=== PATIENT | female | born 1985 | race Caucasian/White ===

== ENCOUNTER → 2017-03-19 10:02 | Outpatient (CLI) | payer BC, SELFPAY | PROVIDERS: Family Provider Family Medicine; PCP Family Medicine; Visit Provider Obstetrics & Gynecology | DX: O28.5 Abnormal chromosomal and genetic finding on antenatal screening of mother (principal); Z3A.00 Weeks of gestation of pregnancy not specified | CPT/HCPCS: 36415 ==

== ENCOUNTER → 2017-04-10 09:27 | Outpatient (CLI) | payer BC, SELFPAY ==
[2017-04-10 13:19] LABS: Absolute Lymphocyte Count 0.97 X10^3/ul (0.83-4.51); Absolute Neutrophil Count 2.7 X10^3/uL (2.0-7.7); Basophil# 0.01 X10^3/uL; Basophil% 0.3 % (0-1); Eosinophil# 0.04 X10^3/uL; Hematocrit 37.7 % (37-47); Hemoglobin 12.7 g/dl (12.0-15.0); Lymphocyte # 0.97 X10^3/ul (4.0); Lymphocyte % 24.9 % (19-41); Mean Corp Hgb Conc 33.7 g/gl (32-36); Mean Corpuscular Hgb 31.4 pg (27.0-32.0); Mean Corpuscular Volume 93.3 fL (81-99); Mean Platelet Vol. 10.3 fl (6.2-12.0); Monocyte# 0.19 X10^3/uL; Monocyte% 4.9 % (0-10); Neutrophil # 2.69 X10^3/uL (2.7-7.7); Neutrophil % 68.9 % (47-70); Platelet Count 210 K/mm3 (150-450); RBC Distribution Width CV 12.6 % (11.6-14.6); RBC Distribution Width SD 43.2 fl (35.1-43.9); Red Blood Count 4.04 M/mm3 (4.2-5.4); White Blood Count 3.9 K/mm3 (4.4-11.0)
[2017-04-10 13:29] LABS: POSITIVE COUNT NO; POSITIVE DIFFERENTIAL NO; POSITIVE MORPHOLOGY NO
[2017-04-11 07:07] LABS: HIV 1/0/2 SCREEN 4TH GEN Non Reactive (Non Reactive)
[2017-04-11 08:01] LABS: HEPATITIS B SURFACE AG Negative (Negative)
[2017-04-11 10:46] LABS: Rubella IgG 33.5 IU/mL
[2017-04-13 07:08] LABS: Rapid Plasmin Reagin (RPR) NONREACTIVE (NONREACTIVE)
== END ==
PROVIDERS: Family Provider Family Medicine; PCP Family Medicine; Visit Provider Obstetrics & Gynecology
DX: Z34.90 Encounter for supervision of normal pregnancy, unspecified, unspecified trimester (principal)
CPT/HCPCS: 36415; 85025; 86592; 86703; 86762; 86850; 86900; 87340

== ENCOUNTER → 2017-05-24 15:33 | Outpatient (CLI) | payer BC, SELFPAY | LOC: LAB 15:35 | PROVIDERS: Family Provider Family Medicine; PCP Family Medicine; Visit Provider Obstetrics & Gynecology | DX: O26.21 Pregnancy care for patient with recurrent pregnancy loss, first trimester (principal); R76.0 Raised antibody titer; Z3A.00 Weeks of gestation of pregnancy not specified | CPT/HCPCS: 36415 ==

== ENCOUNTER → 2017-06-26 11:26 | Outpatient (CLI) | payer BC, SELFPAY ==
[2017-06-26 12:39] LABS: Absolute Lymphocyte Count 1.31 X10^3/ul (0.83-4.51); Absolute Neutrophil Count 4.2 X10^3/uL (2.0-7.7); Basophil# 0.01 X10^3/uL; Basophil% 0.2 % (0-1); Eosinophil# 0.05 X10^3/uL; Eosinophils% 0.8 % (0-5); Hematocrit 34.5 % (37-47); Hemoglobin 11.1 g/dl (12.0-15.0); Lymphocyte # 1.31 X10^3/ul (4.0); Lymphocyte % 22.1 % (19-41); Mean Corp Hgb Conc 32.2 g/gl (32-36); Mean Corpuscular Volume 96.4 fL (81-99); Mean Platelet Vol. 9.4 fl (6.2-12.0); Monocyte# 0.32 X10^3/uL; Monocyte% 5.4 % (0-10); Neutrophil # 4.24 X10^3/uL (2.7-7.7); Neutrophil % 71.3 % (47-70); Platelet Count 184 K/mm3 (150-450); RBC Distribution Width CV 13.6 % (11.6-14.6); RBC Distribution Width SD 47.5 fl (35.1-43.9); Red Blood Count 3.58 M/mm3 (4.2-5.4); White Blood Count 5.9 K/mm3 (4.4-11.0)
[2017-06-26 12:42] LABS: POSITIVE COUNT NO; POSITIVE DIFFERENTIAL NO; POSITIVE MORPHOLOGY NO
[2017-06-26 13:09] LABS: Glucose Challenge Gest 1H 50g 103 mg/dL (70-140)
== END ==
PROVIDERS: Family Provider Family Medicine; PCP Family Medicine; Visit Provider Nurse Practitioner Women's Health
DX: O09.92 Supervision of high risk pregnancy, unspecified, second trimester (principal)
CPT/HCPCS: 36415; 82950; 85025

== ENCOUNTER 2017-07-21 20:25 | Outpatient (CLI) | payer BC, SELFPAY ==
[2017-07-21] MEDS: Lactated Ringers 1,000 ML 999 ML IV (21:00)
[2017-07-21 21:09] LABS: Absolute Neutrophil Count 5.4 X10^3/uL (2.0-7.7); Basophil# 0.01 X10^3/uL; Basophil% 0.1 % (0-1); Eosinophil# 0.09 X10^3/uL; Eosinophils% 1.2 % (0-5); Hematocrit 35.3 % (37-47); Hemoglobin 11.7 g/dl (12.0-15.0); Lymphocyte % 20.1 % (19-41); Mean Corp Hgb Conc 33.1 g/gl (32-36); Mean Corpuscular Hgb 31.4 pg (27.0-32.0); Mean Corpuscular Volume 94.6 fL (81-99); Mean Platelet Vol. 9.4 fl (6.2-12.0); Monocyte# 0.45 X10^3/uL; Neutrophil # 5.42 X10^3/uL (2.7-7.7); Neutrophil % 72.5 % (47-70); POSITIVE COUNT NO; POSITIVE DIFFERENTIAL NO; POSITIVE MORPHOLOGY NO; Platelet Count 188 K/mm3 (150-450); RBC Distribution Width SD 48.1 fl (35.1-43.9); Red Blood Count 3.73 M/mm3 (4.2-5.4); White Blood Count 7.5 K/mm3 (4.4-11.0)
[2017-07-21 21:11] VITALS: BMI 32.5
[2017-07-21] MEDS: HYDROmorphone 1 MG/ML Syringe IV (21:16)
[2017-07-21 21:52] LABS: Color, Urine Yellow (Yellow); Glucose, Dipstick Normal (Normal); Ketone-Dipstick Negative (Negative); Leukocyte Esterase-Dipstick 25 /ul (Negative); Nitrite-Dipstick Negative (Negative); Occult Blood-Urine 250 /ul (Negative); Protein-Dipstick 30 mg/dl (Negative); Specific Gravity, Urine 1.015 (1.002-1.030); Urine Bilirubin Dipstick Negative (Negative); Urine Clarity Sl. Cloudy (Clear); Urine Urobilinogen 8 mg/dl (Normal)
[2017-07-21 22:00] LABS: Red Blood Cells-Urine 10-25 SEEN /hpf (0-5); Squamous Epithelial Cells - UA 0-5 SEEN /hpf (5-10); White Blood Cells 0-5 SEEN /hpf (0-5)
[2017-07-21 22:01] LABS: Bacteria 1+ /hpf (None Seen); Mucous, Urine 1+ /hpf (<or=2+)
[2017-07-21] MEDS: Lactated Ringers 1,000 ML 200 ML IV (22:02)
[2017-07-21] MEDS: oxyCODONE 5 MG Tablet PO (23:20)
[2017-07-22] MEDS: proMETHazine 25 MG/ML Syringe 12.5 MG IV (01:00)
[2017-07-22] MEDS: Lactated Ringers 1,000 ML 200 ML IV ×2 (03:10→07:58)
--- NOTE | 2017-07-22 07:00 | US_ITS ---
STUDY: RENAL ULTRASOUND - COMPLETE REASON FOR EXAM: Female, 31 years old. Hematuria TECHNIQUE: Ultrasound evaluation of the kidneys was performed with real-time and static bird-scale imaging. COMPARISON: None. FINDINGS: RIGHT KIDNEY: Normal location of the right kidney, which is normal in size. The right kidney measures 10.8 x 5.5 x 4.9 cm. There is a normal cortex of the right kidney. The renal cortex measures 1.6 cm. There is no right renal mass or cyst. There may be a punctate stone in the right kidney versus artifact. There is mild right pelviectasis. DISTAL RIGHT URETER: There is non-visualization of the distal right ureter. There is no demonstrated right ureterovesical junction calculus. There is a visualized right ureteral jet. LEFT KIDNEY: Normal location of the left kidney, which is normal in size. The left kidney measures 11.2 x 5.2 x 4.0 cm. There is a normal cortex of the left kidney. The renal cortex measures 1.5 cm. There is no left renal mass or cyst. There are no left renal calculi. There is no left hydronephrosis. DISTAL LEFT URETER: There is non-visualization of the distal left ureter. There is no demonstrated left ureterovesical junction calculus. There is a visualized left ureteral jet. BLADDER: The distended urinary bladder has a volume of 544.6 ml. The empty urinary bladder has a volume of 10.6 ml. There is a normal wall thickness of the distended urinary bladder. There is no demonstrated mass within the urinary bladder. On the right side of the bladder there is a 6.7 mm echogenicity suggesting a stone at the right ureterovesicular junction. There is a partially visualized gravid uterus. US/Kidney and Bladder IMPRESSION: Mild right pelviectasis. There is a 6.7 mm echogenic density at the right side base of the bladder suggestive of a small bladder stone or stone just at the right-sided ureterovesicular junction. Punctate stone right kidney suggested versus artifact. No visualized left-sided hydronephrosis. Electronically Signed: Janette Christian MD at 10:42 EDT Tel , Service support ,
--- NOTE | 2017-07-22 11:02 | OB.TRI.NOTE ---
- Problem List (1) Calculus of kidney affecting in third trimester Status: Acute Comment: percocet given 07/22/17, fluids. in right side of bladder History of Present Illness Date of Service: 07/22/17 Was patient seen by the physician?: Yes Reason For Visit: KIDNEY STONES Date of Service: 07/22/17 Final ANGELIKA: 09/25/17 Gestational age: 30 Weeks and 5 Days History of Present Illness: 31 yo presents at 30 weeks with right sided back pain, severe. she has a history of kidney stones. she denies any fever, vaginal bleeding, regular ctxs. she admits good fm. Allergies No Known Allergies Allergy (Verified 07/21/17 21:14) Physical Exam General: Alert, Cooperative, No apparent distress HEENT: Atraumatic, Normocephalic. Negative for: Thyromegaly, Lymphadenopathy Cardiovascular: Regular rate Lungs: Normal air movement Abdomen: Soft, Non Tender, Gravid Neurological: Deep Tendon Reflexes 2+/4 and Symmetrical, Neuro grossly intact. 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 Negative for: Vulvar lesions Estimated gestational size: Appropriate for gestational size Presentation: Cephalic NST - FHR Rate Baby A Baseline: 150 Variability:: Moderate Accelerations:: 15 x 15 Decelerations:: None NST Reactive:: Yes FHR Category:: Category I Uterine Activity:: no regular Impression/Plan 31 yo 33 weeks with kidney stone no signs of inection- s/p IVFs and pain medication. dc home aggressive fluids and pain meds PRN. renal ultrasound shows stone and no blockage. fu in office.
--- NOTE | 2017-07-22 11:05 | OB.TRI.HP_ITS ---
- Problem List (1) Calculus of kidney affecting in third trimester Status: Acute Comment: percocet given 07/22/17, fluids. in right side of bladder History of Present Illness Date of Service: 07/22/17 Was patient seen by the physician?: Yes Reason For Visit: KIDNEY STONES Date of Service: 07/22/17 Final ANGELIKA: 09/25/17 Gestational age: 30 Weeks and 5 Days History of Present Illness: 31 yo presents at 30 weeks with right sided back pain, severe. she has a history of kidney stones. she denies any fever, vaginal bleeding, regular ctxs. she admits good fm. Allergies No Known Allergies Allergy (Verified 07/21/17 21:14) Physical Exam General: Alert, Cooperative, No apparent distress HEENT: Atraumatic, Normocephalic. Negative for: Thyromegaly, Lymphadenopathy Cardiovascular: Regular rate Lungs: Normal air movement Abdomen: Soft, Non Tender, Gravid Neurological: Deep Tendon Reflexes 2+/4 and Symmetrical, Neuro grossly intact. 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 Negative for: Vulvar lesions Estimated gestational size: Appropriate for gestational size Presentation: Cephalic NST - FHR Rate Baby A Baseline: 150 Variability:: Moderate Accelerations:: 15 x 15 Decelerations:: None NST Reactive:: Yes FHR Category:: Category I Uterine Activity:: no regular Impression/Plan 31 yo 33 weeks with kidney stone no signs of inection- s/p IVFs and pain medication. dc home aggressive fluids and pain meds PRN. renal ultrasound shows stone and no blockage. fu in office.
== END 2017-07-22 11:18 | disposition home or self-care (01) ==
LOC: WPOUT 20:39 → WP 20:39
PROVIDERS: Family Provider Family Medicine; PCP Family Medicine; Visit Provider Obstetrics & Gynecology
DX: O99.89 Other specified diseases and conditions complicating pregnancy, childbirth and the puerperium (principal); N20.0 Calculus of kidney; Z3A.33 33 weeks gestation of pregnancy; Z87.442 Personal history of urinary calculi
CPT/HCPCS: 96361 ×10; 96374; 36415; 59025; 59050; 76770; 81001; 85025; 87086; 87088; 99218; J7120; G0378

== ENCOUNTER → 2017-08-14 17:10 | Outpatient (CLI) | payer BC, SELFPAY ==
[2017-08-14 17:59] LABS: Protein, Urine (Random) 32.6 mg/dL (<11.9); Protein:Creat Ratio 108 mg/g CRE (0-200)
== END ==
PROVIDERS: Family Provider Family Medicine; PCP Family Medicine; Visit Provider Obstetrics & Gynecology
DX: O09.90 Supervision of high risk pregnancy, unspecified, unspecified trimester (principal)
CPT/HCPCS: 82570; 84156

== ENCOUNTER → 2017-08-28 17:28 | Outpatient (CLI) | payer BC, SELFPAY ==
[2017-08-28 21:17] LABS: Group B Strep DNA By PCR Negative (Negative); Internal Control PASS; Probe Check PASS; Specimen Processing Control PASS
== END ==
PROVIDERS: Family Provider Family Medicine; PCP Family Medicine; Visit Provider Obstetrics & Gynecology
DX: O09.93 Supervision of high risk pregnancy, unspecified, third trimester (principal)
CPT/HCPCS: 87081; 87653

== ENCOUNTER 2017-09-18 03:50 | Inpatient (IN) | payer BC, SELFPAY ==
[2017-09-18] VITALS (11 sets, daily range): BP systolic 89–113; BP diastolic 41–71; PULSE 60–76; RESP 11–18; TEMP 36–37.2; O2SAT 95–99; BMI 34.4
[2017-09-18] MEDS: Lactated Ringers 1,000 ML 50 ML IV ×4 (04:10→15:40)
[2017-09-18 04:22] LABS: Hematocrit 32.3 % (37-47); Hemoglobin 10.6 g/dl (12.0-15.0); Mean Corp Hgb Conc 32.8 g/gl (32-36); Mean Corpuscular Hgb 30.5 pg (27.0-32.0); Mean Corpuscular Volume 92.8 fL (81-99); Platelet Count 185 K/mm3 (150-450); RBC Distribution Width CV 13.9 % (11.6-14.6); RBC Distribution Width SD 45.5 fl (35.1-43.9); Red Blood Count 3.48 M/mm3 (4.2-5.4); White Blood Count 4.9 K/mm3 (4.4-11.0)
[2017-09-18 04:25] LABS: Scan Indicated on CBC? Y/N NO
[2017-09-18] MEDS: Nalbuphine 10 MG/ML Ampul IV (06:00)
[2017-09-18] MEDS: 0.9% Saline Lock 10 ML Syringe IV ×2 (06:01→09:35)
--- NOTE | 2017-09-18 06:48 | PCM.HP.OB ---
- Problem List (1) Polyhydramnios affecting in third trimester Status: Acute Comment: weekly nsts (2) Calculus of kidney affecting in third trimester Status: Acute Comment: percocet given 07/22/17, fluids. 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 she has had a complicated by polyhydramnios and a cystic hygroma but normal genetics. she initially had a positive APL ab but repeat testing was negative. Medical History: Medical History (Last Reviewed 09/13/17 @ 09:15 by Robyn James) Kidney stone N20.0 Allergies No Known Allergies Allergy (Verified 09/13/17 09:16) Home Medications: Home Medications vitamin,calcium,qhpdepoc-ywiw-fovzo acid tablet 1 tab PO QDAY 02/23/17 ranitidine 150 mg tablet 150 mg PO BID #60 tab 07/03/17 Smoking Status: Never smoker Alcohol: None Number of Fetus(es): 1 Heart Tracin moderate variability reactive no decels cat I tracing TOCO Analysis: q2-4 History Past Pregnancies: Past Pregnancies 3 early SABs Delivery Date Name GA/Weeks Outcome Route Weight Infant Gender Labor Length Anesthesia Delivery Location Provider FOB Labs: [facility] Labs & Results 09/18/17 09/18/17 04:10 04:10 WBC 4.9 RBC 3.48 L Hgb 10.6 L Hct 32.3 L MCV 92.8 MCH 30.5 MCHC 32.8 RDW 13.9 RDW Differential 45.5 H Plt Count 185 MPV 10.0 Blood Type B POSITIVE Antibody Screen NEGATIVE Course Did the patient receive Yes care? Labs Blood Type: B RH: POSITIVE RPR/VDRL/Syphilis Nonreactive Rubella status Immune HbSAg Negative Date Done: 04/10/17 Chlamydia Negative Gonorrhea Negative HIV/AIDS Non-Reactive Group B Strep: Negative Current Obstetrical History Gestational Diabetes No Incompetent Cervix No Infertility No IUGR No Macrosomia No Hypertension/Pre-eclampsia No Placenta Previa/Abruption No PTL/PROM No Uterine anomaly No Oligohydramnios No Polyhydramnios Yes Multiple gestation No Past Medical History Asthma No Diabetes No Hypertension No Heart disease No Mitral valve prolapse No Neurologic/Seizure disorder/ No Migraines Kidney disease No Liver disease No Varicosities No Clotting disorders/Hx of DVT No Thyroid Dysfunction No Other medical diseases No Psychiatric disorders No Major trauma No Abnormal PAP smear No Sleep apnea No Mammogram in the last 2 years No Medications Taken During Last Date/Time of Medication July 2017 Taken: [Percocet] Reason for taking medication [ Kidney stones Percocet] Social History Marital Status: Alleged father Jeremy Starr Hx Smoking No Smoking Status Never smoker Expected Delivery Method: Spontaneous Vaginal Review of Systems Constitutional: Denies: Fever, Malaise Eyes: Denies: Blurred vision, Vision Change HEENT: Denies: Head Aches, Visual Changes Cardiovascular: Denies: Chest Pain, Palpitations Respiratory: Denies: Cough, Shortness of Breath, Wheezing Gastrointestinal: Denies: Abdominal Pain, Diarrhea, Nausea, Vomiting Genitourinary: Denies: Dysuria, Hematuria Musculoskeletal: Denies: Joint Pain, Muscle pain Skin: Denies: Lesions, Rash Neurological: Denies: Blurred vision, Focal weakness, Headaches Psychiatric: Denies: Anxiety, Depression Endocrine: Denies: Heat/ Cold Intolerance Hematologic/ Lymphatic: Denies: Easy Bruising, Easy Bleeding Physical Exam General: Alert, Cooperative, No apparent distress HEENT: Atraumatic, Normocephalic. Negative for: Thyromegaly, Lymphadenopathy Cardiovascular: Regular rate Lungs: Normal air movement Abdomen: Soft, Non Tender, Gravid Neurological: Deep Tendon Reflexes 2+/4 and Symmetrical, Neuro grossly intact. 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 admit IAL gbs neg epi PRN exp management
--- NOTE | 2017-09-18 06:52 | HP.PCM_ITS ---
- Problem List (1) Polyhydramnios affecting in third trimester Status: Acute Comment: weekly nsts (2) Calculus of kidney affecting in third trimester Status: Acute Comment: percocet given 07/22/17, fluids. 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 she has had a complicated by polyhydramnios and a cystic hygroma but normal genetics. she initially had a positive APL ab but repeat testing was negative. Medical History: Medical History (Last Reviewed 09/13/17 @ 09:15 by Robyn James) Kidney stone N20.0 Allergies No Known Allergies Allergy (Verified 09/13/17 09:16) Home Medications: Home Medications vitamin,calcium,qnuojkws-ibyj-nvrvg acid tablet 1 tab PO QDAY 02/23/17 ranitidine 150 mg tablet 150 mg PO BID #60 tab 07/03/17 Smoking Status: Never smoker Alcohol: None Number of Fetus(es): 1 Heart Tracin moderate variability reactive no decels cat I tracing TOCO Analysis: q2-4 History Past Pregnancies: Past Pregnancies 3 early SABs Delivery Date Name GA/Weeks Outcome Route Weight Infant Gender Labor Length Anesthesia Delivery Location Provider FOB Labs: [facility] Labs & Results 09/18/17 09/18/17 04:10 04:10 WBC 4.9 RBC 3.48 L Hgb 10.6 L Hct 32.3 L MCV 92.8 MCH 30.5 MCHC 32.8 RDW 13.9 RDW Differential 45.5 H Plt Count 185 MPV 10.0 Blood Type B POSITIVE Antibody Screen NEGATIVE Course Did the patient receive Yes care? Labs Blood Type: B RH: POSITIVE RPR/VDRL/Syphilis Nonreactive Rubella status Immune HbSAg Negative Date Done: 04/10/17 Chlamydia Negative Gonorrhea Negative HIV/AIDS Non-Reactive Group B Strep: Negative Current Obstetrical History Gestational Diabetes No Incompetent Cervix No Infertility No IUGR No Macrosomia No Hypertension/Pre-eclampsia No Placenta Previa/Abruption No PTL/PROM No Uterine anomaly No Oligohydramnios No Polyhydramnios Yes Multiple gestation No Past Medical History Asthma No Diabetes No Hypertension No Heart disease No Mitral valve prolapse No Neurologic/Seizure disorder/ No Migraines Kidney disease No Liver disease No Varicosities No Clotting disorders/Hx of DVT No Thyroid Dysfunction No Other medical diseases No Psychiatric disorders No Major trauma No Abnormal PAP smear No Sleep apnea No Mammogram in the last 2 years No Medications Taken During Last Date/Time of Medication July 2017 Taken: [Percocet] Reason for taking medication [ Kidney stones Percocet] Social History Marital Status: Alleged father Jeremy Starr Hx Smoking No Smoking Status Never smoker Expected Delivery Method: Spontaneous Vaginal Review of Systems Constitutional: Denies: Fever, Malaise Eyes: Denies: Blurred vision, Vision Change HEENT: Denies: Head Aches, Visual Changes Cardiovascular: Denies: Chest Pain, Palpitations Respiratory: Denies: Cough, Shortness of Breath, Wheezing Gastrointestinal: Denies: Abdominal Pain, Diarrhea, Nausea, Vomiting Genitourinary: Denies: Dysuria, Hematuria Musculoskeletal: Denies: Joint Pain, Muscle pain Skin: Denies: Lesions, Rash Neurological: Denies: Blurred vision, Focal weakness, Headaches Psychiatric: Denies: Anxiety, Depression Endocrine: Denies: Heat/ Cold Intolerance Hematologic/ Lymphatic: Denies: Easy Bruising, Easy Bleeding Physical Exam General: Alert, Cooperative, No apparent distress HEENT: Atraumatic, Normocephalic. Negative for: Thyromegaly, Lymphadenopathy Cardiovascular: Regular rate Lungs: Normal air movement Abdomen: Soft, Non Tender, Gravid Neurological: Deep Tendon Reflexes 2+/4 and Symmetrical, Neuro grossly intact. Negative for: Clonus RN TRAVELING: Normal external genitalia. 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 admit IAL gbs neg epi PRN exp management
[2017-09-18] MEDS: Mag Hydrox/Al Hydrox/Simeth 30 ML UDC PO (08:02)
[2017-09-18] MEDS: fentaNYL-bupivacaine (epidural) 100 ML BAG EPIDURAL ×2 (11:22→15:40)
[2017-09-18] MEDS: Amnioinfusion- 0.9% NS 1,000 ML IV.SOLN. INTRA-UTER ×2 (13:15→15:47)
[2017-09-18] MEDS: Oxytocin 30 units/NS 500 ml 30 UNITS/500 ML IV.SOLN 167 UNITS IV (17:33)
--- NOTE | 2017-09-18 18:12 | PCM.OPRPT ---
Problem List (1) Polyhydramnios affecting in third trimester Status: Acute Comment: weekly nsts (2) Calculus of kidney affecting in third trimester Status: Acute Comment: percocet given 07/22/17, fluids. 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 Status: Acute (5) Supervision of high-risk Status: Acute Qualifiers: Comment: PRR ANGELIKA 09/25/17 girl on NIPT - H[facility] Report of Operation Date of Procedure: 09/18/17 Pre-Operative Diagnosis: ial srom Post-Operative Diagnosis: same plus recurrent decelarations Surgery/Procedure Performed:: primary csection Description of Surgical Findings:: vertex female nuchal cord x 1 drop hammer set up operator: Ghassan Mcrae Type of Anesthesia:: Epidural Special Medications: ancef kellyithro Specimen's removed: female vertex Drains: ulloa Estimated Blood Loss (mL): 800 Fluids Replaced: crystalloid Description of Procedure: The patient is a 32-year-old at 39 weeks presented in active labor with cervical change to 4 cm. Patient made slow progress of labor throughout the day and proceeded to 6 cm of dilation. Patient developed periods of marked variability with recurrent severe variables into the 40s lasting 60-90 seconds. With amnioinfusion in position changes the pattern resolved intermittently but then developed marked variability again with recurrent prolonged decelerations the patient was not making normal labor progress after review of the tracing and Pitocin was unable to be started due to the nonreassuring heart rate pattern the patient was still 6 cm so the decision was made to proceed with a primary . Epidural anesthesia was found to be adequate. the patient was placed in the dorsal supine position with leftward tilt. Patient was prepped and draped in the normal sterile fashion. Pfannenstiel skin incision was made with the scalpel and carried through to the underlying layer of fascia with the scalpel. Fascia was nicked in the midline and the incision extended laterally. The peritoneum was entered digitally. The incision was stretched and a low transverse uterine incision was made with the scalpel. The infant's head was delivered atraumatically followed by the anterior and posterior shoulders without complication the rest of the delivered. The cord was clamped and cut and the was handed off to awaiting nurse. The placenta was delivered spontaneously immediately following and was noted to be intact and have a three-vessel cord. The uterus was exteriorized cleared of all clots and debris, and the incision was closed in a double layer closure using #1 Monocryl. right o leary stitch was placed. The uterus was returned to the maternal abdomen and gutters were cleared of all clots and debris. The ovaries and fallopian tubes were noted to be within normal limits. The peritoneum was closed with 3-0 Monocryl in a running fashion. Fascia was closed with 0 PDS in a running fashion. Subcutaneous tissue was copiously irrigated and the skin was closed with 3-0 Monocryl in a subcuticular fashion. Steri-Strips and Mepilex dressing were applied without complication. Patient was taken to recovery in stable condition. Grafts/Implants Used: none - Complications none - Admit VTE Documentation VTE Present on Admission: No VTE Mechan Device Prophylaxis: SCD's
--- NOTE | 2017-09-18 19:12 | NURSING ---
Bare hugger on for warmth.
[2017-09-18] MEDS: Lactated Ringers 1,000 ML 100 ML IV (19:55)
[2017-09-18] MEDS: HYDROmorphone 1 MG/ML Syringe IV (21:20)
[2017-09-18] MEDS: Ketorolac 30 MG/ML Syringe IV (23:01)
[2017-09-19] MEDS: HYDROmorphone 1 MG/ML Syringe IV ×2 (00:28→08:00)
[2017-09-19 00:30] VITALS: BP 95/51; PULSE 85; RESP 16; TEMP 37.1; O2SAT 97
[2017-09-19 02:40] VITALS: BP 95/52; PULSE 77; RESP 16; TEMP 36.8; O2SAT 96
[2017-09-19] MEDS: oxyCODONE 5 MG Tablet PO ×3 (03:37→22:29)
[2017-09-19] MEDS: Ketorolac 30 MG/ML Syringe IV ×3 (05:16→17:50)
[2017-09-19] MEDS: 0.9% Saline Lock 10 ML Syringe IV ×4 (05:16→17:49)
[2017-09-19 05:35] LABS: Hematocrit 27.8 % (37-47); Hemoglobin 9.1 g/dl (12.0-15.0); Mean Corp Hgb Conc 32.7 g/gl (32-36); Mean Corpuscular Hgb 30.4 pg (27.0-32.0); Mean Platelet Vol. 9.5 fl (6.2-12.0); Platelet Count 154 K/mm3 (150-450); RBC Distribution Width CV 13.5 % (11.6-14.6); RBC Distribution Width SD 44.4 fl (35.1-43.9); Red Blood Count 2.99 M/mm3 (4.2-5.4); White Blood Count 7.4 K/mm3 (4.4-11.0)
[2017-09-19 05:38] LABS: Scan Indicated on CBC? Y/N NO
[2017-09-19 06:58] VITALS: BP 94/59; PULSE 81; RESP 18; TEMP 36.8; O2SAT 96
--- NOTE | 2017-09-19 08:05 | PN.OBGYN_ITS ---
Subjective: Pain not well controlled. Denies CP, states a little SOB but won't take deep breaths due to pain. Ulloa still in place. Did not get duramorph. - Physical Exam General: Alert, Oriented x3 Abdomen: Soft, Non-Distended, - - Tender with exam. Dressing dry and intact. FF below U Vital Signs Temp Pulse Resp BP Pulse Ox 98.3 F 81 18 94/59 L 96 09/19/17 06:58 09/19/17 06:58 09/19/17 06:58 09/19/17 06:58 09/19/17 06:58 Oxygen Delivery Method Room Air Weight: 213 lb 4 oz Body Mass Index (BMI) 34.4 Intake and Output for Last 24 Hours 09/17/17 09/18/17 09/19/17 23:59 23:59 23:59 Intake Total 3320 / 3320 1125 / 1125 Output Total 1000 / 1000 1950 / 1950 Balance 2320 / 2320 -825 / -825 Laboratory Tests Past 24 Hrs 09/19/17 05:30 WBC 7.4 RBC 2.99 L Hgb 9.1 L Hct 27.8 L MCV 93.0 MCH 30.4 MCHC 32.7 RDW 13.5 RDW Differential 44.4 H Plt Count 154 MPV 9.5 Medical Necessity - Tobacco Use Smoking Status: Never smoker Assessment/Plan All Active Problems (Last Reviewed 09/13/17 @ 09:15 by Robyn James) (Acute) Polyhydramnios affecting in third trimester (Acute) Calculus of kidney affecting in third trimester (Acute) Cystic hygroma (Acute) Antiphospholipid antibody positive (Acute) 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
[2017-09-19] MEDS: Famotidine 20 MG Tablet PO (10:12)
[2017-09-19 12:00] VITALS: BP 108/60; PULSE 95; RESP 18; TEMP 37.5; O2SAT 100
[2017-09-19] MEDS: Prenatal Vits Tablet 1 TABLET PO (13:12)
--- NOTE | 2017-09-19 14:48 | NURSING ---
assessment unchanged 1200 emptied 1400 cc urine from catheter
--- NOTE | 2017-09-19 15:49 | CPS ---
explained to patient and family and she will start incentive after she is done .
[2017-09-19 16:00] VITALS: BP 110/62; PULSE 95; RESP 16; TEMP 37.4; O2SAT 98
[2017-09-19] MEDS: Senna/Docusate Sodium 1 Tablet PO (17:49)
[2017-09-19 21:45] VITALS: BP 122/68; PULSE 80; RESP 18; TEMP 37.3; O2SAT 97
[2017-09-20] MEDS: Ketorolac 30 MG/ML Syringe IV ×4 (00:29→17:40)
[2017-09-20 02:50] VITALS: BP 98/53; PULSE 73; RESP 16; TEMP 37.2; O2SAT 96
[2017-09-20] MEDS: oxyCODONE 5 MG Tablet PO ×4 (02:58→20:03)
--- NOTE | 2017-09-20 07:48 | PCM.PN.OB ---
Subjective: NO CP. Minimal SOB with activity. Using spirometer. Pain now controlled. - Physical Exam General: Alert, Oriented x3 Abdomen: Soft, Non Tender, Passing Flatus, - Skin: No breakdown - FF below U Vital Signs Temp Pulse Resp BP Pulse Ox 99.0 F 73 16 98/53 L 96 09/20/17 02:50 09/20/17 02:50 09/20/17 02:50 09/20/17 02:50 09/20/17 02:50 Oxygen Delivery Method Room Air Weight: 213 lb 4 oz Body Mass Index (BMI) 34.4 Intake and Output for Last 24 Hours 09/18/17 09/19/17 09/20/17 23:59 23:59 23:59 Intake Total 3320 / 3320 1125 / 1125 Output Total 1000 / 1000 2550 / 2550 Balance 2320 / 2320 -1425 / -1425 Medical Necessity - Tobacco Use Smoking Status: Never smoker Assessment/Plan All Active Problems (Last Reviewed 09/13/17 @ 09:15 by Robyn James) (Acute) Polyhydramnios affecting in third trimester (Acute) Calculus of kidney affecting in third trimester (Acute) Cystic hygroma (Acute) Antiphospholipid antibody positive (Acute) 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 Routine care.
--- NOTE | 2017-09-20 07:51 | PN.OBGYN_ITS ---
Subjective: NO CP. Minimal SOB with activity. Using spirometer. Pain now controlled. - Physical Exam General: Alert, Oriented x3 Abdomen: Soft, Non Tender, Passing Flatus, - Skin: No breakdown - FF below U Vital Signs Temp Pulse Resp BP Pulse Ox 99.0 F 73 16 98/53 L 96 09/20/17 02:50 09/20/17 02:50 09/20/17 02:50 09/20/17 02:50 09/20/17 02:50 Oxygen Delivery Method Room Air Weight: 213 lb 4 oz Body Mass Index (BMI) 34.4 Intake and Output for Last 24 Hours 09/18/17 09/19/17 09/20/17 23:59 23:59 23:59 Intake Total 3320 / 3320 1125 / 1125 Output Total 1000 / 1000 2550 / 2550 Balance 2320 / 2320 -1425 / -1425 Medical Necessity - Tobacco Use Smoking Status: Never smoker Assessment/Plan All Active Problems (Last Reviewed 09/13/17 @ 09:15 by Robyn James) (Acute) Polyhydramnios affecting in third trimester (Acute) Calculus of kidney affecting in third trimester (Acute) Cystic hygroma (Acute) Antiphospholipid antibody positive (Acute) 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 Routine care.
[2017-09-20] MEDS: Senna/Docusate Sodium 1 Tablet PO (09:42)
[2017-09-20 09:45] VITALS: BP 98/52; PULSE 84; RESP 24; TEMP 37.3; O2SAT 96
[2017-09-20] MEDS: 0.9% Saline Lock 10 ML Syringe IV ×2 (11:56→17:39)
[2017-09-20] MEDS: Prenatal Vits Tablet 1 TABLET PO (11:56)
[2017-09-20 12:00] VITALS: BP 111/76; PULSE 88; TEMP 37.3; O2SAT 95
--- NOTE | 2017-09-20 12:45 | RAD_ITS ---
STUDY: X-RAY CHEST REASON FOR EXAM: Female, 32 years old. Dyspnea and shortness of breath. Recent . TECHNIQUE: PA and lateral views of the chest. COMPARISON: Comparison is made with prior examination dated January 15, 2011. FINDINGS: The lungs are clear and expanded. There is no demonstrated pleural abnormality. Normal size heart. Normal mediastinum and john. Normal visualized pulmonary arteries. Normal visualized aortic arch and descending thoracic aorta. Normal visualized thoracic spine. Normal visualized ribs, clavicles, and shoulders. There is no demonstrated abnormality of the visualized soft tissue structures of the upper abdomen. RAD/Chest PA and Lateral IMPRESSION: Normal x-ray examination of the chest. Electronically Signed: Evan Joyner MD at 13:23 EDT Tel [phone], Service support ,
[2017-09-20 15:45] VITALS: BP 113/63; PULSE 69; TEMP 37.2; O2SAT 97
[2017-09-20 20:00] VITALS: BP 106/66; PULSE 75; RESP 16; TEMP 36.7; O2SAT 98
[2017-09-21 01:20] VITALS: BP 118/70; PULSE 71; RESP 16; TEMP 36.9; O2SAT 97
[2017-09-21] MEDS: oxyCODONE 5 MG Tablet PO ×3 (01:23→09:33)
--- NOTE | 2017-09-21 07:51 | PCM.PN.OB ---
Subjective: No CP. SOB improved. Ambulating and voiding without difficulty. Plans home today. - Physical Exam General: Alert, Oriented x3 Abdomen: Soft, Non-Distended, - - FF below U. Minimal tenderness with exam. Dressing dry and intact Vital Signs Temp Pulse Resp BP Pulse Ox 98.5 F 71 16 118/70 97 09/21/17 01:20 09/21/17 01:20 09/21/17 01:20 09/21/17 01:20 09/21/17 01:20 Oxygen Delivery Method Room Air Weight: 213 lb 4 oz Body Mass Index (BMI) 34.4 Intake and Output for Last 24 Hours 09/19/17 09/20/17 09/21/17 23:59 23:59 23:59 Intake Total 1125 / 1125 Output Total 2550 / 2550 Balance -1425 / -1425 Medical Necessity - Tobacco Use Smoking Status: Never smoker Assessment/Plan All Active Problems (Last Reviewed 09/13/17 @ 09:15 by Robyn James) (Acute) Polyhydramnios affecting in third trimester (Acute) Calculus of kidney affecting in third trimester (Acute) Cystic hygroma (Acute) Antiphospholipid antibody positive (Acute) complicated by 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 DC home today. Routine care.
--- NOTE | 2017-09-21 07:54 | DCINST_ITS ---
Additional Instructions: If you experience any of the following, contact your healthcare provider. * Bleeding that soaks a pad every hour for 2 hours * Fever 100.4 or higher * Unrelieved incision or abdominal pain * Swelling, redness, discharge or bleeding from your incision or episiotomy site * Your incision begins to separate * Problems urinating (including inability to urinate or burning while urinating) . * Visual changes * Severe headache * Flu-like symptoms * Pain or redness in one of both of your breasts * Pain, warmth, tenderness or swelling in your legs, especially the calf area * Frequent nausea and vomiting * Symptoms of depression or anxiety If you experience any of the following, call 911 or go to the nearest Emergency Room. * Chest pain * Problems breathing * Seizure activity * Partial or complete paralysis of a body part, slurred speech, weakness or drooping of the face, or a sudden inability to walk or hold your balance Allergies/Adverse Reactions: Allergies No Known Allergies Allergy (Verified 09/13/17 09:16) Medications to take at Discharge vitamin,calcium,bywnrlsx-xggi-yjskw acid tablet 1 tab PO QDAY 02/23/17 ranitidine 150 mg tablet 150 mg PO BID #60 tab 07/03/17 Oxycodone HCl/Acetaminophen [Percocet 5/325] 1 - 2 tablet PO Q4H PRN PRN 7 Days #28 tablet 09/21/17 The following prescriptions were given: Oxycodone HCl/Acetaminophen [Percocet 5/325] 1 - 2 tablet PO Q4H PRN PRN 7 Days #28 tablet PRN Reason: Pain Follow-Up: Call to make an appointment with your doctor for an incision check in 1-2 weeks. You will also need a 6 week post- follow up appointment. Test results from this visit will be discussed in further detail at your follow- up appointment, if applicable. Primary Care Physician: Raz Solis MD [Primary Care Provider] -
--- NOTE | 2017-09-21 07:54 | PN.OBGYN_ITS ---
Subjective: No CP. SOB improved. Ambulating and voiding without difficulty. Plans home today. - Physical Exam General: Alert, Oriented x3 Abdomen: Soft, Non-Distended, - - FF below U. Minimal tenderness with exam. Dressing dry and intact Vital Signs Temp Pulse Resp BP Pulse Ox 98.5 F 71 16 118/70 97 09/21/17 01:20 09/21/17 01:20 09/21/17 01:20 09/21/17 01:20 09/21/17 01:20 Oxygen Delivery Method Room Air Weight: 213 lb 4 oz Body Mass Index (BMI) 34.4 Intake and Output for Last 24 Hours 09/19/17 09/20/17 09/21/17 23:59 23:59 23:59 Intake Total 1125 / 1125 Output Total 2550 / 2550 Balance -1425 / -1425 Medical Necessity - Tobacco Use Smoking Status: Never smoker Assessment/Plan All Active Problems (Last Reviewed 09/13/17 @ 09:15 by Robyn James) (Acute) Polyhydramnios affecting in third trimester (Acute) Calculus of kidney affecting in third trimester (Acute) Cystic hygroma (Acute) Antiphospholipid antibody positive (Acute) complicated by 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 DC home today. Routine care.
--- NOTE | 2017-09-21 07:54 | PCM.DCCSEC ---
Additional Instructions: If you experience any of the following, contact your healthcare provider. Bleeding that soaks a pad every hour for 2 hours Fever 100.4 or higher Unrelieved incision or abdominal pain Swelling, redness, discharge or bleeding from your incision or episiotomy site Your incision begins to separate Problems urinating (including inability to urinate or burning while urinating). Visual changes Severe headache Flu-like symptoms Pain or redness in one of both of your breasts Pain, warmth, tenderness or swelling in your legs, especially the calf area Frequent nausea and vomiting Symptoms of depression or anxiety If you experience any of the following, call 911 or go to the nearest Emergency Room. Chest pain Problems breathing Seizure activity Partial or complete paralysis of a body part, slurred speech, weakness or drooping of the face, or a sudden inability to walk or hold your balance Allergies/Adverse Reactions: Allergies No Known Allergies Allergy (Verified 09/13/17 09:16) Medications to take at Discharge vitamin,calcium,cdfnqtug-aarx-rynsp acid tablet 1 tab PO QDAY 02/23/17 ranitidine 150 mg tablet 150 mg PO BID #60 tab 07/03/17 Oxycodone HCl/Acetaminophen [Percocet 5/325] 1 - 2 tablet PO Q4H PRN PRN 7 Days #28 tablet 09/21/17 The following prescriptions were given: Oxycodone HCl/Acetaminophen [Percocet 5/325] 1 - 2 tablet PO Q4H PRN PRN 7 Days #28 tablet PRN Reason: Pain Follow-Up: Call to make an appointment with your doctor for an incision check in 1-2 weeks. You will also need a 6 week post- follow up appointment. Test results from this visit will be discussed in further detail at your follow-up appointment, if applicable. Primary Care Physician: Raz Solis MD [Primary Care Provider] -
[2017-09-21] MEDS: Senna/Docusate Sodium 1 Tablet PO (08:00)
[2017-09-21 08:28] VITALS: BP 113/74; PULSE 82; RESP 16; TEMP 36.9; O2SAT 96
--- NOTE | 2017-09-25 08:14 | PCM.DC.SUM ---
Discharge Date and Diagnosis Date of Admission: 09/18/17 Date of Discharge: 09/22/17 Hospital Course and Treatment Consultations 09/18/17 03:55 Consult: Anesthesia Routine Comment: Reason For Exam: Operations: - - ltcs Summary of Care Provided: The patient is a 32 year old F s/p ltcs for non reassuring FHTs had a routine recovery return of bowel and bladder function Discharge Diet: No Restrictions Discharge Activity: Return to Normal Activity Home Medications: Medications to take at Discharge ranitidine 150 mg tablet 150 mg PO BID #60 tab 07/03/17 Oxycodone HCl/Acetaminophen [Percocet 5/325] 1 - 2 tablet PO Q4H PRN PRN 7 Days #28 tablet 09/21/17 Furosemide [Lasix] 40 mg PO DAILY #2 tablet 09/23/17 Following Prescrptions Were Given to Patient: Oxycodone HCl/Acetaminophen [Percocet 5/325] 1 - 2 tablet PO Q4H PRN PRN 7 Days #28 tablet PRN Reason: Pain Primary Care Physician: Raz Solis MD [Primary Care Provider] - Please Follow Up With: Meg Christensen MD When: 2 and 6 weeks Medical Necessity - Tobacco Use Smoking Status: Never smoker Meaningful Use Info Meaningful Use Diagnoses (Choose all that apply): None applicable
== END 2017-09-21 10:10 | disposition home or self-care (01) | DRG 765 ==
LOC: WPOUT 03:53
PROVIDERS: Admitting Provider Obstetrics & Gynecology; Family Provider Family Medicine; PCP Family Medicine; Visit Provider Obstetrics & Gynecology
DX: O76 Abnormality in fetal heart rate and rhythm complicating labor and delivery (principal); O40.3XX0 Polyhydramnios, third trimester, not applicable or unspecified; Z37.0 Single live birth; Z3A.39 39 weeks gestation of pregnancy; D18.1 Lymphangioma, any site
CPT/HCPCS: 59025; 59050; 71046; 85027; 86850; 86900; 99218; J7030; J7120; A4216; G0378; J2405

== ENCOUNTER 2017-09-23 14:46 | Emergency (ER) | payer BC, SELFPAY ==
[2017-09-23 14:48] VITALS: BP 113/79; PULSE 79; RESP 17; TEMP 37.1; O2SAT 95; BMI 32.9
[2017-09-23 15:10] VITALS: O2SAT 100
--- NOTE | 2017-09-23 15:15 | EKG12_ITS ---
Test Reason : SOB Blood Pressure : / mmHG Vent. Rate : 064 BPM Atrial Rate : 064 BPM P-R Int : 162 ms QRS Dur : 074 ms QT Int : 398 ms P-R-T Axes : 051 013 027 degrees QTc Int : 410 ms Normal sinus rhythm Normal ECG Confirmed by AUSTIN CASTILLO, MARIELY ([id number]), social media editor JORDAN DIAZ ([id number]) on 09/26/2017 10:52:00 AM Referred By: VIVEK Confirmed By:MARIELY AVILA MD
--- NOTE | 2017-09-23 15:19 | RAD_ITS ---
STUDY: X-RAY CHEST REASON FOR EXAM: Female, 32 years old. Shortness of breath with chest pain. 5 days ago. TECHNIQUE: AP upright portable view. COMPARISON: 09/20/2017. FINDINGS: The lungs are clear and expanded. There is no demonstrated pleural abnormality. Normal size heart. Normal mediastinum and john. Normal visualized pulmonary arteries. Normal visualized aortic arch and descending thoracic aorta. Normal visualized thoracic spine. Normal visualized ribs, clavicles, and shoulders. There is no demonstrated abnormality of the visualized soft tissue structures of the upper abdomen. RAD/Chest 1 View (Portable) IMPRESSION: Normal x-ray examination of the chest and unchanged since 09/20/2017. Electronically Signed: Harvinder Celeste MD at 15:51 EDT , Service support ,
--- NOTE | 2017-09-23 15:19 | ED.DCSUM_ITS ---
- ER Visit Summary Date of Service: 09/23/17 Chief Complaint: Shortness of breath History of Present Illness: The patient is a 32 F who is currently 5 days from a . Patient states she has had shortness of breath since delivery of her daughter. She did have a chest x-ray when she was still in the hospital that was unremarkable. Patient reports mild shortness of breath at rest but it is significantly worse with any exertion. She does have edema to her legs that is unchanged she has not had significant cough or congestion. She does not have chest pain. Physical Examination: Blood pressure is 113/79, temperature 98.7, heart rate 70 , respiratory rate 17, pulse ox 95% on room air. Patient sitting upright in bed. She is speaking full sentences. Head neck examination is unremarkable. Heart is regular rate and rhythm with no appreciable murmur. Lung sounds are grossly clear. Abdomen is soft with expected postop tenderness of the lower abdomen. Hypoactive bowel sounds are noted throughout. Lower extremity examination reveals 3+ edema that is symmetric. There is no calf tenderness or erythema. Test Results: CBC significant only for hemoglobin 10.4. Chemistry studies unremarkable. Troponin negative. BNP is 203. EKG is sinus at 64 with no sign of acute ischemia. Chest x-ray is unremarkable. CTA of the chest shows no PE or dissection. There is no lung consolidation. Emergency Department Course and Treatment: Test results are discussed with Dr. Christensen. Patient will be given 20 mg of IV Lasix here and given 2 days of Lasix at home. Treatment Plan: [] Disposition: Discharge Impression: Dyspnea with recent This note was generated with [employer] dictation software. It may contain incorrect words, spelling, and punctuation that were not noted in review of the chart prior to signing ED Disposition - Plan for ED Patient: Chief Complaint: Shortness of Breath Referrals: Raz Solis MD [Primary Care Provider] -
[2017-09-23 15:25] LABS: Absolute Lymphocyte Count 1.49 X10^3/ul (0.83-4.51); Absolute Neutrophil Count 3.2 X10^3/uL (2.0-7.7); Basophil# 0.02 X10^3/uL; Basophil% 0.4 % (0-1); Eosinophil# 0.21 X10^3/uL; Hematocrit 31.9 % (37-47); Hemoglobin 10.4 g/dl (12.0-15.0); Lymphocyte # 1.49 X10^3/ul (4.0); Lymphocyte % 28.4 % (19-41); Mean Corp Hgb Conc 32.6 g/gl (32-36); Mean Corpuscular Hgb 30.7 pg (27.0-32.0); Mean Corpuscular Volume 94.1 fL (81-99); Mean Platelet Vol. 9.1 fl (6.2-12.0); Monocyte# 0.34 X10^3/uL; Monocyte% 6.5 % (0-10); Neutrophil # 3.15 X10^3/uL (2.7-7.7); Neutrophil % 60.1 % (47-70); Platelet Count 251 K/mm3 (150-450); RBC Distribution Width CV 13.7 % (11.6-14.6); RBC Distribution Width SD 44.7 fl (35.1-43.9); Red Blood Count 3.39 M/mm3 (4.2-5.4); White Blood Count 5.2 K/mm3 (4.4-11.0)
[2017-09-23 15:31] LABS: POSITIVE COUNT NO; POSITIVE DIFFERENTIAL NO; POSITIVE MORPHOLOGY NO
[2017-09-23 15:44] LABS: AST(SGOT) 30 U/L (15-37); Alanine Aminotransfer ALT/SGPT 36 U/L (13-56); Albumin, Serum 2.4 g/dL (3.2-5.0); Alkaline Phosphatase 117 U/L (45-117); Anion Gap 7 (5-15); BUN 10 mg/dL (7-18); Bilirubin, Direct 0.19 mg/dL (0.00-0.30); Calcium,Total 8.4 mg/dL (8.5-10.1); Chloride 109 mmol/L (98-107); Creatinine, Serum 0.77 mg/dL (0.55-1.02); EST Glomerular Filtration Rate 92 mL/min (>60); Est Glom Filt Rate - Afr Amer 111 mL/min (>60); Estimated Creatinine Clearance 96.37 ml/min; Globulin 4.1 g/dL (2.2-4.2); Glucose 105 mg/dL (74-106); Potassium 3.7 mmol/L (3.5-5.1); Protein, Total 6.5 g/dL (6.4-8.2); Sodium Level 143 mmol/L (136-145)
[2017-09-23 16:08] LABS: BNP,B-Type NATRIURETIC PEPTIDE 203.8 pg/mL (0-100)
--- NOTE | 2017-09-23 16:35 | CT_ITS ---
STUDY: CTA CHEST REASON FOR EXAM: Female, 32 years old. Shortness of breath RADIATION DOSAGE (If Supplied By Facility): CTDIvol = ( 15.62 ) mGy, DLP = ( 642.95 ) mGycm TECHNIQUE: The examination was performed with the intravenous administration of 100 ml of Isovue 370 contrast material. Post-processing of the angiographic images was performed, with multiplanar reformation and 3D reconstruction. Individualized dose optimization techniques were used for this CT. COMPARISON: September 23, 2017 chest radiograph FINDINGS: Pulmonary artery and its major branches demonstrate no evidence for filling defects. Thoracic aorta is within normal limits. No mediastinal adenopathy. No pericardial effusion. Upper abdominal structures demonstrate no discrete mass. No lung consolidation, pleural effusion or pneumothorax noted. The airway is patent Osseous structures demonstrate no acute abnormalities. Small aortic diverticulum. IMPRESSION: No evidence for pulmonary embolus. No evidence for aortic dissection. No lung consolidation or pneumothorax Electronically Signed: Neri Johnson, at 17:38 EDT Tel , Service support , CT/CTA Chest W/WO Contrast
[2017-09-23 17:31] VITALS: BP 118/72; PULSE 55; RESP 24; O2SAT 96
--- NOTE | 2017-09-23 18:08 | ED.DEP ---
ED Disposition - Plan for ED Patient: Disposition: Home or Assisted Living Chief Complaint: Shortness of Breath Instructions: ED Dyspnea Shortness of Breath Prescriptions: Furosemide [Lasix] 40 mg PO DAILY #2 tablet Referrals: Raz Solis MD [Primary Care Provider] - Meg Christensen MD [STAFF PHYSICIAN] -
[2017-09-23] MEDS: Furosemide 20 MG/2 ML VIAL IV (18:17)
[2017-09-23 18:23] VITALS: BP 119/78; PULSE 56; RESP 18; TEMP 37.2
--- NOTE | 2017-09-25 11:14 | CM.ED ---
ED CALLBACK: Follow-up call placed to patient with no answer. Voicemail left with return contact information.
== END 2017-09-23 18:25 | disposition home or self-care (01) ==
PROVIDERS: Emergency Provider Emergency Medicine; Family Provider Family Medicine; PCP Family Medicine
DX: O90.89 Other complications of the puerperium, not elsewhere classified (principal); R06.00 Dyspnea, unspecified
CPT/HCPCS: 71045; 71275; 80048; 80076; 83880; 84484; 85025; 93005; 99284; Q9967; A4216; J1940

== ENCOUNTER 2017-09-24 15:00 | Outpatient (CLI) | payer BC, SELFPAY | END 2017-09-24 15:50 | disposition home or self-care (01) | LOC: WPOUT 15:05 → WP 15:07 | PROVIDERS: Family Provider Family Medicine; PCP Family Medicine; Visit Provider Obstetrics & Gynecology | DX: Z39.1 Encounter for care and examination of lactating mother (principal) | CPT/HCPCS: 96152 ==

== ENCOUNTER 2017-09-28 14:50 | Outpatient (CLI) | payer BC, SELFPAY | END 2017-09-28 15:05 | disposition home or self-care (01) | LOC: WPOUT 14:53 → WP 14:53 | PROVIDERS: Family Provider Family Medicine; PCP Family Medicine; Visit Provider Obstetrics & Gynecology | DX: Z39.1 Encounter for care and examination of lactating mother (principal) | CPT/HCPCS: 96152 ==

== ENCOUNTER → 2017-10-30 15:00 | Outpatient (CLI) | payer BC, SELFPAY ==
[2017-11-05 11:06] LABS: HPV APTIMA, High Risk Negative (Negative)
== END ==
PROVIDERS: Family Provider Family Medicine; PCP Family Medicine; Visit Provider Obstetrics & Gynecology
DX: Z12.4 Encounter for screening for malignant neoplasm of cervix (principal)
CPT/HCPCS: 88175; G0145

== ENCOUNTER → 2019-07-08 15:12 | Outpatient (CLI) | payer BC, SELFPAY ==
[2019-07-08 14:51] VITALS: BMI 32.0
[2019-07-08 15:57] LABS: Estradiol 574.2 pg/mL; Prolactin 15.2 ng/mL
[2019-07-11 12:07] LABS: DHEA Sulfate 61.2 ug/dL (57.3-279.2)
== END ==
LOC: PAVLAB 15:14
PROVIDERS: PCP Family Medicine; Referring Provider Nurse Practitioner Women's Health; Visit Provider Nurse Practitioner Women's Health
DX: N92.6 Irregular menstruation, unspecified (principal)
CPT/HCPCS: 36415; 82627; 82670; 84146; 84402; 82626

== ENCOUNTER 2019-08-22 12:30 | Emergency (ER) | payer BC, SELFPAY ==
[2019-07-08 14:51] VITALS: BMI 32.0
[2019-08-22 12:32] VITALS: BP 138/66; PULSE 118; RESP 16; TEMP 38.8; O2SAT 99; BMI 30.7
[2019-08-22 13:05] LABS: Red Blood Cells-Urine 0 SEEN /hpf (0-5)
--- NOTE | 2019-08-22 13:06 | CT_ITS ---
STUDY: CT ABDOMEN AND PELVIS WITHOUT CONTRAST REASON FOR EXAM: Female, 33 years old. Left flank pain RADIATION DOSAGE (If Supplied By Facility): CTDIvol = ( 16.64 ) mGy, DLP = ( 872.95 ) mGycm TECHNIQUE: Transaxial images were obtained from the dome of the diaphragm to the symphysis pubis without oral contrast, and without intravenous contrast. Sagittal and coronal images were reconstructed. Individualized dose optimization techniques were used for this CT. COMPARISON: None. FINDINGS: Evaluation of the abdominal viscera is limited in the absence of intravenous contrast. The visualized lung bases are clear. The visualized portions of the heart and pericardium are within normal limits. There are no calcified gallstones present. The liver demonstrates an unremarkable unenhanced appearance. The spleen is normal in size. The pancreas demonstrates an unremarkable unenhanced appearance. The adrenal glands are within normal limits. There are no renal or ureteral stones. There is no hydronephrosis. Normal visualized stomach. There is no bowel obstruction or inflammation. The appendix is visualized and appears normal. There is a 3.3 cm cyst in the left adnexa. The aorta is normal in caliber. There is no abdominal or pelvic free air, free fluid, fluid collection or lymphadenopathy. There are no destructive osseous lesions. CT/Abdomen/Pelvis without Cont IMPRESSION: 3.3 cm cyst in the left adnexa. If indicated, further evaluation with ultrasound can be performed. No urinary stones. No hydronephrosis. No bowel obstruction or inflammation. Normal appendix. Electronically Signed: Moo Juarez, at 14:31 EDT Tel , Service support ,
[2019-08-22 13:07] LABS: Color, Urine Yellow (Yellow); Glucose, Dipstick Normal (Normal); Ketone-Dipstick Negative (Negative); Leukocyte Esterase-Dipstick 100 /ul (Negative); Nitrite-Dipstick Negative (Negative); Occult Blood-Urine Negative /ul (Negative); Protein-Dipstick Negative (Negative); Urine Bilirubin Dipstick Negative (Negative); Urine Clarity Sl. Cloudy (Clear); Urine Urobilinogen Normal (Normal)
[2019-08-22 13:09] LABS: Internal QC Validated? YES +Cl - CLEAR BKGD; Pregnancy, Urine Negative Negative
[2019-08-22 13:13] LABS: Bacteria RARE /hpf (None Seen); Mucous, Urine RARE /hpf (<or=2+); Squamous Epithelial Cells - UA 0-5 SEEN /hpf (5-10); White Blood Cells 5-10 SEEN /hpf (0-5)
[2019-08-22] MEDS: Ketorolac 30 MG/ML Syringe IV (13:20)
[2019-08-22] MEDS: Ondansetron 4 MG/2 ML Vial IV (13:20)
[2019-08-22] MEDS: 0.9% Normal Saline 1,000 ML 1000 ML IV (13:22)
[2019-08-22 13:31] LABS: Absolute Lymphocyte Count 0.32 X10^3/uL (0.83-4.51); Absolute Neutrophil Count 5.6 X10^3/uL (2.0-7.7); Basophil# 0.02 X10^3/uL; Basophil% 0.3 % (0-1); Eosinophil# 0.02 X10^3/uL; Eosinophils% 0.3 % (0-5); Hematocrit 39.1 % (37-47); Hemoglobin 12.3 g/dL (12.0-15.0); Lymphocyte # 0.32 X10^3/ul (4.0); Mean Corp Hgb Conc 31.5 g/dL (32-36); Mean Corpuscular Hgb 30.3 pg (27.0-32.0); Mean Corpuscular Volume 96.3 fL (81-99); Mean Platelet Vol. 10.1 fl (6.2-12.0); Monocyte# 0.38 X10^3/uL; Monocyte% 5.9 % (0-10); NRBC Flagged by Analyzer 0 % (0-5); Neutrophil # 5.63 X10^3/uL (2.7-7.7); Neutrophil % 88.2 % (47-70); POSITIVE DIFFERENTIAL YES; Platelet Count 195 K/mm3 (150-450); RBC Distribution Width CV 12.2 % (11.6-14.6); RBC Distribution Width SD 42.7 fl (35.1-43.9); Red Blood Count 4.06 M/mm3 (4.2-5.4); White Blood Count 6.4 K/mm3 (4.4-11.0)
[2019-08-22 13:32] LABS: Differential Indicated SCAN CRITERIA MET
[2019-08-22 13:48] LABS: ALB/GLOB Ratio 0.9 RATIO (0.9-2.4); AST(SGOT) 12 U/L (15-37); Alanine Aminotransfer ALT/SGPT 16 U/L (13-56); Albumin, Serum 3.3 g/dL (3.2-5.0); Alkaline Phosphatase 58 U/L (45-117); Anion Gap 4 (5-15); BUN 14 mg/dL (7-18); BUN/Creat Ratio 16.1 RATIO (10-20); Calcium,Total 8.7 mg/dL (8.5-10.1); Chloride 107 mmol/L (98-107); Creatinine, Serum 0.87 mg/dL (0.55-1.02); EST Glomerular Filtration Rate 78 mL/min (>60); Est Glom Filt Rate - Afr Amer 95 mL/min (>60); Estimated Creatinine Clearance 84.49 ml/min; Globulin 3.7 g/dL (2.2-4.2); Glucose 94 mg/dL (74-106); Potassium 3.9 mmol/L (3.5-5.1); Sodium Level 137 mmol/L (136-145)
[2019-08-22 13:54] LABS: Differential Comment SCANNED
--- NOTE | 2019-08-22 13:55 | ED.DCSUM_ITS ---
History of Present Illness Chief Complaint: Complaint Informant: Patient Narrative: 33-year-old female presents with concern for left back pain. Concerned that she may have kidney stone versus kidney infection. States that she frequently gets these 2 etiologies. States that it began worsening yesterday. States that she has had urinary frequency for 2 days. Denies any fever, chills. Admits to nausea without vomiting. Denies any vaginal bleeding or discharge. Last menstrual period was 3 weeks ago. Past Medical History - Allergies and Home Meds Allergies/Adverse Reactions: Allergies No Known Allergies Allergy (Verified 07/08/19 14:45) Primary Care Physician: Raz Solis MD [Primary Care Provider] - Prior records reviewed: Yes Past Medical History: None Surgical History: - - c section Lives: Spouse/ Significant Other Smoking Status: Never smoker Alcohol: None Drugs: None Review of Systems General: Denies: Chills, Fever, Sweats Eyes: Denies: Visual changes - bilaterally, Diplopia ENT: Denies: Rhinorrhea, Sore throat Cardiovascular: Denies: Chest pain, Palpitations Respiratory: Denies: Dyspnea, Cough, Dyspnea on exertion Gastrointestinal: Reports: Nausea, - - left flank pain. Denies: Abdominal pain, Vomiting, Diarrhea, Melena, Hematochezia Genitourinary: Reports: Frequency. Denies: Dysuria, Hematuria Musculoskeletal: Denies: Back pain, Extremity Pain Skin: Denies: Rash, Wounds Neurological: Denies: Headache, Weakness, Numbness Physical Exam Vital Signs/Narrative: Vital Signs Temp Pulse Resp BP Pulse Ox 08/22/19 12:32 101.8 F H 118 H 16 138/66 H 99 Inital Vital Signs reviewed: Yes General: Well nourished, Well developed, No Acute Distress Head: Normocephalic, Atraumatic Eyes: Perrl, EOMI ENT: Moist mucous membranes, No rhinorrhea Neck: Supple, Nontender Cardiovascular: Regular rate, Regular rhythm, No murmurs Respiratory: No distress, CTA bilaterally, Chest nontender Abdomen: Soft, Nondistended, Normal bowel sounds, - - TTP in the left flank. No rebound or rigidity. Back: Nontender, Normal Inspection Extremities: Nontender, No edema Skin: Normal color, No rash Neurological: Alert, Oriented x3, Cranial nerves II-XII grossly intact, Normal Strength, Normal Sensation Psychological: Normal affect, Normal Mood Diagnostic/Tx/Re-eval Clinical Impression(s) from Imaging Studies Abdomen/Pelvis CT 08/22/19 13:06 IMPRESSION: 3.3 cm cyst in the left adnexa. If indicated, further evaluation with ultrasound can be performed. No urinary stones. No hydronephrosis. No bowel obstruction or inflammation. Normal appendix. Electronically Signed: Moo Juarez, at 14:31 EDT Tel , Service support , Laboratory Data 08/22/19 08/22/19 08/22/19 11:18 13:00 13:00 WBC RBC Hgb Hct MCV MCH MCHC RDW Std Deviation RDW Coeff of Gypsy Plt Count MPV Immature Gran % (Auto) Neut % (Auto) Lymph % (Auto) [place] % (Auto) Eos % (Auto) Baso % (Auto) Absolute Neuts (auto) Absolute Lymphs (auto) Nucleated RBC % Differential Comment Sodium Potassium Chloride Carbon Dioxide Anion Gap BUN Creatinine Estim Creat Clear Calc Est GFR (MDRD) Af Amer Est GFR (MDRD) Non-Af BUN/Creatinine Ratio Glucose Lactic Acid 0.5 Calcium Total Bilirubin AST ALT Alkaline Phosphatase Total Protein Albumin Globulin Albumin/Globulin Ratio Urine Color Yellow Urine Clarity Sl. Cloudy Urine pH 8.0 Ur Specific Ophiem 1.010 Urine Protein Negative Urine Glucose (UA) Normal Urine Ketones Negative Urine Occult Blood Negative Urine Nitrite Negative Urine Bilirubin Negative Urine Urobilinogen Normal Ur Leukocyte Esterase 100 H Urine RBC 0 SEEN Urine WBC 5-10 SEEN Ur Squamous Epith Cells 0-5 SEEN Urine Bacteria RARE Urine Mucus RARE Urine Test Negative 08/22/19 08/22/19 13:15 13:15 WBC 6.4 RBC 4.06 L Hgb 12.3 Hct 39.1 MCV 96.3 MCH 30.3 MCHC 31.5 L RDW Std Deviation 42.7 RDW Coeff of Gypsy 12.2 Plt Count 195 MPV 10.1 Immature Gran % (Auto) 0.300 Neut % (Auto) 88.2 H Lymph % (Auto) 5.[address] [place] % (Auto) 5.9 Eos % (Auto) 0.3 Baso % (Auto) 0.3 Absolute Neuts (auto) 5.6 Absolute Lymphs (auto) 0.32 L Nucleated RBC % 0 Differential Comment SCANNED Sodium 137 Potassium 3.9 Chloride 107 Carbon Dioxide 26.0 Anion Gap 4 L BUN 14 Creatinine 0.87 Estim Creat Clear Calc 84.49 Est GFR (MDRD) Af Amer 95 Est GFR (MDRD) Non-Af 78 BUN/Creatinine Ratio 16.1 Glucose 94 Lactic Acid Calcium 8.7 Total Bilirubin 0.90 AST 12 L ALT 16 Alkaline Phosphatase 58 Total Protein 7.0 Albumin 3.3 Globulin 3.7 Albumin/Globulin Ratio 0.9 Urine Color Urine Clarity Urine pH Ur Specific Ophiem Urine Protein Urine Glucose (UA) Urine Ketones Urine Occult Blood Urine Nitrite Urine Bilirubin Urine Urobilinogen Ur Leukocyte Esterase Urine RBC Urine WBC Ur Squamous Epith Cells Urine Bacteria Urine Mucus Urine Test - Medical Decision Making Arrival patient is febrile and tachycardic. Mild to moderate pain in the left flank. Urine evidence of infection. No nitrites however patient does have bacteria white blood cells and leukocytes. Patient has had increased frequency as well. Patient was given Toradol as well as Tylenol. She is given 1 L normal saline. Patient's tachycardia has improved as well as her fever. CT was done which shows no evidence of ureterolithiasis. Patient does however have a left adnexal cyst. Diamond this at length with the patient as well as her and offered to call an ultrasound to further evaluate the cyst. Patient feels comfortable and following up as an outpatient with her [employer]. Given a single dose of Rocephin in the emergency department. Patient likely has an early pyelonephritis. I did also offer her admission however she feels that antibiot ics at home and returning for creasing pain or uncontrollable fever or vomiting what she would rather do at this time. Given the patient appears nontoxic I feel this is reasonable. She will be given Keflex 4 times daily for the next 7 days. Patient also be given Zofran advised on Motrin and Tylenol for pain. Patient discharged home in stable condition. ED Disposition - Plan for ED Patient[facility] Diagnosis: Pyelonephritis Instructions: ED Pyelonephritis Female Adult Prescriptions: Cephalexin [Keflex] 500 mg PO Q6 #42 cap Transmission Status: Pending to [facility] Ondansetron [Zofran Odt] 4 mg PO Q8H PRN PRN #10 tab PRN Reason: Nausea Transmission Status: Pending to [facility] [facility] Referrals: Raz Solis MD [Primary Care Provider] - Meg Christensen MD [STAFF PHYSICIAN] - (Please follow up for pelvic US of left adnexal cyst. )
[2019-08-22] MEDS: Acetaminophen 500 MG Tablet 1000 MG PO (14:00)
[2019-08-22] MEDS: Ceftriaxone 1 GM/50 ML BAG IV (14:19)
[2019-08-22 14:48] LABS: Lactic Acid 0.5 mmol/L (0.4-1.9)
[2019-08-22 15:15] VITALS: TEMP 37.4
== END 2019-08-22 15:38 | disposition home or self-care (01) ==
PROVIDERS: Emergency Provider Emergency Medicine; PCP Family Medicine
DX: N12 Tubulo-interstitial nephritis, not specified as acute or chronic (principal)
CPT/HCPCS: 74176; 80053; 81001; 81025; 83605; 85025; 96361; 96365; 96375; 99282; J7030; A4216; J2405

== ENCOUNTER → 2019-10-16 15:49 | Outpatient (CLI) | payer BC, SELFPAY ==
[2019-10-16 15:27] VITALS: BMI 30.7
[2019-10-16 17:12] LABS: Hemoglobin A1c 5.1 % (3.8-5.6)
[2019-10-16 17:42] LABS: Estradiol 659.5 pg/mL; Luteinizing Hormone 4.3 mIU/mL; Thyroid Stim Hormone (TSH) 1.63 uIU/mL (0.358-3.74)
[2019-10-22 09:08] LABS: Testosterone, Free 0.13 ng/dL (0.10-0.85); Testosterone, Total 10 ng/dL (8-48)
[2019-10-22 10:40] LABS: DHEA Sulfate 67.6 ug/dL (57.3-279.2)
== END ==
LOC: LAB 15:51
PROVIDERS: PCP Family Medicine; Referring Provider Obstetrics & Gynecology; Visit Provider Obstetrics & Gynecology
DX: N91.2 Amenorrhea, unspecified (principal)
CPT/HCPCS: 36415; 82627; 82670; 83001; 83002; 83036; 84146; 84402; 84403; 84443; 82626

== ENCOUNTER → 2019-10-21 14:15 | Outpatient (CLI) | payer BC, SELFPAY ==
[2019-10-16 15:27] VITALS: BMI 30.7
--- NOTE | 2019-10-21 14:16 | US_ITS ---
PROCEDURE: ULTRASOUND OF THE FEMALE PELVIS - COMPLETE REASON FOR EXAM: Female, 34 years old. No marrow edema or fracture or avascular necrosis is seen in the pelvic bony structures or the hips. The bilateral hip joint spaces are mildly narrowed. No visualized labral tears or detachment. No hip joint effusions. TECHNIQUE: Transabdominal and Transvaginal TECHNICAL QUALITY: Adequate. COMPARISON: CT of abdomen and pelvis dated August 22, 2019. FINDINGS: The uterus is anteverted and is in a midline position. The uterus measures 8.4 x 5.6 x 4.6 cm. There is no demonstrated myometrial mass. The endometrium measures 7 mm in thickness, and is hyperechoic. There is no demonstrated endometrial mass. There is a Nabothian cyst of the cervix. The right ovary is visualized. The right ovary measures 5.3 x 4.2 x 3.6 cm. A simple right ovarian follicular cyst is present measuring 3.4 x 3.0 cm. No vascular flow or suspicious solid components are present. There is no visualized right adnexal mass or complex lesion. The left ovary is non-visualized. There is no left ovarian cyst or ovarian mass. There is no visualized left adnexal mass or complex lesion. Normal color vascular flow and Doppler signal is demonstrated in both ovaries. There is no fluid in the cul-de-sac. US/Transvaginal Non- IMPRESSION: 1. A simple right ovarian follicular cyst is present measuring 3.4 x 3.0 cm. No vascular flow or suspicious solid components are present. No imaging follow-up of this cyst is required, unless clinical symptomatology warrants further assessment. Electronically Signed: Jeffrey Castro MD at 21:36 EDT , Service support ,
--- NOTE | 2019-10-21 14:16 | US_ITS ---
PROCEDURE: ULTRASOUND OF THE FEMALE PELVIS - COMPLETE REASON FOR EXAM: Female, 34 years old. No marrow edema or fracture or avascular necrosis is seen in the pelvic bony structures or the hips. The bilateral hip joint spaces are mildly narrowed. No visualized labral tears or detachment. No hip joint effusions. TECHNIQUE: Transabdominal and Transvaginal TECHNICAL QUALITY: Adequate. COMPARISON: CT of abdomen and pelvis dated August 22, 2019. FINDINGS: The uterus is anteverted and is in a midline position. The uterus measures 8.4 x 5.6 x 4.6 cm. There is no demonstrated myometrial mass. The endometrium measures 7 mm in thickness, and is hyperechoic. There is no demonstrated endometrial mass. There is a Nabothian cyst of the cervix. The right ovary is visualized. The right ovary measures 5.3 x 4.2 x 3.6 cm. A simple right ovarian follicular cyst is present measuring 3.4 x 3.0 cm. No vascular flow or suspicious solid components are present. There is no visualized right adnexal mass or complex lesion. The left ovary is non-visualized. There is no left ovarian cyst or ovarian mass. There is no visualized left adnexal mass or complex lesion. Normal color vascular flow and Doppler signal is demonstrated in both ovaries. There is no fluid in the cul-de-sac. US/Pelvic (Non ) IMPRESSION: 1. A simple right ovarian follicular cyst is present measuring 3.4 x 3.0 cm. No vascular flow or suspicious solid components are present. No imaging follow-up of this cyst is required, unless clinical symptomatology warrants further assessment. Electronically Signed: Jeffrey Castro MD at 21:36 EDT , Service support ,
== END ==
LOC: US 14:16
PROVIDERS: PCP Family Medicine; Referring Provider Obstetrics & Gynecology; Visit Provider Obstetrics & Gynecology
DX: N91.2 Amenorrhea, unspecified (principal)
CPT/HCPCS: 76830; 76856

== ENCOUNTER → 2019-10-28 11:26 | Outpatient (CLI) | payer BC, SELFPAY ==
[2019-10-16 15:27] VITALS: BMI 30.7
[2019-10-28 13:39] LABS: Internal QC Validated? YES +Cl - CLEAR BKGD; Pregnancy, Serum, hCG Quali. NEGATIVE Negative
[2019-10-28 13:48] LABS: Estradiol 332.3 pg/mL; Follicle Stimulating Hormone 3.5 mIU/mL; Luteinizing Hormone 2.8 mIU/mL
== END ==
LOC: LAB 11:28
PROVIDERS: PCP Family Medicine; Referring Provider Obstetrics & Gynecology; Visit Provider Obstetrics & Gynecology
DX: N91.2 Amenorrhea, unspecified (principal)
CPT/HCPCS: 36415; 82670; 83001; 83002; 84703

== ENCOUNTER → 2020-02-05 09:33 | Outpatient (CLI) | payer BC, SELFPAY ==
[2020-02-05 09:05] VITALS: BMI 35.4
== END ==
PROVIDERS: PCP Family Medicine; Referring Provider Obstetrics & Gynecology; Visit Provider Obstetrics & Gynecology
DX: N91.2 Amenorrhea, unspecified (principal)
CPT/HCPCS: 36415; 83516

== ENCOUNTER → 2020-10-04 11:33 | Outpatient (CLI) | payer BC, SELFPAY ==
[2020-09-24 08:10] VITALS: BMI 35.4
[2020-10-04 12:24] LABS: Prolactin 4.9 ng/mL; Thyroid Stim Hormone (TSH) 2.47 uIU/mL (0.358-3.74)
[2020-10-08 10:44] LABS: DHEA Sulfate 68.6 ug/dL (57.3-279.2); Dilute Prothrombin Time (dPT) 35.8 sec (0.0-55.0); Dilute Russell Viper Venom 36.6 sec (0.0-47.0); PTT-LA 34.8 sec (0.0-51.9); Thrombin Time 16.4 sec (0.0-23.0); dPT Confirm Ratio 1.04 Ratio (0.00-1.40)
[2020-10-08 10:54] LABS: Anti-Cardiolipin Ab, IgA, Qn < 9 APL U/mL (0-11); Anti-Cardiolipin Ab, IgG, Qn 27 GPL U/mL (0-14); Anti-Cardiolipin Ab, IgM, Qn 78 MPL U/mL (0-12); Beta-2-Glycoprotein I IgA <9 (0-25); Beta-2-Glycoprotein I IgG <9 (0-20); Beta-2-Glycoprotein I IgM <9 (0-32); Interpretation Comment: (.); Testosterone Free 1.1 pg/mL (0.0-4.2)
== END ==
LOC: PAVLAB 11:35
PROVIDERS: PCP Family Medicine; Referring Provider Obstetrics & Gynecology; Visit Provider Obstetrics & Gynecology
DX: N97.0 Female infertility associated with anovulation (principal); R76.0 Raised antibody titer; N93.9 Abnormal uterine and vaginal bleeding, unspecified; N96 Recurrent pregnancy loss
CPT/HCPCS: 36415; 82627; 84146; 84402; 84443; 86146; 86147; 82626

== ENCOUNTER 2021-04-15 14:09 | Outpatient (CLI) | payer BC, SELFPAY ==
[2021-04-15 16:04] LABS: Progesterone Level 0.32 ng/mL (See Comment)
[2021-04-15 16:16] LABS: hCG Titer Quant., Serum < 1 mIU/mL (1-3)
== END 2021-04-15 23:59 | disposition home or self-care (01) ==
LOC: LAB 14:10
PROVIDERS: PCP Family Medicine; Visit Provider Obstetrics & Gynecology Reproductive Endocrinology
DX: Z32.00 Encounter for pregnancy test, result unknown (principal); N91.1 Secondary amenorrhea
CPT/HCPCS: 36415; 84144; 84702

== ENCOUNTER → 2022-12-05 | Outpatient (CLI) | payer BC, SELFPAY ==
[2022-12-05 12:05] LABS: Absolute Lymphocyte Count 1.23 X10^3/uL (0.83-4.51); Absolute Neutrophil Count 3.2 X10^3/uL (2.0-7.7); Basophil# 0.05 X10^3/uL; Eosinophil# 0.09 X10^3/uL; Eosinophils% 1.9 % (0-5); Hematocrit 40.4 % (37-47); Hemoglobin 13.1 g/dL (12.0-15.0); Lymphocyte # 1.23 X10^3/ul (0.83-4.51); Lymphocyte % 25.4 % (19-41); Mean Corp Hgb Conc 32.4 g/dL (32-36); Mean Corpuscular Hgb 30.4 pg (27.0-32.0); Mean Corpuscular Volume 93.7 fL (81-99); Mean Platelet Vol. 9.7 fl (6.2-12.0); Monocyte# 0.27 X10^3/uL; Monocyte% 5.6 % (0-10); NRBC Flagged by Analyzer 0 % (0-5); Neutrophil % 65.9 % (47-70); Platelet Count 242 K/mm3 (150-450); RBC Distribution Width CV 12.3 % (11.6-14.6); RBC Distribution Width SD 42.3 fl (35.1-43.9); Red Blood Count 4.31 M/mm3 (4.2-5.4); White Blood Count 4.9 K/mm3 (4.4-11.0)
[2022-12-05 14:41] LABS: Estradiol 460.6 pg/mL; Follicle Stimulating Hormone 2.1 mIU/mL; Thyroid Stim Hormone (TSH) 2.79 uIU/mL (0.358-3.74)
[2022-12-08 16:09] LABS: 17-Hydroxyprogesterone 71 ng/dL (.)
[2022-12-09 17:07] LABS: Testosterone, % Free 1.37 % (0.50-2.80); Testosterone, Total 7 ng/dL (8-60)
== END | disposition home or self-care (01) ==
LOC: PAVLAB 11:51
PROVIDERS: PCP Family Medicine; Referring Provider Nurse Practitioner Women's Health; Visit Provider Nurse Practitioner Women's Health
DX: N93.9 Abnormal uterine and vaginal bleeding, unspecified (principal)
CPT/HCPCS: 36415; 82627; 82670; 83001; 83498; 84146; 84402; 84403; 84439; 84443; 85025; 82626

== ENCOUNTER → 2024-08-14 | Outpatient (CLI) | payer BC, SELFPAY ==
[2024-08-14 10:10] LABS: Absolute Lymphocyte Count 1.14 X10^3/uL (0.83-4.51); Absolute Neutrophil Count 2.1 X10^3/uL (2.0-7.7); Basophil# 0.04 X10^3/uL; Basophil% 1.1 % (0-1); Eosinophil# 0.09 X10^3/uL; Eosinophils% 2.5 % (0-5); Hematocrit 39.7 % (37-47); Hemoglobin 13.3 g/dL (12.0-15.0); Lymphocyte # 1.14 X10^3/ul (0.83-4.51); Lymphocyte % 32.1 % (19-41); Mean Corp Hgb Conc 33.5 g/dL (32-36); Mean Corpuscular Hgb 31.5 pg (27.0-32.0); Mean Corpuscular Volume 94.1 fL (81-99); Mean Platelet Vol. 10.1 fl (6.2-12.0); Monocyte# 0.21 X10^3/uL; Monocyte% 5.9 % (0-10); NRBC Flagged by Analyzer 0 % (0-5); Neutrophil # 2.06 X10^3/uL (2.7-7.7); Neutrophil % 58.1 % (47-70); Platelet Count 195 K/mm3 (150-450); RBC Distribution Width SD 41.4 fl (35.1-43.9); Red Blood Count 4.22 M/mm3 (4.2-5.4); White Blood Count 3.6 K/mm3 (4.4-11.0)
[2024-08-14 11:10] LABS: hCG Titer Quant., Serum < 1 mIU/mL (<9 non-preg)
[2024-08-14 11:11] LABS: Hemoglobin A1c 4.6 % (<=5.6)
[2024-08-14 11:13] LABS: ALB/GLOB Ratio 1.6 RATIO (0.9-2.4); AST(SGOT) 18 U/L (<=31); Alanine Aminotransfer ALT/SGPT 9 U/L (<=34); Albumin, Serum 3.9 g/dL (3.5-5.0); Alkaline Phosphatase 55 U/L (35-104); Anion Gap 9 (5-15); BUN 12 mg/dL (4-19); BUN/Creat Ratio 15.3 RATIO (10-20); Calcium,Total 8.9 mg/dL (7.6-11.0); Carbon Dioxide 22.8 mmol/L (21.0-32.0); Chloride 107 mmol/L (98-108); Creatinine, Serum 0.78 mg/dL (0.70-1.20); EST Glomerular Filtration Rate 98 (>60); Follicle Stimulating Hormone 6.1 mIU/mL; Globulin 2.5 g/dL (2.2-4.2); Glucose 84 mg/dL (70-99); Luteinizing Hormone 5.8 mIU/mL; Potassium 4.1 mmol/L (3.3-5.1); Protein, Total 6.3 g/dL (5.9-8.4); Sodium Level 139 mmol/L (133-145); Total Bilirubin 0.71 mg/dL (0.00-1.30); Vitamin D,25 Hydroxy 32.1 ng/mL (30-100)
[2024-08-14 12:22] LABS: CRP 6.09 mg/L (0.0-3.0); Cholesterol 185 mg/dL (<=200); High Density Lipoprotein 54 mg/dL; Low Density Lipoprotein Calc. 117 mg/dL; Triglycerides 73 mg/dL; Very Low Density Lipoprotein 15 mg/dL (5-40); cholesterol:hdl ratio screen 3.43
[2024-08-19 02:07] LABS: 17-Hydroxyprogesterone 23 ng/dL (.); ANTINUCLEAR ANTIBODIES DIRECT Negative (Negative); PROGESTERONE 0.2 ng/mL (.)
[2024-08-19 03:07] LABS: Anti-Mullerian Hormone,Serum 0.628 ng/mL (.); DHEA Sulfate 39.1 ug/dL (57.3-279.2); Insulin Level 4.5 uIU/mL (2.6-24.9); PROLACTIN 8.8 ng/mL (4.8-33.4)
[2024-08-20 04:07] LABS: CRP, High Sensitivity 3.62 mg/L (0.00-3.00)
== END | disposition home or self-care (01) ==
LOC: PAVLAB 09:42
PROVIDERS: PCP Family Medicine
DX: N92.6 Irregular menstruation, unspecified (principal); N97.9 Female infertility, unspecified; D68.61 Antiphospholipid syndrome; E66.3 Overweight; Z68.28 Body mass index [BMI] 28.0-28.9, adult
CPT/HCPCS: 36415; 80053; 80061; 82306; 82627; 82670; 83001; 83002; 83036; 83498; 83516; 83525; 84144; 84146; 84402; 84403; 84439; 84443; 84702; 85025; 86038; 86140; 86141; 86225; 82626

== ENCOUNTER → 2024-09-12 | Outpatient (CLI) | payer BC, SELFPAY ==
[2024-09-12 12:12] LABS: Hematocrit 39.3 % (37-47); Hemoglobin 13.3 g/dL (12.0-15.0); Mean Corp Hgb Conc 33.8 g/dL (32-36); Mean Corpuscular Volume 93.3 fL (81-99); Mean Platelet Vol. 9.9 fl (6.2-12.0); Platelet Count 246 K/mm3 (150-450); RBC Distribution Width CV 12.3 % (11.6-14.6); RBC Distribution Width SD 42.0 fl (35.1-43.9); Red Blood Count 4.21 M/mm3 (4.2-5.4); White Blood Count 4.8 K/mm3 (4.4-11.0)
[2024-09-12 13:35] LABS: CORTISOL AM 8.52 ug/dL (6.02-18.40); Follicle Stimulating Hormone 2.4 mIU/mL
--- OUTSIDE RECORDS SUMMARY | 2024-09-12 19:27 | XMS RPT_ITS | CCD ---
Author Organization [facility] Care Team Providers Care Political Science Instructor Name Role Phone Amparo CASTILLO Meg Joni Unavailable [phone] VILLATORO, MONALISA Unavailable Unavailable MARCANTHONY, MEG E Unavailable Unavailabl e NO PRIMARY CARE, MD Unavailable Unavailable VILLATORO, MONALISA Unavailable Unavailable MARCANTHONY, MEG E Unavailable Unavailabl e NO PRIMARY CARE, MD Unavailable Unavailable VILLATORO, MONALISA Unavailable Unavailable MARCANTHONY, MEG E Unavailable Unavailabl e NO PRIMARY CARE, MD Unavailable Unavailable JANICE LEÓN Unavailable Unavailable MARCANTHONY, MEG E Unavailable Unavailabl e NO PRIMARY CARE, MD Unavailable Unavailable YVETTE, VIRGIE T Unavailable Unavailable YVETTE, VIRGIE T Unavailable Unavailable NO PRIMARY CARE, MD Unavailable Unavailable ALEXIA RUDOLPH J Unavailable Unavailable MARCANTHONY, MEG E Unavailable Unavailabl e NO PRIMARY CARE, MD Unavailable Unavailable VILLATORO, MONALISA Unavailable Unavailable MARCANTHONY, MEG E Unavailable Unavailabl e NO PRIMARY CARE, MD Unavailable Unavailable MARCANTHONY, MEG E Unavailable Unavailabl e NO PRIMARY CARE, MD Unavailable Unavailable KLAUDIA ALEXIA J Unavailable Unavailable YVETTE, VIRGIE T Unavailable Unavailable MARCANTHONY, MEG E Unavailable Unavailabl e NO PRIMARY CARE, MD Unavailable Unavailable AVELINO, SHARMILA Attending Unavailable AVELINO, SHARMILA Admitting Unavailable JACOB CHAMBERS Consulting Unavailable AA NO PCP, NO PCP Primary Care Unavailable Franci Wing APRN.CNP Primary Care Provider [phone] DYLAN MAKE UP MAN-OBIEE CONSULTANTFRANCI Primary Care Physicia n GREER MAKE UP MAN-OBIEE CONSULTANTCECE Attending Unavailab yan WING APRN-FRANCI MERRITT Primary Care Unava ilable Dr. Raz Solis Primary Care Provider Dr. Raz Solis Referring Provider Carlos SEAM STAYER, SEAM STAYERLaithC Sulema Attending Provider Dylan MAKE UP MAN.Franci MERRITT Primary Care Provider Dr. aRz Solis MD Primary Care Provider MAURO PANDEY Attending Provider MAURO PANDEY Referring Provider Raz Solis Primary Care Unavailable JOSE MARIA, 1 Referring Unavailable JOSE MARIA, 1 Attending Unavailable Dylan MAKE UP MAN.Franci MERRITT Primary Care Provider FRANCI WING Primary Care Unavailable FRANCI WING Primary Care Unavailable TOM JORDAN Attending Unavailable Allergies Allergy Classification Reported Allergen(s) Allergy Type Date of Onset Reaction(s) Facility (5 sources) Phentermine; Translations: [PHENTERMINE] Drug Allergy 02-05-2023 Mental Status Change, Rash [facility] Medications Current Medications Medication Drug Class(es) Dates Sig (Normalized) Sig (Original) amoxicillin 875 mg / clavulanate 125 mg oral tablet (1 source) Penicillin-class Antibacterial Start: 12-19-2022 End: 12-26-2022 take 1 tablet by mouth twice daily amoxicillin-clavula pal potassium (AUGMENTIN) 875-125 mg per tablet Indications: Bacterial sinusitis , Other acute nonsuppurative otitis media of both ears, recurrence not specified Take 1 tablet by mouth two times a day for 7 days. 14 tablet 0 12/19/2022 12/26/2022 Active Comment on above: Take 1 tablet by jordyn two times a day for 7 days. 12 hr buPROPion hydrochloride 90 mg / naltrexone hydrochloride 8 mg extended release oral tablet (4 sources) Opioid Antagonist, Aminoketone Start: 02-05-2023 take 2 tablets by mouth once daily naltrexone-bupropio n (CONTRAVE) 8-90 mg ER tablet Take 2 tablets by mouth once daily. 180 tablet 2 02/05/2023 Active diphenhydrAMINE-maa lox-lidocaine (BMX 1:1:1) 1:1:1 liqd (1 source) Start: 01-19-2024 diphenhydrAMINE-maa lox-lidocaine (BMX 1:1:1) 1:1:1 liqd Mix in equal amounts - 1 T every 2hrs as needed for mouth pain, Swish/swallow or expectorate. (8oz) 240 mL 01/19/2024 Active lidocaine hydrochloride 20 mg/ml mucous membrane topical solution (1 source) Antiarrhythmic, Amide Local Anesthetic Start: 01-19-2024 LIDOCAINE VISCOUS 2 % solution Indications: Sore throat Take 15 mL by mouth three times a day as needed. Mix with one tablespoon liquid maalox (OTC) and one tablespoon benadryl liquid (OTC) and swish and swallow or spit out. 100 mL 01/19/2024 Active nitrofurantoin, macrocrystals 25 mg / nitrofurantoin, monohydrate 75 mg oral capsule (2 sources) Nitrofuran Antibacterial Start: 08-13-2022 End: 08-18-2022 take 1 capsule by mouth twice daily nitrofurantoin monohydrate and macrocrystal (MACROBID) 100 mg capsule Indications: Urinary frequency Take 1 capsule by mouth twice daily for 5 days. 10 capsule 0 08/13/2022 08/18/2022 Active Comment on above: Take 1 capsule by [facility] twice daily for 5 days. norethindrone acetate 5 mg oral tablet (2 sources) Start: 12-05-2022 Norethindrone Acetate 5 mg tablet Active 5 mg PO .COMPLEX 45 0 December 05, 2022 12:00am 5 mg PO tid until bleeding stops X 24 hr then bid to finish Rx phentermine hydrochloride 37.5 mg oral tablet (2 sources) Sympathomimetic Amine Anorectic Start: 01-10-2023 End: 02-09-2023 take 1 tablet by mouth once daily Phentermine HCl 37.5 mg tablet Indications: Obesity, Class II, BMI 35-39.9 , Attention deficit disorder (ADD) in adult Take 1 tablet by mouth once daily for 30 days. Before breakfast 30 tablet 0 01/10/2023 02/09/2023 Active Comment on above: Take 1 tablet by [facility] once daily for 30 days. Before breakfast predniSONE 20 mg oral tablet (1 source) Start: 09-06-2012 End: 07-04-2022 predniSONE 20 mg tablet three(3) tablets daily for three(3) days then two(2) tablets daily for two (2) days, then one(1) tablet for one(1) day 14 tablet 0 09/06/2012 07/04/2022 Discontinued Comment on above: three(3) tablets pedrito ly for three(3) days then two(2) tablets daily for two (2) days, then one(1) tablet for one(1) day 25/iron fum/folic/dha (-1 ORAL) (1 source) End: 07-04-2022 25/iron fum/folic/dha (-1 ORAL) Take 1 tablet by mouth. 0 07/04/2022 Discontinued Comment on above: Take 1 tablet by jordyn . triamcinolone acetonide 1 mg/ml topical cream (1 source) Corticosteroid Start: 09-06-2012 End: 07-04-2022 triamcinolone acetonide 0.1 % cream Apply 1 application to affected area twice daily. 1 Tube 0 09/06/2012 07/04/2022 Discontinued Comment on above: Apply 1 application to affected area twice daily. WEGOVY 1.7 mg/0.75 mL pen injector (1 source) Start: 08-07-2024 WEGOVY 1.7 mg/0.75 mL pen injector INJECT ONE PEN OF 1.7MG ONCE WEEKLY SUBCUTANEOUSLY 08/07/2024 Active Completed/Discontinued Medications Medication Drug Class(es) Dates Sig (Normalized) Sig (Original) acetaminophen 325 mg / oxyCODONE hydrochloride 5 mg oral tablet (9 sources) Opioid Agonist Start: 09-21-2017 End: 10-03-2017 Oxycodone-Acetaminoph en 1 TABLET tablet Discontinued 1 - 2 {tbl} PO EVERY 4 HOURS NEEDED as needed for Pain 28 7 0 September 21, 2017 12:00am October 03, 2017 1:25pm Other acute postprocedural pain Start: 09-21-2017 End: 10-03-2017 take 1 tablet by mouth every four hours as needed Oxycodone-Acetaminophen Discontinued 1 - 2 TABLET PO EVERY 4 HOURS NEEDED 28 7 September 21, 2017 7:47am October 03, 2017 1:25pm Start: 07-22-2017 End: 09-13-2017 Oxycodone-Acetaminophen 1 TA BLET tablet Discontinued 2 {tbl} PO EVERY 4 HOURS NEEDED as needed for Moderate-Severe pain 28 7 0 July 22, 2017 12:00am September 13, 2017 9:18am Calculus of kidney affecting related renal disease, unspecified trimester Start: 07-22-2017 End: 09-13-2017 take 2 tablets by mouth every four hours as needed Oxycodone-Acetaminophen Discontinued 2 TABLET PO EVERY 4 HOURS NEEDED 28 7 July 22, 2017 11:01am September 13, 2017 9:18am Start: 10-25-2016 End: 02-07-2017 Oxycodone-Acetaminophen 1 TA BLET tablet Discontinued 1 - 2 {tbl} PO EVERY 4 HOURS NEEDED as needed for Pain October 25, 2016 12:00am February 07, 2017 10:51am Start: 10-25-2016 End: 02-07-2017 take 1 tablet by mouth every four hours as needed Oxycodone-Acetaminophen Discontinued 1 - 2 TABLET PO EVERY 4 HOURS NEEDED October 25, 2016 11:48pm February 07, 2017 10:51am cephalexin 500 mg oral capsule (3 sources) Cephalosporin Antibacterial Start: 08-22-2019 End: 10-16-2019 take 1 capsule by mouth every six hours Cephalexin 500 MG capsule Discontinued 500 mg PO EVERY 6 HOURS 42 0 August 22, 2019 12:00am October 16, 2019 3:19pm ciclopirox 80 mg/ml topical solution (8 sources) Start: 07-04-2022 End: 01-10-2023 Ciclopirox (LOPROX) 8 % solution Indications: Onychomycosis Apply to affected area daily at bedtime. 6.6 mL 1 07/04/2022 01/10/2023 Discontinued Comment on above: Apply to affected ar ea daily at bedtime. citalopram 20 mg oral tablet (3 sources) Serotonin Reuptake Inhibitor Start: 07-25-2018 End: 09-05-2018 take 1 tablet by mouth once daily Citalopram (Celexa) 20 mg tablet Discontinued 20 mg PO DAILY 30 July 25, 2018 12:00am September 05, 2018 3:04pm escitalopram 10 mg oral tablet (3 sources) Serotonin Reuptake Inhibitor Start: 09-05-2018 End: 07-08-2019 take 1 tablet by mouth once daily Escitalopram Oxalate (Lexapro) 10 mg tablet Discontinued 10 mg PO DAILY 30 September 05, 2018 12:00am July 08, 2019 2:45pm furosemide 40 mg oral tablet (3 sources) Loop Diuretic Start: 09-23-2017 End: 10-03-2017 take 1 tablet by mouth once daily Furosemide 40 MG tablet Discontinued 40 mg PO DAILY 2 0 September 23, 2017 12:00am October 03, 2017 1:25pm ibuprofen 200 mg oral tablet (3 sources) Nonsteroidal Anti-inflammatory Drug Start: 10-03-2017 End: 07-25-2018 take 1 tablet by mouth three to four times daily as needed Ibuprofen 200 mg tablet Discontinued 200 mg PO 3 to 4 times per day as needed October 03, 2017 12:00am July 25, 2018 10:30am letrozole 2.5 mg oral tablet (6 sources) Aromatase Inhibitor Start: 11-04-2020 End: 12-05-2022 Letrozole (Femara) 2.5 mg tablet Discontinued 2.5 mg PO DAILY 5 0 November 04, 2020 12:00am December 05, 2022 11:24am one po daily day 3-7 Start: 02-05-2020 End: 09-24-2020 take 1 tablet by mouth once daily Letrozole 2.5 mg tablet Discontinued 2.5 mg PO DAILY 5 0 February 05, 2020 1:00am September 24, 2020 8:09am levonorgestrel 0.692363 mg/hr intrauterine system (4 sources) Progestin, Progestin-containing Intrauterine Device Start: 07-25-2018 End: 09-05-2018 Levonorgestrel (Mirena) 20 mcg/24 hours (5 yrs) 52 mg intrauterine device Discontinued 1 NMA INTRA-UTER ONCE July 25, 2018 12:00am September 05, 2018 2:51pm Start: 07-25-2018 End: 09-05-2018 Levonorgestrel (Mirena) 20 m cg/24 hours (5 yrs) 52 mg intrauterine device Discontinued 1 DEVICE INTRA-UTER ONCE July 25, 2018 10:30am September 05, 2018 2:51pm Start: 10-30-2017 End: 10-30-2017 levonorgestrel 20 mcg/24 taye rs (6 yrs) 52 mg intrauterine device Discontinued 1 INSERT INTRA-UTER ONCE October 30, 2017 4:05pm October 30, 2017 4:55pm lisdexamfetamine dimesylate 20 mg oral capsule (8 sources) Central Nervous System Stimulant Start: 06-06-2022 End: 01-10-2023 take 1 capsule by mouth once daily as needed VYVANSE 20 mg capsule Take 20 mg by mouth once daily as needed. 0 06/06/2022 01/10/2023 Discontinued Comment on above: Take 20 mg by mouth once daily. Take 20 mg by mouth once daily as needed. medroxyPROGESTERone acetate 10 mg oral tablet (12 sources) Progestin Start: 10-30-2019 End: 12-05-2022 Medroxyprogesterone (Provera) 10 mg tablet Discontinued 10 mg PO daily 5 September 24, 2020 12:00am December 05, 2022 11:24am take for five days if neg preg test and no menses after 35-40 days Start: 10-17-2019 End: 10-30-2019 take 1 tablet by mouth once daily Medroxyprogesterone (Provera) 5 mg tablet Discontinued 5 mg PO DAILY 10 October 17, 2019 12:00am October 30, 2019 1:13pm metFORMIN hydrochloride 500 mg oral tablet (3 sources) Biguanide Start: 02-05-2020 End: 09-24-2020 take 1 tablet by mouth twice daily Metformin 500 mg tablet Discontinued 500 mg PO TWICE A DAY 60 February 05, 2020 1:00am September 24, 2020 8:09am 24 hr metoprolol succinate 25 mg extended release oral tablet (6 sources) beta-Adrenergic Nathaly Start: 08-10-2022 End: 01-10-2023 take 1 tablet by mouth every twenty-four hours metoprolol succinate ER (TOPROL XL) 25 mg 24 hr tablet Take 25 mg by mouth. 0 08/10/2022 01/10/2023 Discontinued Comment on above: Take 25 mg by mouth. ondansetron 4 mg disintegrating oral tablet (9 sources) Serotonin-3 Receptor Antagonist Start: 08-22-2019 End: 10-16-2019 take 1 tablet by mouth every eight hours as needed for nausea Ondansetron 4 MG tablet Discontinued 4 mg PO EVERY 8 HOURS NEEDED as needed for Nausea August 22, 2019 12:00am October 16, 2019 3:19pm Start: 03-14-2017 End: 09-13-2017 take 1 tablet by mouth every four hours Ondansetron Hcl (Zofran) 4 mg tablet Discontinued 4 mg PO Q4H 60 July 17, 2017 10:45am September 13, 2017 9:18am perflutren lipid microsphere s 1.3 mL in NaCl (PF) 0.9% 10 mL injection (DEFINITY) (2 sources) Start: 07-04-2022 End: 07-24-2022 perflutren lipid microsphere s 1.3 mL in NaCl (PF) 0.9% 10 mL injection (DEFINITY) Start: 07-04-2022 End: 10-03-2023 perflutren lipid microsphere s 1.3 mL in NaCl (PF) 0.9% 10 mL injection (DEFINITY) promethazine hydrochloride 25 mg oral tablet (6 sources) Phenothiazine Start: 07-22-2017 End: 09-13-2017 Promethazine 25 MG tablet Discontinued 12.5 mg PO EVERY 6 HOURS NEEDED as needed for Nausea 30 July 22, 2017 12:00am September 13, 2017 9:18am Start: 07-22-2017 End: 09-13-2017 take 12.5 mg by mouth every six hours as needed Promethazine Discontinued 12.5 MG PO EVERY 6 HOURS NEEDED July 22, 2017 11:01am September 13, 2017 9:18am Start: 02-23-2017 End: 03-14-2017 take 1 tablet by mouth every six hours as needed for nausea and vomiting Promethazine 12.5 mg tablet Discontinued 12.5 mg PO EVERY 6 HOURS as needed for nausea and vomiting 60 February 23, 2017 1:00am March 14, 2017 12:13pm raNITIdine 150 mg oral tablet (4 sources) Histamine-2 Receptor Antagonist Start: 07-03-2017 End: 10-03-2017 take 1 tablet by mouth twice daily Ranitidine Hcl (Zantac) 150 mg tablet Discontinued 150 mg PO TWICE A DAY 60 July 03, 2017 12:00am October 03, 2017 1:25pm End: 07-04-2022 ranitidine HCl (ZANTAC ORAL) Take by mouth. 0 07/04/2022 Discontinued Comment on above: Take by mouth. 125 ml sodium chloride 9 mg/ml prefilled syringe (2 sources) Start: 07-04-2022 End: 10-03-2023 sodium chloride 0.9 % (flush) 10 mL (BD POSIFLUSH) Problems Active Problems Problem Classification Problem Date Documented Date Episodic/Chronic Cardiac dysrhythmias (2 sources) Palpitations; Translations: [Palpitations] Episodic Coagulation and hemorrhagic disorders (4 sources) Antiphospholipid syndrome; Translations: [Antiphospholipid syndrome] 02-01-2021 Chronic Comment on above: plan lovenox and asa when Coagulation and hemorrhagic disorders (1 source) Easy bruising; Translations: [Spontaneous ecchymoses] 06-22-2023 Episodic Deficiency and other anemia (1 source) Anemia; Translations: [Anemia, unspecified] 06-22-2023 Episodic Disorders usually diagnosed in infancy, childhood, or adolescence (15 sources) Adult attention deficit hyperactivity disorder ; Translations: [Other specified behavioral and emotional disorders with onset usually occurring in childhood and adolescence] Onset: 07-04-2022 Chronic Female infertility (7 sources) Secondary female infertility; Translations: [Female infertility, unspecified] Onset: 11-01-2016 11-01-2016 Chronic Comment on above: plan 3-6 months fema ra, progesterone first cycle to confirm ovulation, then consider HSG at 3 mo or inferility referral, ovarian assessment good supply fair quality Genitourinary symptoms and ill-defined conditions (1 source) Increased frequency of urination; Translations: [Frequency of micturition] Episodic Hemorrhage during ; abruptio placenta; placenta previa (3 sources) Threatened miscarriage; Translations: [Threatened ] 09-18-2017 Episodic Comment on above: rh positive Immunizations and screening for infectious disease (1 source) Viral screening status; Translations: [Encounter for screening for other viral diseases] Episodic Menstrual disorders (2 sources) Irregular periods; Translations: [Irregular menstruation, unspecified] Onset: 08-19-2024 Chronic Mycoses (1 source) Onychomycosis; Translations: [Tinea unguium] Episodic Nonspecific chest pain (1 source) Chest pain; Translations: [Chest pain, unspecified] 09-04-2024 Episodic Nutritional deficiencies (1 source) Vitamin D deficiency; Translations: [Vitamin D deficiency, unspecified] Chronic Other and ill-defined heart disease (1 source) Disorder of left cardiac ventricle; Translations: [Heart disease, unspecified] Chronic Other female genital disorders (4 sources) Abnormal uterine bleeding; Translations: [Abnormal uterine and vaginal bleeding, unspecified] 12-05-2022 Chronic Comment on above: Aygestin; labs. 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 Other upper respiratory infections (1 source) Bacterial sinusitis; Translations: [Chronic sinusitis, unspecified] 12-19-2022 Chronic Other upper respiratory infections (1 source) Sore throat symptom; Translations: [Acute pharyngitis, unspecified] 01-19-2024 Episodic Otitis media and related conditions (2 sources) Acute secretory otitis media; Translations: [Other acute nonsuppurative otitis media, bilateral] 12-19-2022 Episodic Residual codes; unclassified (3 sources) Gestation period, 33 weeks; Translations: [33 weeks gestation of ] 09-18-2017 Episodic Residual codes; unclassified (1 source) Edema, generalized; Translations: [Generalized edema] Episodic Residual codes; unclassified (2 sources) Did not attend; Translations: [No-show for appointment] 12-28-2022 Episodic Syncope (1 source) Near syncope; Translations: [Syncope and collapse] Episodic Urinary tract infections (3 sources) Pyelonephritis; Translations: [Tubulo-interstitial nephritis, not specified as acute or chronic] 08-23-2019 Episodic Past or Other Problems Problem Classification Problem Date Documented Da te Episodic/Chronic Other female genital disorders (3 sources) 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 ; Translations: [Recurrent loss] Onset: 11-01-2016 11-01-2016 Episodic Results Test Name Value Interpretation Reference Range Facility [facility] 09-04-2024 CNOV Office Visit ([facility]) ----- MARIEL HONG ([id number]) 1985 F Date Time Provider Department 09/04/24 5:30 PM TOM JORDAN During your visit today, we recorded the following information about you: Temperature Pulse Respiration Blood pressure 98.6 degrees 69/minute 18/minute 115/82 Weight 80.6 kg Tom Jordan APRN.OBIEE CONSULTANT 09/04/2024 7:44 PM Signed Subjective HPI Nontoxic-appearing 39-year-old female presents urgent care chief complaint shortness of breath chest pain. Patient states was ill earlier this week. Has been afebrile feeling better. Today she had new onset shortness of breath and chest tightness. States pain is worse with ambulation. States walking up stairs to be increasingly short of breath. History of PVCs. Worked up in 2022 by cardiology with no abnormal findings. Past medical history prescription medications allergies reviewed .Patient presents with: Shortness of Breath: Chest tightness, upper back pain x1 day, cough, bodyaches, chills, ST, fever x4 days PAST MEDICAL HISTORY Diagnosis Date NEGATIVE MEDICAL HISTORY PAST SURGICAL HISTORY Procedure Laterality Date DANNH, DIAG AND/OR THERAPEUTIC N/A 12/2021 PAST SURGICAL HISTORY OF ORIF right femur fracture ALLERGIES Phentermine MEDICATIONS WEGOVY 1.7 mg/0.75 mL pen injector INJECT ONE PEN OF 1.7MG ONCE WEEKLY SUBCUTANEOUSLY LIDOCAINE VISCOUS 2 % solution Take 15 mL by mouth three times a day as needed. Mix with one tablespoon liquid maalox (OTC) and one tablespoon benadryl liquid (OTC) and swish and swallow or spit out. (Patient not taking: Reported on 09/04/2024) naltrexone-bupropion (CONTRAVE) 8-90 mg ER tablet Take 2 tablets by mouth once daily. (Patient not taking: Reported on 09/04/2024) FAMILY HISTORY Problem Relation Age of Onset None Mother None Father other (tuberculosis [Other]) Brother Rectal Cancer Maternal Grandmother Breast Cancer Paternal Grandmother Brain Cancer Paternal Grandmother Social History Tobacco Use Smoking status: Never Smokeless tobacco: Never Substance Use Topics Alcohol use: Yes Comment: occasional Drug use: No BP 115/82 Pulse 69 Temp 37 ?C (98.6 ?F) Resp 18 Wt 80.6 kg (177 lb 11.1 oz) LMP 01/16/2024 (Approximate) SpO2 96% BMI 29.12 kg/m? Review of Systems Constitutional: Negative for chills, fever and malaise/fatigue. HENT: Negative for congestion, ear discharge, ear pain, sinus pain and sore throat. Eyes: Negative for blurred vision, pain, discharge and redness. Respiratory: Positive for shortness of breath. Negative for cough, hemoptysis, sputum production, wheezing and stridor. Cardiovascular: Positive for chest pain. Gastrointestinal: Negative for abdominal pain, diarrhea, nausea and vomiting. Musculoskeletal: Negative for myalgias. Skin: Negative for itching and rash. Neurological: Negative for dizziness and headaches. Objective Physical Exam Constitutional: General: She is not in acute distress. Appearance: She is not diaphoretic. HENT: Head: Normocephalic. Jaw: No trismus, tenderness, swelling or pain on movement. Mouth/Throat: Mouth: Mucous membranes are moist. Pharynx: Oropharynx is clear. Uvula midline. No pharyngeal swelling, oropharyngeal exudate, posterior oropharyngeal erythema or uvula swelling. Eyes: Conjunctiva/sclera: Conjunctivae normal. Pupils: Pupils are equal, round, and reactive to light. Cardiovascular: Rate and Rhythm: Normal rate and regular rhythm. Heart sounds: Normal heart sounds. Pulmonary: Effort: Pulmonary effort is normal. No tachypnea, accessory muscle usage or respiratory distress. Breath sounds: Normal breath sounds. No stridor. No wheezing, rhonchi or rales. Abdominal: General: There is no distension. Palpations: Abdomen is soft. Tenderness: There is no abdominal tenderness. There is no guarding or rebound. Musculoskeletal: Cervical back: Normal range of motion and neck supple. No edema, erythema, rigidity or tenderness. No pain with movement. Normal range of motion. Lymphadenopathy: Cervical: No cervical adenopathy. Skin: General: Skin is warm and dry. Neurological: Mental Status: She is alert and oriented to person, place, and time. ASSESSMENT/PLAN: 1. Chest pain, unspecified type - ICD9: 786.50, ICD10: R07.9 Diagnosis chest pain shortness of breath. With pain worse with exertion refer patient to ED for further workup. Verbalized understand agrees with plan of care Tom Jordan APRN.OBIEE CONSULTANT Allergies As of Date: 09/04/2024 Noted Allergy Reaction PHENTERMINE 02/05/2023 1 - Mental Status Change 2 - Rash Comments: Depression and anxiety Date Reviewed: 09/04/2024 Reviewed by: Nelly Christensen MA - Fully Assessed Reason for Visit: Shortness of Breath [227] Cmt: Chest tightness, upper back pain x1 day, cough, bodyaches, chills, ST, fever (more content not included)... Normal [facility] Testosterone, Total / Freeon 08-24-2024 TESTOSTER,FREE 0.17 ng/dL Normal 0.10-0.85 [facility] Comment on above: Order Comment: N Performed By: #### L [id number], L501.9985, L500.4100, L3300.1750, L501.6710, L803.3000, L3100.5450, L501.9520, L506.0400, L3100.5400, L3300.3500, L500.4050, L506.1001, L700.8000, L3300.1500, L801.2600, L3100.9000, L100.0100 #### [facility] [address] [place], [place], [id number] TESTOSTER,TOTAL 7 ng/dL Low 8-60 [facility] Comment on above: Order Comment: N Performed By: #### L 3100.5055, L501.9985, L500.4100, L3300.1750, L501.6710, L803.3000, L3100.5450, L501.9520, L506.0400, L3100.5400, L3300.3500, L500.4050, L506.1001, L700.8000, L3300.1500, L801.2600, L3100.9000, L100.0100 #### [facility] [address] [facility] [place], [place], [id number] (360) TESTOSTERONE,%F 2.48 Normal 0.50-2.80 [facility] Comment on above: Order Comment: N Result Comment: Perf ormed at: [address] [id number] Slat Basket Top Maker: Sabas Nathan PhD, Phone: [phone] Performed at: [address] [id number] Slat Basket Top Maker: De Calvin MD, Phone: [phone] Performed By: #### L 3100.5055, L501.9985, L500.4100, L3300.1750, L501.6710, L803.3000, L3100.5450, L501.9520, L506.0400, L3100.5400, L3300.3500, L500.4050, L506.1001, L700.8000, L3300.1500, L801.2600, L3100.9000, L100.0100 #### [facility] [address] [facility] [place], [place], [id number] CRP, High Sensitivity [id number] on 08-20-2024 CRP, HIGH SENS 3.62 mg/L High 0.00-3.00 [facility] Comment on above: Result Comment: Rela tive Risk for Future Cardiovascular Event Low <1.00 Average 1.00 - 3.00 High >3.00 Performed at: [address] [id number] Slat Basket Top Maker: Sabas Nathan PhD, Phone: [phone] Performed By: #### L 3100.5055, L501.9985, L500.4100, L3300.1750, L501.6710, L803.3000, L3100.5450, L501.9520, L506.0400, L3100.5400, L3300.3500, L500.4050, L506.1001, L700.8000, L3300.1500, L801.2600, L3100.9000, L100.0100 #### [facility] [address] [facility] [place], [place], [id number] 17-Hydroxyprogesteroneon 17ALPHA [place]-PROG 23 ng/dL Normal . [facility] Comment on above: Order Comment: Test( s) 073534-13-DH Progesterone LCMSwas developed and its performance characteristicsdetermined by [employer]. It has not been cleared or approvedby the Food and Drug Administration.N Result Comment: Adul t Female Follicular 15 - 70 Luteal 35 - 290 Performed By: #### L 3100.5055, L501.9985, L500.4100, L3300.1750, L501.6710, L803.3000, L3100.5450, L501.9520, L506.0400, L3100.5400, L3300.3500, L500.4050, L506.1001, L700.8000, L3300.1500, L801.2600, L3100.9000, L100.0100 #### [facility] [address] [facility] [place], [address] LASHONDA w/ Reflex Mult Confirmon 08-19-2024 ANTI-DNA (DS)AB TNP Normal [facility] Comment on above: Order Comment: Test( s) 779419-92-AJ Progesterone LCMS was developed and its performance characteristics determined by [employer]. It has not been cleared or approved by the Food and Drug Administration. Performed By: #### L 3100.5055, L501.9985, L500.4100, L3300.1750, L501.6710, L803.3000, L3100.5450, L501.9520, L506.0400, L3100.5400, L3300.3500, L500.4050, L506.1001, L700.8000, L3300.1500, L801.2600, L3100.9000, L100.0100 #### [facility] [address] [facility] [place], [address] ANTI-SS-A TNP Normal [facility] Comment on above: Order Comment: Test( s) 487473-19-EO Progesterone LCMS was developed and its performance characteristics determined by [facility]. It has not been cleared or approved by the Food and Drug Administration. Performed By: #### L 3100.5055, L501.9985, L500.4100, L3300.1750, L501.6710, L803.3000, L3100.5450, L501.9520, L506.0400, L3100.5400, L3300.3500, L500.4050, L506.1001, L700.8000, L3300.1500, L801.2600, L3100.9000, L100.0100 #### [facility] [address] [facility] [place], [address] ANTI-SS-B TNP Normal [facility] Comment on above: Order Comment: Test( s) 808423-04-IB Progesterone LCMS was developed and its performance characteristics determined by [facility]. It has not been cleared or approved by the Food and Drug Administration. Performed By: #### L 3100.5055, L501.9985, L500.4100, L3300.1750, L501.6710, L803.3000, L3100.5450, L501.9520, L506.0400, L3100.5400, L3300.3500, L500.4050, L506.1001, L700.8000, L3300.1500, L801.2600, L3100.9000, L100.0100 #### [facility] [address] [facility] [place], [address] Antimullerian Hormone, Serum on 08-19-2024 AMH, SERUM 0.628 ng/mL Normal . [facility] Comment on above: Order Comment: CAROLINA Quinones ADD TEST T/F TO THG3 3 O Result Comment: For assays employing antibodies, the possibility exists for interference by heterophile antibodies in the samples.1 1.Rasta Aguirre Interferences in Immunoassays - still a threat. Clin. Chem. 2000; 46: 3011-7939. This test was developed and its performance characteristics determined by [employer]. It has not been cleared or approved by the Food and Drug Administration. Reference Range: Females 36 - 40y: 0.42 - 8.34 Median 1.69 AMH concentrations of >= 1.06 ng/mL is correlated with a better response to ovarian stimulation, produced more retrievable oocytes and higher odds of live according to Brooklyner et al. Fertility and Sterility. 2010: 94:6568-5190. The current AMH test method correlates with the study method with a slope of 0.94. Females at risk of ovarian hyperstimulation syndrome or polycystic ovarian syndrome (PCOS) may exhibit elevated serum AMH concentrations. AMH levels from PCOS patients may be 2 to 5 fold higher than age-appropriate reference interval values. Granulosa cell tumors of the ovary may secrete AMH along with other tumor markers. Elevated AMH is not specific for malignancy, and the assay should not be used exclusively to diagnose or exclude an AMH-secreting ovarian tumor. Performed By: #### L 3100.5055, L501.9985, L500.4100, L3300.1750, L501.6710, L803.3000, L3100.5450, L501.9520, L506.0400, L3100.5400, L3300.3500, L500.4050, L506.1001, L700.8000, L3300.1500, L801.2600, L3100.9000, L100.0100 #### [facility] [address] [place], [place], [address] DHEA Sulfateon 08-19-2024 DHEA SULFATE 39.1 ug/dL Low 57.3-279.2 [facility] Comment on above: Order Comment: CAROLINA Quinones ADD TEST T/F TO THG3 3 ON Performed By: #### L 3100.5055, L501.9985, L500.4100, L3300.1750, L501.6710, L803.3000, L3100.5450, L501.9520, L506.0400, L3100.5400, L3300.3500, L500.4050, L506.1001, L700.8000, L3300.1500, L801.2600, L3100.9000, L100.0100 #### [facility] [address] [place], [place], [id number] Insulin Levelon 08-19-2024 INSULIN,FASTING 4.5 uIU/mL Normal 2.6-24.9 [facility] Comment on above: Order Comment: CAROLINA Quinones ADD TEST T/F TO THG3 3 O Performed By: #### L 3100.5055, L501.9985, L500.4100, L3300.1750, L501.6710, L803.3000, L3100.5450, L501.9520, L506.0400, L3100.5400, L3300.3500, L500.4050, L506.1001, L700.8000, L3300.1500, L801.2600, L3100.9000, L100.0100 #### [facility] [address] [place], [place], [id number] PROGESTERONE 4317on 08-20-19 25 PROGESTERONE 0.2 ng/mL Normal . [facility] Comment on above: Order Comment: Test( s) [id number]-[id number] Progesterone LCMSwas developed and its performance characteristicsdetermined by [employer]. It has not been cleared or approvedby the Food and Drug Administration.[id number] Result Comment: Foll icular phase 0.1 - 0.9 Luteal phase 1.8 - 23.9 Ovulation phase 0.1 - 12.0 First trimester 11.0 - 44.3 Second trimester 25.4 - 83.3 Third trimester 58.7 - 214.0 Postmenopausal 0.0 - 0.1 Performed at: [address] [id number] Slat Basket Top Maker: De Calvin MD, Phone: [phone] Performed at: [facility] [address] [id number] Slat Basket Top Maker: Sabas Nathan PhD, Phone: [phone] Performed By: #### L 3100.5055, L501.9985, L500.4100, L3300.1750, L501.6710, L803.3000, L3100.5450, L501.9520, L506.0400, L3100.5400, L3300.3500, L500.4050, L506.1001, L700.8000, L3300.1500, L801.2600, L3100.9000, L100.0100 #### [facility] [address] [facility] [place], [address] PROLACTIN 4465on 08-19-2024 PROLACTIN 8.8 ng/mL Normal 4.8-33.4 [facility] Comment on above: Order Comment: PLESA E ADD TEST T/F TO THG3 3 O Performed By: #### L 3100.5055, L501.9985, L500.4100, L3300.1750, L501.6710, L803.3000, L3100.5450, L501.9520, L506.0400, L3100.5400, L3300.3500, L500.4050, L506.1001, L700.8000, L3300.1500, L801.2600, L3100.9000, L100.0100 #### [facility] [address] [facility] [place], [place], [id number] Absolute lymphocyte counton 08-14-2024 Lymphocytes Auto (Unsp spec) [#/Vol] 1.14 10*3/uL 0.83-4.51 [facility] Absolute neutrophil counton 08-14-2024 Neutrophils (Bld) [#/Vol] 2.1 10*3/uL 2.0-7.7 [facility] Anion gap in Serum or Plasma on 08-14-2024 Anion gap [Moles/Vol] 9 mmol/L 5-15 [facility] Automated lymphocyte count a s percentage of total leukocyteson 08-14-2024 Lymphocytes/100 WBC Auto (Unsp spec) 32.1 % - [facility] BUN/creatinine ratioon 08-14 Urea nitrogen/Creatinine [Mass ratio] 15.3 mg/mg 10- [facility] Basophil percentageon 2024 Basophils/100 WBC (Bld) 1.1 % High 0-1 [facility] Bilirubin, totalon Bilirubin [Mass/Vol] 0.71 mg/dL 0.00-1.30 [facility] CBC W/Diff, Automatedon 07-21 Absolute Lymph 1.14 X10 3/uL Normal 0.83-4.51 [facility] Comment on above: Performed By: #### L 3100.5055, L501.9985, L500.4100, L3300.1750, L501.6710, L803.3000, L3100.5450, L501.9520, L506.0400, L3100.5400, L3300.3500, L500.4050, L506.1001, L700.8000, L3300.1500, L801.2600, L3100.9000, L100.0100 #### [facility] [address] [place], [address] (355 Absolute Neut 2.1 X10 3/uL Normal 2.0-7.7 [facility] Comment on above: Performed By: #### L 3100.5055, L501.9985, L500.4100, L3300.1750, L501.6710, L803.3000, L3100.5450, L501.9520, L506.0400, L3100.5400, L3300.3500, L500.4050, L506.1001, L700.8000, L3300.1500, L801.2600, L3100.9000, L100.0100 #### [facility] [address] [place], [address] Basophils/100 WBC (Bld) 1.1 % High 0-1 [facility] Comment on above: Performed By: #### L 3100.5055, L501.9985, L500.4100, L3300.1750, L501.6710, L803.3000, L3100.5450, L501.9520, L506.0400, L3100.5400, L3300.3500, L500.4050, L506.1001, L700.8000, L3300.1500, L801.2600, L3100.9000, L100.0100 #### [facility] [address] [place], [place], [id number] (146) Eosinophils/100 WBC (Bld) 2.5 % Normal 0-5 [facility] Comment on above: Performed By: #### L 3100.5055, L501.9985, L500.4100, L3300.1750, L501.6710, L803.3000, L3100.5450, L501.9520, L506.0400, L3100.5400, L3300.3500, L500.4050, L506.1001, L700.8000, L3300.1500, L801.2600, L3100.9000, L100.0100 #### [facility] [address] [place], [address] Erythrocyte distribution width (RBC) [Ratio] 12.0 % Normal 11.6-14.6 [facility] Comment on above: Performed By: #### L 3100.5055, L501.9985, L500.4100, L3300.1750, L501.6710, L803.3000, L3100.5450, L501.9520, L506.0400, L3100.5400, L3300.3500, L500.4050, L506.1001, L700.8000, L3300.1500, L801.2600, L3100.9000, L100.0100 #### [facility] [address] [place], [place], [id number] Hematocrit (Bld) [Volume fraction] 39.7 % Normal 37-47 [facility] Comment on above: Performed By: #### L 3100.5055, L501.9985, L500.4100, L3300.1750, L501.6710, L803.3000, L3100.5450, L501.9520, L506.0400, L3100.5400, L3300.3500, L500.4050, L506.1001, L700.8000, L3300.1500, L801.2600, L3100.9000, L100.0100 #### [facility] [address] [place], [address] Hemoglobin (Bld) [Mass/Vol] 13.3 g/dL Normal 12.0-15.0 [facility] Comment on above: Performed By: #### L 3100.5055, L501.9985, L500.4100, L3300.1750, L501.6710, L803.3000, L3100.5450, L501.9520, L506.0400, L3100.5400, L3300.3500, L500.4050, L506.1001, L700.8000, L3300.1500, L801.2600, L3100.9000, L100.0100 #### [facility] [address] [place], [address] IG% 0.300 Normal 0.0-0.9 [facility] Comment on above: Result Comment: IG% - Immature Granulocytes (promyelocytes, myelocytes and metamyelocytes) > 1% indicates that a LEFT SHIFT is Present. Performed By: #### L 3100.5055, L501.9985, L500.4100, L3300.1750, L501.6710, L803.3000, L3100.5450, L501.9520, L506.0400, L3100.5400, L3300.3500, L500.4050, L506.1001, L700.8000, L3300.1500, L801.2600, L3100.9000, L100.0100 #### [facility] [address] [facility] [place], [address] Lymphocytes/100 WBC (Bld) 32.1 % Normal 19-41 [facility] Comment on above: Performed By: #### L 3100.5055, L501.9985, L500.4100, L3300.1750, L501.6710, L803.3000, L3100.5450, L501.9520, L506.0400, L3100.5400, L3300.3500, L500.4050, L506.1001, L700.8000, L3300.1500, L801.2600, L3100.9000, L100.0100 #### [facility] [address] [place], [address] MCH (RBC) [Entitic mass] 31.5 pg Normal 27.0-32.0 [facility] Comment on above: Performed By: #### L 3100.5055, L501.9985, L500.4100, L3300.1750, L501.6710, L803.3000, L3100.5450, L501.9520, L506.0400, L3100.5400, L3300.3500, L500.4050, L506.1001, L700.8000, L3300.1500, L801.2600, L3100.9000, L100.0100 #### [facility] [address] [facility] [place], [address] MCHC (RBC) [Mass/Vol] 33.5 g/dL Normal 32-36 [facility] Comment on above: Performed By: #### L 3100.5055, L501.9985, L500.4100, L3300.1750, L501.6710, L803.3000, L3100.5450, L501.9520, L506.0400, L3100.5400, L3300.3500, L500.4050, L506.1001, L700.8000, L3300.1500, L801.2600, L3100.9000, L100.0100 #### [facility] [address] [facility] [place], [address] MCV (RBC) [Entitic vol] 94.1 fL Normal 81-99 [facility] Comment on above: Performed By: #### L 3100.5055, L501.9985, L500.4100, L3300.1750, L501.6710, L803.3000, L3100.5450, L501.9520, L506.0400, L3100.5400, L3300.3500, L500.4050, L506.1001, L700.8000, L3300.1500, L801.2600, L3100.9000, L100.0100 #### [facility] [address] [facility] [place], [address] Monocytes/100 WBC (Bld) 5.9 % Normal 0-10 [facility] Comment on above: Performed By: #### L 3100.5055, L501.9985, L500.4100, L3300.1750, L501.6710, L803.3000, L3100.5450, L501.9520, L506.0400, L3100.5400, L3300.3500, L500.4050, L506.1001, L700.8000, L3300.1500, L801.2600, L3100.9000, L100.0100 #### [facility] [address] [facility] [place], [address] Neutrophils/100 WBC (Bld) 58.1 % Normal 47-70 [facility] Comment on above: Performed By: #### L 3100.5055, L501.9985, L500.4100, L3300.1750, L501.6710, L803.3000, L3100.5450, L501.9520, L506.0400, L3100.5400, L3300.3500, L500.4050, L506.1001, L700.8000, L3300.1500, L801.2600, L3100.9000, L100.0100 #### [facility] [address] [facility] [place], [place], [id number] (756) Nucleated RBC (Bld) [#/Vol] 0 10*3/uL Normal 0-5 [facility] Comment on above: Performed By: #### L 3100.5055, L501.9985, L500.4100, L3300.1750, L501.6710, L803.3000, L3100.5450, L501.9520, L506.0400, L3100.5400, L3300.3500, L500.4050, L506.1001, L700.8000, L3300.1500, L801.2600, L3100.9000, L100.0100 #### [facility] [address] [place], [address] Platelet mean volume (Bld) [Entitic vol] 10.1 fL Normal 6.2-12.0 [facility] Comment on above: Performed By: #### L 3100.5055, L501.9985, L500.4100, L3300.1750, L501.6710, L803.3000, L3100.5450, L501.9520, L506.0400, L3100.5400, L3300.3500, L500.4050, L506.1001, L700.8000, L3300.1500, L801.2600, L3100.9000, L100.0100 #### [facility] [address] [facility] [place], [address] Platelets (Bld) [#/Vol] 195 10*3/uL Normal 150-450 [facility] Comment on above: Performed By: #### L 3100.5055, L501.9985, L500.4100, L3300.1750, L501.6710, L803.3000, L3100.5450, L501.9520, L506.0400, L3100.5400, L3300.3500, L500.4050, L506.1001, L700.8000, L3300.1500, L801.2600, L3100.9000, L100.0100 #### [facility] [address] [place], [address] (062) RBC (Bld) [#/Vol] 4.22 10*6/uL Normal 4.2-5.4 [facility] Comment on above: Performed By: #### L 3100.5055, L501.9985, L500.4100, L3300.1750, L501.6710, L803.3000, L3100.5450, L501.9520, L506.0400, L3100.5400, L3300.3500, L500.4050, L506.1001, L700.8000, L3300.1500, L801.2600, L3100.9000, L100.0100 #### [facility] [address] [facility] [place], [address] (250) RDW SD 41.4 fl Normal 35.1-43.9 [facility] Comment on above: Performed By: #### L 3100.5055, L501.9985, L500.4100, L3300.1750, L501.6710, L803.3000, L3100.5450, L501.9520, L506.0400, L3100.5400, L3300.3500, L500.4050, L506.1001, L700.8000, L3300.1500, L801.2600, L3100.9000, L100.0100 #### [facility] [address] [facility] [facility] [address] [place], [place], [id number] (243) WBC (Bld) [#/Vol] 3.6 10*3/uL Low 4.4-11.0 [facility] Comment on above: Performed By: #### L 3100.5055, L501.9985, L500.4100, L3300.1750, L501.6710, L803.3000, L3100.5450, L501.9520, L506.0400, L3100.5400, L3300.3500, L500.4050, L506.1001, L700.8000, L3300.1500, L801.2600, L3100.9000, L100.0100 #### [facility] [address] [facility] [place], [address] CRPon 08-14-2024 C-REACTIVE PROT 6.09 mg/L High 0.0-3.0 [facility] Comment on above: Performed By: #### L 3100.5055, L501.9985, L500.4100, L3300.1750, L501.6710, L803.3000, L3100.5450, L501.9520, L506.0400, L3100.5400, L3300.3500, L500.4050, L506.1001, L700.8000, L3300.1500, L801.2600, L3100.9000, L100.0100 #### [facility] [address] [facility] [place], [place], [id number] Calculated very low density lipoprotein (VLDL) cholesterol measurementon 08-14-2024 Calculated very low density lipoprotein (VLDL) cholesterol measurement 15 mg/dL 5-40 [facility] Carbon dioxide, total [Moles /volume] in Central venous bloodon 08-14-2024 CO2 [Moles/Vol] 22.8 mmol/L 21.0-32.0 [facility] Chloride assayon 08-14-2024 Chloride [Moles/Vol] 107 mmol/L 98-108 [facility] Comprehensive Metabolic Prof ilon 08-14-2024 Albumin [Mass/Vol] 3.9 g/dL Normal 3.5-5.0 [facility] Comment on above: Performed By: #### L 3100.5055, L501.9985, L500.4100, L3300.1750, L501.6710, L803.3000, L3100.5450, L501.9520, L506.0400, L3100.5400, L3300.3500, L500.4050, L506.1001, L700.8000, L3300.1500, L801.2600, L3100.9000, L100.0100 #### [facility] [address] [place], [place], [phone] (727) Albumin/Globulin [Mass ratio] 1.6 {ratio} Normal 0.9-2.4 [facility] Comment on above: Performed By: #### L 3100.5055, L501.9985, L500.4100, L3300.1750, L501.6710, L803.3000, L3100.5450, L501.9520, L506.0400, L3100.5400, L3300.3500, L500.4050, L506.1001, L700.8000, L3300.1500, L801.2600, L3100.9000, L100.0100 #### [facility] [address] [facility] [place], [address] ALK PHOS 55 U/L Normal 35-104 [facility] Comment on above: Performed By: #### L 3100.5055, L501.9985, L500.4100, L3300.1750, L501.6710, L803.3000, L3100.5450, L501.9520, L506.0400, L3100.5400, L3300.3500, L500.4050, L506.1001, L700.8000, L3300.1500, L801.2600, L3100.9000, L100.0100 #### [facility] [address] [facility] [place], [place], [id number] (797) ALT [Catalytic activity/Vol] 9 U/L Normal <=34 [facility] Comment on above: Performed By: #### L 3100.5055, L501.9985, L500.4100, L3300.1750, L501.6710, L803.3000, L3100.5450, L501.9520, L506.0400, L3100.5400, L3300.3500, L500.4050, L506.1001, L700.8000, L3300.1500, L801.2600, L3100.9000, L100.0100 #### [facility] [address] [place], [place], [id number] AST [Catalytic activity/Vol] 18 U/L Normal <=31 [facility] Comment on above: Performed By: #### L 3100.5055, L501.9985, L500.4100, L3300.1750, L501.6710, L803.3000, L3100.5450, L501.9520, L506.0400, L3100.5400, L3300.3500, L500.4050, L506.1001, L700.8000, L3300.1500, L801.2600, L3100.9000, L100.0100 #### [facility] [address] [place], [address] Bilirubin [Mass/Vol] 0.71 mg/dL Normal 0.00-1.30 [facility] Comment on above: Performed By: #### L 3100.5055, L501.9985, L500.4100, L3300.1750, L501.6710, L803.3000, L3100.5450, L501.9520, L506.0400, L3100.5400, L3300.3500, L500.4050, L506.1001, L700.8000, L3300.1500, L801.2600, L3100.9000, L100.0100 #### [facility] [address] [place], [address] BUN/CRE 15.3 RATIO Normal 10-20 [facility] Comment on above: Performed By: #### L 3100.5055, L501.9985, L500.4100, L3300.1750, L501.6710, L803.3000, L3100.5450, L501.9520, L506.0400, L3100.5400, L3300.3500, L500.4050, L506.1001, L700.8000, L3300.1500, L801.2600, L3100.9000, L100.0100 #### [facility] [address] [facility] [address] [place], [place], [phone] (792) Calcium [Mass/Vol] 8.9 mg/dL Normal 7.6-11.0 [facility] Comment on above: Performed By: #### L 3100.5055, L501.9985, L500.4100, L3300.1750, L501.6710, L803.3000, L3100.5450, L501.9520, L506.0400, L3100.5400, L3300.3500, L500.4050, L506.1001, L700.8000, L3300.1500, L801.2600, L3100.9000, L100.0100 #### [facility] [address] [place], [address] Chloride [Moles/Vol] 107 mmol/L Normal 98-108 [facility] Comment on above: Performed By: #### L 3100.5055, L501.9985, L500.4100, L3300.1750, L501.6710, L803.3000, L3100.5450, L501.9520, L506.0400, L3100.5400, L3300.3500, L500.4050, L506.1001, L700.8000, L3300.1500, L801.2600, L3100.9000, L100.0100 #### [facility] [address] [place], [address] CO2 [Moles/Vol] 22.8 mmol/L Normal 21.0-32.0 [facility] Comment on above: Performed By: #### L 3100.5055, L501.9985, L500.4100, L3300.1750, L501.6710, L803.3000, L3100.5450, L501.9520, L506.0400, L3100.5400, L3300.3500, L500.4050, L506.1001, L700.8000, L3300.1500, L801.2600, L3100.9000, L100.0100 #### [facility] [address] [place], [address] Creatinine [Mass/Vol] 0.78 mg/dL Normal 0.70-1.20 [facility] Comment on above: Performed By: #### L 3100.5055, L501.9985, L500.4100, L3300.1750, L501.6710, L803.3000, L3100.5450, L501.9520, L506.0400, L3100.5400, L3300.3500, L500.4050, L506.1001, L700.8000, L3300.1500, L801.2600, L3100.9000, L100.0100 #### [facility] [address] [place], [address] GAP 9 Normal 5-15 [facility] Comment on above: Performed By: #### L 3100.5055, L501.9985, L500.4100, L3300.1750, L501.6710, L803.3000, L3100.5450, L501.9520, L506.0400, L3100.5400, L3300.3500, L500.4050, L506.1001, L700.8000, L3300.1500, L801.2600, L3100.9000, L100.0100 #### [facility] [address] [place], [address] GFR/1.73 sq M.predicted among non-blacks MDRD (S/P/Bld) [Vol rate/Area] 98 mL/min/{1.73_m2} Normal >60 [facility] Comment on above: Result Comment: mL/m in/1.73m2 CKD-EPI Creatinine Equation (2020) Performed By: #### L 3100.5055, L501.9985, L500.4100, L3300.1750, L501.6710, L803.3000, L3100.5450, L501.9520, L506.0400, L3100.5400, L3300.3500, L500.4050, L506.1001, L700.8000, L3300.1500, L801.2600, L3100.9000, L100.0100 #### [facility] [address] [place], [address] (104) Globulin (S) [Mass/Vol] 2.5 g/dL Normal 2.2-4.2 [facility] Comment on above: Performed By: #### L 3100.5055, L501.9985, L500.4100, L3300.1750, L501.6710, L803.3000, L3100.5450, L501.9520, L506.0400, L3100.5400, L3300.3500, L500.4050, L506.1001, L700.8000, L3300.1500, L801.2600, L3100.9000, L100.0100 #### [facility] [address] [facility] [place], [place], [id number] Glucose [Mass/Vol] 84 mg/dL Normal 70-99 [facility] Comment on above: Performed By: #### L 3100.5055, L501.9985, L500.4100, L3300.1750, L501.6710, L803.3000, L3100.5450, L501.9520, L506.0400, L3100.5400, L3300.3500, L500.4050, L506.1001, L700.8000, L3300.1500, L801.2600, L3100.9000, L100.0100 #### [facility] [address] [place], [address] Potassium [Moles/Vol] 4.1 mmol/L Normal 3.3-5.1 [facility] Comment on above: Performed By: #### L 3100.5055, L501.9985, L500.4100, L3300.1750, L501.6710, L803.3000, L3100.5450, L501.9520, L506.0400, L3100.5400, L3300.3500, L500.4050, L506.1001, L700.8000, L3300.1500, L801.2600, L3100.9000, L100.0100 #### [facility] [address] [place], [place], [id number] (649) Sodium [Moles/Vol] 139 mmol/L Normal 133-145 [facility] Comment on above: Performed By: #### L 3100.5055, L501.9985, L500.4100, L3300.1750, L501.6710, L803.3000, L3100.5450, L501.9520, L506.0400, L3100.5400, L3300.3500, L500.4050, L506.1001, L700.8000, L3300.1500, L801.2600, L3100.9000, L100.0100 #### [facility] [address] [place], [place], [phone] (393) T PROT 6.3 g/dL Normal 5.9-8.4 [facility] Comment on above: Performed By: #### L 3100.5055, L501.9985, L500.4100, L3300.1750, L501.6710, L803.3000, L3100.5450, L501.9520, L506.0400, L3100.5400, L3300.3500, L500.4050, L506.1001, L700.8000, L3300.1500, L801.2600, L3100.9000, L100.0100 #### [facility] [address] [place], [place], [phone] Urea nitrogen [Mass/Vol] 12 mg/dL Normal 4-19 [facility] Comment on above: Performed By: #### L 3100.5055, L501.9985, L500.4100, L3300.1750, L501.6710, L803.3000, L3100.5450, L501.9520, L506.0400, L3100.5400, L3300.3500, L500.4050, L506.1001, L700.8000, L3300.1500, L801.2600, L3100.9000, L100.0100 #### [facility] [address] [facility] [address] [place], [place], [id number] Eosinophil percentageon 06- Eosinophils/100 WBC (Bld) 2.5 % 0-5 [facility] Erythrocyte distribution wid th ratioon 08-14-2024 Erythrocyte distribution width (RBC) [Ratio] 12.0 % 11.6-14.6 [facility] Erythrocyte distribution wid th standard deviationon 08-14-2024 Erythrocyte distribution width (RBC) [Ratio] 41.4 fl 35.1-43.9 [facility] Estradiolon 08-14-2024 ESTRADIOL 125.0 pg/mL Normal [facility] Comment on above: Result Comment: FEMA LES ADULT FEMALE: Premenopausal: 15-350 pg/mL(E2 levels vary widely through the menstrual cycle) Postmenopausal: <10 pg/mL JUSTUS STAGES MEAN AGE REFERENCE RANGES Stage I(>14 days and prepubertal) 7.1 years Undetectable-20 pg/mLL Stage II 10.5 years Undetectable-24 pg/mL Stage III 11.6 years Undetectable-60 pg/mL Stage IV 12.3 years 15-85 pg/mL Stage V 14.5 years 15-350 pg/mL Puberty onset (transition from Justus stage I to Justus stage II) occurs for girls at a median age of 10.5 (/- 2) years. There is evidence that it may occur up to 1 year earlier in obese girls and in girls. Progression through Justus stages is variable. Justus stage V (adult) should be reached by age 18. Performed By: #### L 3100.5055, L501.9985, L500.4100, L3300.1750, L501.6710, L803.3000, L3100.5450, L501.9520, L506.0400, L3100.5400, L3300.3500, L500.4050, L506.1001, L700.8000, L3300.1500, L801.2600, L3100.9000, L100.0100 #### [facility] [address] [facility] [place], [address] FSH and LHon 08-14-2024 FSH 6.1 mIU/mL Normal [facility] Comment on above: Result Comment: FEMA LE: Follicular: 1.4 - 18.1 mIU/mL Midcycle: 3.4 - 33.4 mIU/mL Luteal: 1.5 - 9.1 mIU/mL Post Menopause: 23.0 - 116.3 mIU/mL MALE: 1.4 - 18.1 mIU/mL Performed By: #### L 3100.5055, L501.9985, L500.4100, L3300.1750, L501.6710, L803.3000, L3100.5450, L501.9520, L506.0400, L3100.5400, L3300.3500, L500.4050, L506.1001, L700.8000, L3300.1500, L801.2600, L3100.9000, L100.0100 #### [facility] [address] [place], [address] LH 5.8 mIU/mL Normal [facility] Comment on above: Result Comment: FEMA LE: Follicular: 1.9-12.5 mIU/mL Midcycle: 8.7-76.3 mIU/mL Luteal: 0.5-16.9 mIU/mL Post Menopause: 15.9-54.0 mIU/mL MALE: 20-70 Years: 1.5-9.3 mIU/mL >70 Years: 3.1-34.6 mIU/mL Performed By: #### L 3100.5055, L501.9985, L500.4100, L3300.1750, L501.6710, L803.3000, L3100.5450, L501.9520, L506.0400, L3100.5400, L3300.3500, L500.4050, L506.1001, L700.8000, L3300.1500, L801.2600, L3100.9000, L100.0100 #### [facility] [address] [place], [place], [id number] Glomerular filtration rate ( GFR) estimation/1.73 sq m using serum, plasma, or whole bon 08-14-2024 GFR/1.73 sq M.predicted among non-blacks MDRD (S/P/Bld) [Vol rate/Area] 98 mL/min/{1.73_m2} >60 [facility] Comment on above: mL/min/1.73m2 CKD-EP I Creatinine Equation (2020) Hematocrit Auto (Bld) [Volum e fraction]on 08-14-2024 Hematocrit (Bld) [Volume fraction] 39.7 % 37-47 [facility] Hemoglobin A1con 08-14-2024 HbA1c (Bld) [Mass fraction] 4.6 % Normal <=5.6 [facility] Comment on above: Result Comment: Norm al < 5.7 % Prediabetic 5.7 - 6.4 % Diabetic >or= 6.5 % Please note range changes. Performed By: #### L 3100.5055, L501.9985, L500.4100, L3300.1750, L501.6710, L803.3000, L3100.5450, L501.9520, L506.0400, L3100.5400, L3300.3500, L500.4050, L506.1001, L700.8000, L3300.1500, L801.2600, L3100.9000, L100.0100 #### [facility] [address] [place], [address] Hemoglobin A1c percentageon 08-14-2024 HbA1c (Bld) [Mass fraction] 4.6 % <5.7 [facility] Comment on above: Normal < 5.7 % Predi abetic 5.7 - 6.4 % Diabetic >or= 6.5 % Please note range changes. Hemoglobin measurementon Hemoglobin (Bld) [Mass/Vol] 13.3 g/dL 12.0-15.0 [facility] Immature granulocytes/100 WB C Auto (Bld)on 08-14-2024 Immature granulocytes/100 WBC (Bld) 0.300 % 0.0-0.9 [facility] Comment on above: IG% - Immature Granu locytes (promyelocytes, myelocytes and metamyelocytes) > 1% indicates that a LEFT SHIFT is Present. LDL calc ser/plason 08-15-19 25 Cholesterol in LDL [Mass/Vol] 117 mg/dL [facility] Comment on above: Kpvbmrijkj=825-814 m g/dL & Higher Igvt=128 mg/dL or greater Laboratory - Chemistry and C hemistry - challengeon 08-14-2024 AST [Catalytic activity/Vol] 18 U/L <32 [facility] Lipid Profileon 08-14-2024 CHOL:HDL 3.43 Normal [facility] Comment on above: Performed By: #### L 3100.5055, L501.9985, L500.4100, L3300.1750, L501.6710, L803.3000, L3100.5450, L501.9520, L506.0400, L3100.5400, L3300.3500, L500.4050, L506.1001, L700.8000, L3300.1500, L801.2600, L3100.9000, L100.0100 #### [facility] [address] [place], [address] Cholesterol [Mass/Vol] 185 mg/dL Normal <=200 [facility] Comment on above: Result Comment: Chol esterol level, Desirable <200 mg/dL Borderline high cholesterol 200-239 mg/dL High cholesterol >=240 mg/dL Recommendations of the NCEP Adult Treatment Panel for the following risk-cutoff thresholds for the [place] population. Performed By: #### L 3100.5055, L501.9985, L500.4100, L3300.1750, L501.6710, L803.3000, L3100.5450, L501.9520, L506.0400, L3100.5400, L3300.3500, L500.4050, L506.1001, L700.8000, L3300.1500, L801.2600, L3100.9000, L100.0100 #### [facility] [address] [place], [address] (013) Cholesterol in HDL [Mass/Vol] 54 mg/dL Normal [facility] Comment on above: Result Comment: Sol onal Cholesterol Education Program (NCEP) guidelines: <40 mg/dL: Low HDL-cholesterol (major risk factor for CHD) >= 60 mg/dL: High HDL-cholesterol (negative risk factor for CHD) HDL-cholesterol is affected by a number of factors, e.g. smoking, exercise, hormones, sex and age. Performed By: #### L 3100.5055, L501.9985, L500.4100, L3300.1750, L501.6710, L803.3000, L3100.5450, L501.9520, L506.0400, L3100.5400, L3300.3500, L500.4050, L506.1001, L700.8000, L3300.1500, L801.2600, L3100.9000, L100.0100 #### [facility] [address] [place], [address] (730) Cholesterol in LDL [Mass/Vol] 117 mg/dL Normal [facility] Comment on above: Result Comment: Bord vfoygl=279-426 mg/dL Higher Blti=281 mg/dL or greater Performed By: #### L 3100.5055, L501.9985, L500.4100, L3300.1750, L501.6710, L803.3000, L3100.5450, L501.9520, L506.0400, L3100.5400, L3300.3500, L500.4050, L506.1001, L700.8000, L3300.1500, L801.2600, L3100.9000, L100.0100 #### [facility] [address] [place], [place], [id number] Cholesterol in VLDL [Mass/Vol] 15 mg/dL Normal 5-40 [facility] Comment on above: Performed By: #### L 3100.5055, L501.9985, L500.4100, L3300.1750, L501.6710, L803.3000, L3100.5450, L501.9520, L506.0400, L3100.5400, L3300.3500, L500.4050, L506.1001, L700.8000, L3300.1500, L801.2600, L3100.9000, L100.0100 #### [facility] [address] [facility] [place], [place], [id number] Triglyceride [Mass/Vol] 73 mg/dL Normal [facility] Comment on above: Result Comment: The drugs N-Acetylcysteine and Metamizole may falsely depress this assay. Normal range: <150 mg/dL Borderline High: 150-199 mg/dL High: 200-499 mg/dL Very High: >500 mg/dL Performed By: #### L 3100.5055, L501.9985, L500.4100, L3300.1750, L501.6710, L803.3000, L3100.5450, L501.9520, L506.0400, L3100.5400, L3300.3500, L500.4050, L506.1001, L700.8000, L3300.1500, L801.2600, L3100.9000, L100.0100 #### [facility] [place], [address] MCV (mean corpuscular volume ) determinationon 08-14-2024 MCV (RBC) [Entitic vol] 94.1 fL 81-99 [facility] Mean corpuscular hemoglobin (MCH) determinationon 08-14-2024 MCH (RBC) [Entitic mass] 31.5 pg 27.0-32.0 [facility] Mean corpuscular hemoglobin concentration (MCHC) determinationon 08-14-2024 MCHC (RBC) [Mass/Vol] 33.5 g/dL 32-36 [facility] Mean platelet volume determi nationon 08-14-2024 Platelet mean volume (Bld) [Entitic vol] 10.1 fL 6.2-12.0 [facility] Monocyte percentageon 2024 Monocytes/100 WBC (Bld) 5.9 % 0-10 [facility] Neutrophil percentageon 07-21 Neutrophils/100 WBC (Bld) 58.1 % 47-70 [facility] Nucleated red blood cell per centageon 08-14-2024 Nucleated RBC/100 WBC (Bld) [Ratio] 0 % 0-5 [facility] Platelet counton 08-14-2024 Platelets (Bld) [#/Vol] 195 10*3/uL 150-450 [facility] Potassium measurement (mass/ volume)on 08-14-2024 Potassium (Unsp spec) [Mass/Vol] 4.1 mmol/L 3.3-5.1 [facility] RBC Auto (Bld) [#/Vol]on RBC (Bld) [#/Vol] 4.22 10*6/uL 4.2-5.4 [facility] Screening total cholesterol/ high density lipoprotein (HDL) cholesterol ratioon 08-14-2024 Cholesterol.total/Mary Kate sterol in HDL [Mass ratio] 3.43 {ratio} [facility] Serum DNA double strand anti body assay (units/volume)on 08-14-2024 DNA double strand Ab Qn (S) TNP [facility] Comment on above: Test not performed Serum Scl-70 antibody assay (units/volume)on 08-14-2024 SCL-70 extractable nuclear Ab Qn (S) TNP [facility] Comment on above: Test not performed Serum creatinine measurement (mass/volume)on 08-14-2024 Creatinine [Mass/Vol] 0.78 mg/dL 0.70-1.20 [facility] Serum globulin measurementon 08-14-2024 Globulin (S) [Mass/Vol] 2.5 g/dL 2.2-4.2 [facility] Serum glucose measurement (m ass/volume)on 08-14-2024 Glucose [Mass/Vol] 84 mg/dL 70-99 [facility] Serum human chorionic gonado tropin detection for pregnancyon 08-14-2024 HCG ( test) Ql < 1 mIU/mL <9 [facility] Comment on above: Gestational Age0.2-1 Week: 5-50 mIU/mL1-2 Weeks: 50-500 mIU/mL2-3 Weeks: 100-5000 mIU/mL3-4 Weeks: 500-10,000 mIU/mL4-5 Weeks:1000-50,000 mIU/mL5-6 Weeks: 10,000-100,000 mIU/mL6-8 Weeks: 15,000-200,000 mIU/mL2-3 Months:10,000-100,000 mIU/mL Serum or plasma 17-hydroxypr ogesterone measurement (mass/volume)on 08-14-2024 17-Hydroxyprogesterone [Mass/Vol] 23 ng/dL . [facility] Comment on above: Adult Female Follicu lar 15 - 70 Luteal 35 - 290 Serum or plasma C reactive p rotein measurement (mass/volume)on 08-14-2024 CRP [Mass/Vol] 6.09 mg/L High 0.0-3.0 [facility] Serum or plasma alanine adkins otransferase (ALT) measurementon 08-14-2024 ALT [Catalytic activity/Vol] 9 U/L <35 [facility] Serum or plasma albumin dino urement (mass/volume)on 08-14-2024 Albumin [Mass/Vol] 3.9 g/dL 3.5-5.0 [facility] Serum or plasma albumin/glob ulin mass ratioon 08-14-2024 Albumin/Globulin [Mass ratio] 1.6 {ratio} 0.9-2.4 [facility] Serum or plasma alkaline mona sphatase measurementon 08-14-2024 ALP [Catalytic activity/Vol] 55 U/L 35-104 [facility] Serum or plasma calcium dino urement (mass/volume)on 08-14-2024 Calcium [Mass/Vol] 8.9 mg/dL 7.6-11.0 [facility] Serum or plasma cholesterol in HDL measurement (mass/volume)on 08-14-2024 Cholesterol in HDL [Mass/Vol] 54 mg/dL >40 [facility] Comment on above: National Cholesterol Education Program (NCEP) guidelines:<40 mg/dL: Low HDL-cholesterol (major risk factor for CHD)>= 60 mg/dL: High HDL-cholesterol (negative risk factor for CHD)HDL-cholesterol is affected by a number of factors, e.g. smoking, exercise, hormones, sex and age. Serum or plasma cholesterol measurement (mass/volume)on 08-14-2024 Cholesterol [Mass/Vol] 185 mg/dL <201 [facility] Comment on above: Cholesterol level, D esirable <200 mg/dLBorderline high cholesterol 200-239 mg/dLHigh cholesterol >=240 mg/dLRecommendations of the NCEP Adult Treatment Panel for the following risk-cutoff thresholds for the [place] population. Serum or plasma estradiol me asurement after follitropin dose (mass/volume)on 08-14-2024 E2 post dose follitropin [Mass/Vol] 125.0 pg/mL [facility] Comment on above: FEMALES ADULT FEMALE : Premenopausal: 15-350 pg/mL(E2 levels vary widely through the menstrual cycle) Postmenopausal: <10 pg/mL JUSTUS STAGES MEAN AGE REFERENCE RANGES Stage I(>14 days and prepubertal) 7.1 years Undetectable-20 pg/mLL Stage II 10.5 years Undetectable-24 pg/mL Stage III 11.6 years Undetectable-60 pg/mL Stage IV 12.3 years 15-85 pg/mL Stage V 14.5 years 15-350 pg/mL Puberty onset (transition from Justus stage I to Justus stage II) occurs for girls at a median age of 10.5 (/- 2) years. There is evidence that it may occur up to 1 year earlier in obese girls and in girls.Progression through Justus stages is variable. Justus stage V (adult) should be reached by age 18. Serum or plasma flecainide m easurement (mass/volume)on 08-14-2024 Flecainide [Mass/Vol] 0.628 ng/mL . [facility] Comment on above: For assays employing antibodies, the possibility exists forinterference by heterophile antibodies in the samples.11.Rasta Aguirre Interferences in Immunoassays - still a threat. Clin. Chem. 2000; 46: 6650-7908.This test was developed and its performance characteristicsdetermined by [employer]. It has not been cleared or approvedby the Food and Drug Administration.Reference Range:Females 36 - 40y: 0.42 - 8.34Median 1.69AMH concentrations of >= 1.06 ng/mL is correlated with abetter response to ovarian stimulation, produced moreretrievable oocytes and higher odds of live accordingto Eulalia et al. Fertility and Sterility. 2010:94:0231-8591. The current AMH test method correlates withthe study method with a slope of 0.94.Females at risk of ovarian hyperstimulation syndrome orpolycystic ovarian syndrome (PCOS) may exhibit elevatedserum AMH concentrations. AMH levels from PCOS patientsmay be 2 to 5 fold higher than age-appropriate referenceinterval values.Granulosa cell tumors of the ovary may secrete AMH alongwith other tumor markers. Elevated AMH is not specific formalignancy, and the assay should not be used exclusively todiagnose or exclude an AMH-secreting ovarian tumor. Serum or plasma insulin dino urement (mass/volume)on 08-14-2024 Insulin [Mass/Vol] 4.5 uIU/mL 2.6-24.9 [facility] Serum or plasma prolactin me asurement (mass/volume)on 08-14-2024 Prolactin [Mass/Vol] 8.8 ng/mL 4.8-33.4 [facility] Serum or plasma urea nitroge n measurement (mass/volume)on 08-14-2024 Urea nitrogen [Mass/Vol] 12 mg/dL 4-19 [facility] Sodium levelon 08-14-2024 Sodium [Moles/Vol] 139 mmol/L 133-145 [facility] T4 Free Directon 08-14-2024 T4 FREE DIRECT 1.10 ng/dL Normal 0.76-1.46 [facility] Comment on above: Order Comment: N Performed By: #### L 3100.5055, L501.9985, L500.4100, L3300.1750, L501.6710, L803.3000, L3100.5450, L501.9520, L506.0400, L3100.5400, L3300.3500, L500.4050, L506.1001, L700.8000, L3300.1500, L801.2600, L3100.9000, L100.0100 #### [facility] [address] [facility] [address] [place], [place], [id number] T4 freeon 08-14-2024 Free T4 [Mass/Vol] 1.10 ng/dL 0.76-1.46 [facility] TSH DL <= 0.005 mIU/L Qnon 0 08-14-2024 TSH Qn 2.160 uIU/mL 0.300-4.20 0 [facility] Thyroid Stim Hormone (TSH)on 08-14-2024 TSH 2.160 uIU/mL Normal 0.300-4.20 0 [facility] Comment on above: Performed By: #### L 3100.5055, L501.9985, L500.4100, L3300.1750, L501.6710, L803.3000, L3100.5450, L501.9520, L506.0400, L3100.5400, L3300.3500, L500.4050, L506.1001, L700.8000, L3300.1500, L801.2600, L3100.9000, L100.0100 #### [facility] [address] [facility] [place], [place], [id number] Total proteinon 08-14-2024 Protein [Mass/Vol] 6.3 g/dL 5.9-8.4 [facility] Triglycerides measurementon 08-14-2024 Triglyceride [Mass/Vol] 73 mg/dL <199 [facility] Comment on above: The drugs N-Acetylcy steine and Metamizole may falsely depress this assay. Normal range: <150 mg/dLBorderline High: 150-199 mg/dLHigh: 200-499 mg/dLVery High: >500 mg/dL Vitamin D,25 Hydroxyon 08-14 Vitamin D 25-OH 32.1 ng/mL Normal 30-100 [facility] Comment on above: Result Comment: Luba min D Status Deficiency: <20 ng/mL (50nmol/L) Insufficiency: 20-30 ng/mL (50-75 nmol/L) Sufficiency: 30-100 ng/mL (75-250 nmol/L) Toxicity: >100 ng/mL (>250 nmol/L) Performed By: #### L 3100.5055, L501.9985, L500.4100, L3300.1750, L501.6710, L803.3000, L3100.5450, L501.9520, L506.0400, L3100.5400, L3300.3500, L500.4050, L506.1001, L700.8000, L3300.1500, L801.2600, L3100.9000, L100.0100 #### [facility] [address] [place], [address] White blood cell (WBC) count on 08-14-2024 WBC (Bld) [#/Vol] 3.6 10*3/uL Low 4.4-11.0 [facility] hCG Titer Quant., Serumon HCG QUANT. < 1 Normal <9 non-preg [facility] Comment on above: Order Comment: [id number] Result Comment: Gest ational Age 0.2-1 Week: 5-50 mIU/mL 1-2 Weeks: 50-500 mIU/mL 2-3 Weeks: 100-5000 mIU/mL 3-4 Weeks: 500-10,000 mIU/mL 4-5 Weeks:1000-50,000 mIU/mL 5-6 Weeks: 10,000-100,000 mIU/mL 6-8 Weeks: 15,000-200,000 mIU/mL 2-3 Months:10,000-100,000 mIU/mL Performed By: #### L 3100.5055, L501.9985, L500.4100, L3300.1750, L501.6710, L803.3000, L3100.5450, L501.9520, L506.0400, L3100.5400, L3300.3500, L500.4050, L506.1001, L700.8000, L3300.1500, L801.2600, L3100.9000, L100.0100 #### [facility] [address] [place], [address] [facility] 01-19-2024 CN Office Visit ([facility] ) ----- MARIEL HONG ([id number]) 1985 F Date Time Provider Department 01/19/24 9:00 AM [facility] During your visit today, we recorded the following information about you: Temperature Pulse Respiration Blood pressure 98.1 degrees 75/minute 16/minute 102/68 Weight Last Period 87.9 kg 01/16/24 Sapphire Marsh APRN.[employer] 01/19/2024 9:22 AM Signed Subjective The history is provided by the patient. No agency recruiter was used. REAGAN Hong is a 38 year old female who presents today for CC of sore throat and ear pain for 1 day. She denies any cough, congestion, runny nose, nausea, vomiting or diarrhea. She denies any known exposure. She has used ibuprofen/tylenol BP 102/68 Pulse 75 Temp 36.7 ?C (98.1 ?F) (Left Tympanic) Resp 16 Wt 87.9 kg (193 lb 12.6 oz) LMP 01/16/2024 (Approximate) SpO2 97% BMI 31.76 kg/m? Social History Tobacco Use Smoking status: Never Smokeless tobacco: Never Substance Use Topics Alcohol use: Yes Comment: occasional Drug use: No PAST MEDICAL HISTORY Diagnosis Date NEGATIVE MEDICAL HISTORY I have confirmed and edited as necessary, the [facility] Review of Systems Constitutional: Negative for chills and fever. HENT: Positive for ear pain and sore throat. Negative for congestion and sinus pain. Respiratory: Negative for cough, sputum production, shortness of breath and wheezing. Cardiovascular: Negative for chest pain. Musculoskeletal: Negative for myalgias. Neurological: Negative for headaches. Objective Physical Exam Vitals and nursing note reviewed. HENT: Head: Normocephalic and atraumatic. Right Ear: Ear canal and external ear normal. A middle ear effusion (clear) is present. Tympanic membrane is bulging. Left Ear: Ear canal and external ear normal. A middle ear effusion (clear) is present. Tympanic membrane is bulging. Nose: No mucosal edema, congestion or rhinorrhea. Right Sinus: No maxillary sinus tenderness or frontal sinus tenderness. Left Sinus: No maxillary sinus tenderness or frontal sinus tenderness. Mouth/Throat: Pharynx: Uvula midline. No oropharyngeal exudate or posterior oropharyngeal erythema. Cardiovascular: Rate and Rhythm: Normal rate and regular rhythm. Heart sounds: Normal heart sounds. Pulmonary: Effort: Pulmonary effort is normal. Breath sounds: Normal breath sounds. Lymphadenopathy: Head: Right side of head: No submental, submandibular or tonsillar adenopathy. Left side of head: No submental, submandibular or tonsillar adenopathy. Cervical: No cervical adenopathy. Skin: General: Skin is warm and dry. Neurological: Mental Status: She is alert. Psychiatric: Mood and Affect: Affect normal. ASSESSMENT/PLAN: 1. Sore throat - ICD9: 462, ICD10: J02.9 - suspect viral - Group A strep molecular testing negative - Discussed supportive care treatment with fluids, rest and analgesia. - The patient may also use warm salt water gargles, throat lozenges and/or OTC throat spray as needed. - Contagious dz precautions discussed- including considered contagious until on antibiotics for 24 hours - The patient should follow up in one week if symptoms persist or worsen - Call back if drooling, increased temperature, symptoms of dehydration and/or still sick in one week BMX solution as needed for throat pain - STREP A MOLECULAR (POC) 2. Eustachian tube dysfunction, bilateral - ICD9: 381.81, ICD10: H69.93 Zyrtec - D Flonase/nasocort as directed Diagnosis and treatment plan were discussed and questions were answered to the patient's satisfaction. Pt acknowledged understanding of concepts and follow up plan. Specific signs and symptoms that would indicate the need for higher level of care were discussed in detail warranting prompt ER evaluation. MADALYN Chaparro Tonya, APRN.CNP 01/19/2024 9:20 AM Addendum Rest, increase water intake Motrin or Tylenol as needed for fever or pain. Salt water gargles, chloraseptic spray or lozenges as needed for sore throat. Warm beverages, honey. Nasal saline spray as needed Cool mist humidifier at night A cold normally lasts 7-10 days. If your symptoms are lasting longer, develop fever, or worsening by that time instead of improving then return to clinic or follow up with PCP for re-evaluation. Tylenol (generic acetaminophen) 500 mg-2 tabs every 8 hrs. as needed for fever and aches Ibuprofen 600 mg (3-200mg tablets) every 6 hours Flonase or Nasonex 2 sprays in each nostril once a day Claritin - D or Zyrtec - D daily for 7-10 days to help with ears Mayte Mack APRN.CNP 01/19/2024 2:02 PM Signed Addended by: MAYTE MACK on: 01/19/2024 02:02 PM Modules accepted: Orders Allergies As of Date: 01/19/2024 Noted Allergy Reaction PHENTERMINE 02/05/2023 1 - Mental Status Change 2 - Rash Comments (more content not included)... Normal [facility] STREP A MOLECULAR (POC)on Procedural Control Valid [facility] Strep A (POCT) Negative Negative [facility] CBC W Auto Differential pane l (Bld)on 06-22-2023 Basophils (Bld) [#/Vol] 0.06 10*3/uL NINF [facility] Basophils/100 WBC (Bld) 1.7 % [facility] Differential cell count method Nom (Bld) Auto [facility] Eosinophils (Bld) [#/Vol] 0.12 10*3/uL [facility] Eosinophils/100 WBC (Bld) 3.4 % [facility] Erythrocyte distribution width (RBC) [Ratio] 12.8 % 11.5 - 15.0 % [facility] Hematocrit (Bld) [Volume fraction] 42.0 % 36.0 - 46.0 % [facility] Hemoglobin (Bld) [Mass/Vol] 13.5 g/dL 11.5 - 15.5 g/dL [facility] Immature granulocytes (Bld) [#/Vol] [facility] Immature granulocytes/100 WBC (Bld) 0.3 % [facility] Interpretation and review of laboratory results Abnormal [facility] Lymphocytes (Bld) [#/Vol] 1.02 10*3/uL [facility] Lymphocytes/100 WBC (Bld) 29.2 % [facility] MCH (RBC) [Entitic mass] 30.5 pg 26.0 - 34.0 pg [facility] MCHC (RBC) [Mass/Vol] 32.1 g/dL 30.5 - 36.0 g/dL [facility] MCV (RBC) [Entitic vol] 94.8 fL 80.0 - 100.0 fL [facility] Monocytes (Bld) [#/Vol] 0.23 10*3/uL [facility] Monocytes/100 WBC (Bld) 6.6 % [facility] Neutrophils (Bld) [#/Vol] 2.05 10*3/uL [facility] Neutrophils/100 WBC (Bld) 58.8 % [facility] Nucleated RBC (Bld) [#/Vol] [facility] Nucleated RBC/100 WBC (Bld) [Ratio] 0.0 % /100 WBC [facility] Platelet mean volume (Bld) [Entitic vol] 11.0 fL 9.0 - 12.7 fL [facility] Platelets (Bld) [#/Vol] 179 10*3/uL [facility] RBC (Bld) [#/Vol] 4.43 10*6/uL 3.90 - 5.20 m/uL [facility] WBC (Bld) [#/Vol] 3.49 10*3/uL [facility] CNOVon 01-30-2023 CNOV Office Visit (WELLME ) ----- MARIEL HONG ([id number]) 1985 F Date Time Provider Department 01/30/23 1:00 PM HENRRY JHA During your visit today, we recorded the following information about you: Henrry Jha R Ac 01/30/2023 1:51 PM Signed No show Referring Provider: SELF [200] Allergies As of Date: 01/30/2023 (No Known Allergies) Date Reviewed: 01/10/2023 Reviewed by: Franci Wing APRN.OBIEE CONSULTANT - Fully Assessed Reason for Visit: No Show [1558] Primary Visit Diagnosis:No-show for appointment [Z91.199] Prescriptions as of 01/30/2023 - Phentermine HCl 37.5 mg tablet Take 1 tablet by mouth once daily for 30 days. Before breakfast Problem List As Of Date 01/30/2023 Noted Resolved Obesity, Class II, BMI 35-39.9 [E66.9] 07/04/2022 Attention deficit disorder (ADD) in adult [F98.*07/04/2022 Encounter Status:Closed by HENRRY JHA on 01/30/23 [facility] 12-28-2022 CNOV Office Visit (WELLME ) ----- MARIEL HONG ([id number]) 1985 F Date Time Provider Department 12/28/22 1:00 PM HENRRY JHA During your visit today, we recorded the following information about you: Henrry Jha R 12/28/2022 1:40 PM Signed No show Referring Provider: SELF [200] Allergies As of Date: 12/28/2022 (No Known Allergies) Date Reviewed: 12/19/2022 Reviewed by: Elle Gr LPN - Fully Assessed Reason for Visit: No Show [1558] Primary Visit Diagnosis:No-show for appointment [Z91.199] Prescriptions as of 12/28/2022 - metoprolol succinate ER (TOPROL XL) 25 mg 24 hr tablet Take 25 mg by mouth. - VYVANSE 20 mg capsule Take 20 mg by mouth once daily. - Ciclopirox (LOPROX) 8 % solution Apply to affected area daily at bedtime. Problem List As Of Date 12/28/2022 Noted Resolved Obesity, Class II, BMI 35-39.9 [E66.9] 07/04/2022 Attention deficit disorder (ADD) in adult [F98.*07/04/2022 Encounter Status:Closed by HENRRY JHA on 12/28/22 [facility] Absolute lymphocyte countOrd ered By: Sulema Gonzalez on 12-05-2022 Lymphocytes Auto (Unsp spec) [#/Vol] 1.23 10*3/uL 0.83-4.51 [facility] Basophil percentageOrdered B y: Sulema Gonzalez on 12-05-2022 Basophils/100 WBC (Bld) 1.0 % 0-1 [facility] Eosinophils/100 WBC (Bld) 1.9 % 0-5 [facility] Neutrophils (Bld) [#/Vol] 3.2 10*3/uL 2.0-7.7 [facility] Neutrophils/100 WBC (Bld) 65.9 % 47-70 [facility] Testosterone [Mass/Vol] 7 ng/dL 8-60 [facility] WBC (Bld) [#/Vol] 4.9 10*3/uL 4.4-11.0 [facility] Blood erythrocytes count (nu mber/volume)Ordered By: Sulema Gonzalez on 12-05-2022 RBC (Bld) [#/Vol] 4.31 10*6/uL 4.2-5.4 [facility] Blood hemoglobin measurement (mass/volume)Ordered By: Sulema Gonzalez on 12-05-2022 Hemoglobin (Bld) [Mass/Vol] 13.1 g/dL 12.0-15.0 [facility] Blood lymphocytes/100 leukoc ytesOrdered By: Sulema Gonzalez on 12-05-2022 Lymphocytes/100 WBC (Bld) 25.4 % 19-41 [facility] Blood monocytes/100 leukocyt esOrdered By: Sulema Gonzalez on 12-05-2022 Monocytes/100 WBC (Bld) 5.6 % 0-10 [facility] Blood platelet mean volumeOr dered By: Sulema Gonzalez on 12-05-2022 Platelet mean volume (Bld) [Entitic vol] 9.7 fL 6.2-12.0 [facility] Determination of erythrocyte mean corpuscular volume (MCV)Ordered By: Sulema Gonzalez on 12-05-2022 MCV (RBC) [Entitic vol] 93.7 fL 81-99 [facility] Free testosterone percentage Ordered By: Sulema Gonzalez on 12-05-2022 Testosterone Free/Testosterone.total [Mass fraction] 1.37 % 0.50-2.80 [facility] Hematocrit Auto (Bld) [Volum e fraction]Ordered By: Sulema Gonzalez on 12-05-2022 Hematocrit (Bld) [Volume fraction] 40.4 % 37-47 [facility] Laboratory - Chemistry and C hemistry - challengeOrdered By: Sulema Gonzalez on 12-05-2022 Free T4 [Mass/Vol] 0.90 ng/dL 0.76-1.46 [facility] Laboratory - Hematology and Cell countsOrdered By: Sulema Gonzalez on 12-05-2022 Erythrocyte distribution width (RBC) [Entitic vol] 42.3 fL 35.1-43.9 [facility] Erythrocyte distribution width (RBC) [Ratio] 12.3 % 11.6-14.6 [facility] Immature granulocytes/100 WBC (Bld) 0.200 % 0.0-0.9 [facility] Comment on above: IG% - Immature Granu locytes (promyelocytes, myelocytes and metamyelocytes) > 1% indicates that a LEFT SHIFT is Present. MCH (RBC) [Entitic mass] 30.4 pg 27.0-32.0 [facility] Nucleated RBC/100 WBC (Bld) [Ratio] 0 % 0-5 [facility] MCHC Auto (RBC) [Mass/Vol]Or dered By: Sulema Gonzalez on 12-05-2022 MCHC (RBC) [Mass/Vol] 32.4 g/dL 32-36 [facility] No Panel InformationOrdered By: Sulema Gonzalez on 12-05-2022 Dehydroepiandrosterone Sulfate 66.0 ug/dL 57.3-279.2 [facility] Comment on above: Performed at: [employer] [address] [id number] Director: Sabas Nathan PhD, Phone: [phone] at: [employer] [address] [id number] Director: De Calvin MD, Phone: [phone] Follicle Stimulating Hormone 2.1 mIU/mL [facility] Comment on above: NORMAL REFERENCE RAN GES FEMALE FOLLICULAR 2.3 - 12.6 mIU/mL MID-CYCLE PEAK 5.2 - 17.5 mIU/mL LUTEAL 1.7 - 12.9 mIU/mL POST-MENOPAUSAL ON MHT 5.9 - 72.8 mIU/mL NOT ON MHT 12.7 - 132.2 mlU/mL MALE 0.7 - 10.8 mIU/mL Thyroid Stimulating Hormone (TSH) 2.79 uIU/mL 0.358-3.74 [facility] Platelets bldOrdered By: Chandler Gonzalez on 12-05-2022 Platelets (Bld) [#/Vol] 242 10*3/uL 150-450 [facility] Serum or plasma 17-hydroxypr ogesterone measurement (mass/volume)Ordered By: Sulema Gonzalez on 12-05-2022 17-Hydroxyprogesterone [Mass/Vol] 71 ng/dL . [facility] Comment on above: Adult Female Follicu lar 15 - 70 Luteal 35 - 290Performed at: [facility] [id number] Director: De Calvin MD, Phone: [phone] Serum or plasma estradiol (E 2) measurement (mass/volume)Ordered By: Sulema Hassantings on 12-05-2022 E2 [Mass/Vol] 460.6 pg/mL [facility] Comment on above: NORMAL REFERENCE RAN GES FEMALE FOLLICULAR 21.4 - 164.8 pg/mL MID-CYCLE PEAK 49.9 - 367.2 pg/mL LUTEAL 40.2 - 259.0 pg/mL POST-MENOPAUSAL ON MHT <11.0 - 462.1 pg/mL NOT ON MHT <11.0 - 58.3 pg/mL MALE <11.0 - 52.5 pg/mL NOTE:[employer] HAS CONFIRMED THE DRUG FULVETRANT (FASLODEX) MAY CAUSE FALSELY ELEVATED ESTRADIOL RESULTS WHEN USING THIS TEST METHOD. IF PATIENT IS TAKING FULVESTRANT AN ALTERNATIVE METHOD SHOULD BE USED TO DETERMINE ESTRADIOL CONCENTRATION. Serum or plasma prolactin me asurement (mass/volume)Ordered By: Sulema Carlos on 12-05-2022 Prolactin [Mass/Vol] 9.0 ng/mL [facility] Comment on above: NORMAL REFERENCE RAN GES FEMALE NON- 2.2 - 30.3 ng/mL 8.1 - 347.6 ng/mL POST-MENOPAUSAL 0.7 - 31.5 ng/mL MALE 2.5 - 17.4 ng/mL Serum or plasma testosterone free measurement (mass/volume)Ordered By: Sulema Gonzalez on 12-05-2022 Testosterone Free [Mass/Vol] 0.10 ng/dL 0.10-0.85 [facility] HCG QUAL UR B/Oon 08-13-2022 status Negative neg - pos [facility] Quality Check Yes [facility] UA DIP, URINE (POC)on 2022 BILIRUBIN UA (POCT) Negative Negative Jin [facility] CLARITY UA (POCT) Cloudy [facility] COLOR UA (POCT) Yellow [facility] GLUCOSE UA (POCT) Negative Negative mg/dL [facility] HEMOGLOBIN/BLOOD UA (POCT) Moderate Abnormal Negative [facility] KETONE UA (POCT) Negative Negative mg/dL [facility] LEUKOCYTES UA (POCT) Small [facility]normal Negative [facility] NITRITE UA (POCT) Negative Negative [facility] PH UA (POCT) 7.5 4.5 - 8.0 [facility] Protein Ql (U) 30 mg/dL Abnormal Negative mg/dL [facility] SPECIFIC GRAVITY UA (POCT) 1.020 1.005 - 1.030 [facility] UROBILINOGEN UA (POCT) 0.2 E.U./dL Blanca l E.U./dL [facility] ANAon 08-11-2022 Nuclear Ab IF (S) [Titer] 40 {titer} Normal Neg 40 [facility] ([place] Comment on above: Result Comment: LASHONDA Screen and Titer methodology is an immunofluorescent technique utilizing Hep2 Substrate. Performed By: #### G FR, ESR, CRP, BMP #### [address] [address] #### LASHONDA #### [address] [address] .GFRon 08-10-2022 GFR 80 ml/min/1.73sqm Normal [facility] ([place] Comment on above: Result Comment: GFR Population mean for , Non- Americans Ages 20-29 = 116 mL/min/1.73 sq.m. Ages 30-39 = 107 mL/min/1.73 sq.m. Ages 40-49 = 99 mL/min/1.73 sq.m. Ages 50-59 = 93 mL/min/1.73 sq.m. Ages 60-69 = 85 mL/min/1.73 sq.m. Ages 70+ = 75 mL/min/1.73 sq.m. Chronic Kidney Disease: Less than 60 mL/min/1.73 square meters End Stage Renal Disease: Less than 15 mL/min/1.73 square meters Performed By: #### G FR, ESR, CRP, BMP #### [address] [address] #### LASHONDA #### [address] [address] GFR Non- 66 ml/min/1.73sqm Normal [facility] ([place] Comment on above: Result Comment: GFR Population mean for , Non- Americans Ages 20-29 = 116 mL/min/1.73 sq.m. Ages 30-39 = 107 mL/min/1.73 sq.m. Ages 40-49 = 99 mL/min/1.73 sq.m. Ages 50-59 = 93 mL/min/1.73 sq.m. Ages 60-69 = 85 mL/min/1.73 sq.m. Ages 70+ = 75 mL/min/1.73 sq.m. Chronic Kidney Disease: Less than 60 mL/min/1.73 square meters End Stage Renal Disease: Less than 15 mL/min/1.73 square meters Performed By: #### G FR, ESR, CRP, BMP #### [address] [address] #### LASHONDA #### [address] [address] BMPon 08-10-2022 BUN/Creatinine Ratio 17 ratio Normal 7-27 [facility] ([place]) Comment on above: Performed By: #### G FR, ESR, CRP, BMP #### [place] [address] #### LASHONDA #### [address] [address] Calcium [Mass/Vol] 9.6 mg/dL Normal 8.4-10.2 [facility] ([place]) Comment on above: Performed By: #### G FR, ESR, CRP, BMP #### [place] [address] #### LASHONDA #### [address] [address] Chloride [Moles/Vol] 106 mmol/L Normal 98-107 [facility] ([place]) Comment on above: Performed By: #### G FR, ESR, CRP, BMP #### [place] [address] #### LASHONDA #### [address] [address] CO2 [Moles/Vol] 28 mmol/L Normal 22-29 [facility] ([place] Comment on above: Performed By: #### G FR, ESR, CRP, BMP #### [place] [id number] #### LASHONDA #### [address] [address] Creatinine [Mass/Vol] 0.95 mg/dL Normal 0.55-1.02 Replaced by [facility] ([place]) Comment on above: Performed By: #### G FR, ESR, CRP, BMP #### [place] [id number] #### LASHONDA #### [address] [address] Electrolyte Balance 7.0 mEq/L Normal 4.0-15.0 [facility] ([place]) Comment on above: Performed By: #### G FR, ESR, CRP, BMP #### [place] [address] #### LASHONDA #### [address] [address] Glucose [Mass/Vol] 93 mg/dL Normal 70-105 [facility] ([place]) Comment on above: Performed By: #### G FR, ESR, CRP, BMP #### [place] [address] #### LASHONDA #### [address] [address] Potassium [Moles/Vol] 4.5 mmol/L Normal 3.5-5.1 Replaced by [facility] ([place] Comment on above: Performed By: #### G FR, ESR, CRP, BMP #### [place] [address] #### LASHONDA #### [address] [address] Sodium [Moles/Vol] 141 mmol/L Normal 136-145 [facility] ([place]) Comment on above: Performed By: #### G FR, ESR, CRP, BMP #### [place] [address] #### LASHONDA #### [address] [address] Urea nitrogen [Mass/Vol] 16 mg/dL Normal 7-18 [facility] ([place] Comment on above: Performed By: #### G FR, ESR, CRP, BMP #### [address] [address] #### LASHONDA #### [place] [address] CRPon 08-10-2022 C-Reactive Protein 1.4 mg/dL High 0.0-0.9 [facility] ([place]) Comment on above: Performed By: #### G FR, ESR, CRP, BMP #### [address] [address] #### LASHONDA #### [place] [address] ESRon 08-10-2022 Erythrocyte Sed Rate 21 mm/hr High 0-20 [facility] ([place]) Comment on above: Performed By: #### G FR, ESR, CRP, BMP #### [place] [address] #### LASHONDA #### [place] [address] LABORATORYOrdered By: SYSTEM SYSTEM on 08-10-2022 Calcium [Mass/Vol] 9.6 mg/dL Invalid Interpretation Code 8.4 - 10.2 mg/dL AO ADM SS Chloride [Moles/Vol] 106 mmol/L Invalid Interpretation Code 98 - 107 mmol/L AO ADM SS CO2 [Moles/Vol] 28 mmol/L Invalid Interpretation Code 22 - 29 mmol/L AO ADM SS Creatinine [Mass/Vol] 0.95 mg/dL Invalid Interpretation Code 0.55 - 1.02 mg/dL AO ADM SS CRP [Mass/Vol] 1.4 mg/dL Invalid Interpretation Code 0.0 - 0.9 mg/dL AO ADM SS Electrolyte Balance 7.0 mEq/L Invalid Interpretation Code 4.0 - 15.0 mEq/L AO ADM SS GFR/1.73 sq M.predicted among blacks MDRD (S/P/Bld) [Vol rate/Area] 80 ml/min/1.73sqm Invalid Interpretation Code AO Chemistry S GFR/1.73 sq M.predicted among non-blacks MDRD (S/P/Bld) [Vol rate/Area] 66 ml/min/1.73sqm Invalid Interpretation Code AO Chemistry S Glucose [Mass/Vol] 93 mg/dL Invalid Interpretation Code 70 - 105 mg/dL AO ADM SS Potassium [Moles/Vol] 4.5 mmol/L Invalid Interpretation Code 3.5 - 5.1 mmol/L AO ADM SS Sodium [Moles/Vol] 141 mmol/L Invalid Interpretation Code 136 - 145 mmol/L AO ADM SS Urea nitrogen [Mass/Vol] 16 mg/dL Invalid Interpretation Code 7 - 18 mg/dL AO ADM SS Urea nitrogen/Creatinine [Mass ratio] 17 ratio Invalid Interpretation Code 7 - 27 ratio AO ADM SS LABORATORYOrdered By: Rafael Faustin on 08-10-2022 ESR Photometric method (Bld) [Velocity] 21 mm/hr Invalid Interpretation Code 0 - 20 mm/hr AO Man Heme SS Serum or plasma choriogonado tropin detectionon 04-15-2021 HCG ( test) Ql < 1 mIU/mL <4 [facility] Work Phone: Comment on above: hCG levels with Gest ational AgeGestational Age hCG mIU/mL (IU/L)0.2 - 1 week 5 - 501-2 weeks 50 - 5002-3 weeks 100 - 73983-5 weeks 500 - 255069-8 weeks 1000 - 837410-6 weeks 29649 - 100,0006-8 weeks 49082 - 200,0002-3 months 87166 - 100,000 Serum or plasma progesterone measurement (mass/volume)on 04-15-2021 Progesterone [Mass/Vol] 0.32 ng/mL See Comment [facility] Work Phone: Comment on above: Progesterone Referen ce Table: UNITS Female: Follicular 0.15 - 1.40 ng/mL Luteal 3.34 - 25.56 ng/mL Mid-luteal 4.44 - 28.03 ng/mL Postmenopausal 0.0 - 0.73 ng/mL : 1st Trimester 11.22 - 90.00 ng/mL 2nd Trimester 25.55 - 89.40 ng/mL 3rd Trimester 48.40 -422.50 ng/mL Operative Reporton 1 Operative Report [facility] [address] [id number] RECORD OF PROCEDURE PATIENT NAME: MARIEL HONG DATE OF : 1985 [facility] REC #: [id number] PT LOCATION: OR PACU PT TYPE: OPS AGE: 35 SEX: F ADMISSION DATE: 12/10/2020 DATE OF SERVICE: 12/10/2020 SURGEON: Sharmila Holden MD 1ST CHAIRMAN AND CEO: None. ESTIMATED BLOOD LOSS: 5 mL. INTRAVENOUS FLUIDS: 350 mL. SALINE FLUID: 1000 mL. INDICATIONS FOR PROCEDURE: The patient is 35-year-old with a history infertility who presents to the office for a saline infusion sonogram notable for a possible endometrial polyp. We discussed the option of an operative hysteroscopy. After review of the risks, benefits, and alternatives, decision was made to proceed to the operating room. PREPROCEDURE DIAGNOSIS: Endometrial polyp. POSTPROCEDURE DIAGNOSIS: Intrauterine adhesion. NAME OF PROCEDURE: Operative hysteroscopy, lysis of adhesion. FINDINGS: Exam under anesthesia revealed 7-week size uterus. No adnexal masses. Hysteroscopic findings: Ostia seen bilaterally. Small adhesion noted in the right cornu. DESCRIPTION OF PROCEDURE: After informed consent was obtained, patient was taken to the operating room where the anesthesia team administered adequate anesthesia. Patient underwent an exam under anesthesia with the above-mentioned findings. Patient was prepped and draped in the usual sterile fashion. A weighted speculum was inserted in the patient's vagina. An anterior retractor was used to visualize the cervix. The anterior lip of the cervix was grasped with a single-tooth tenaculum which was then dilated to accommodate the operative hysteroscope. The hysteroscope was advanced to the patient's uterine cavity. Notable for an endouterine adhesion noted in the right cornu. Hysteroscopic scissors were used to gently excise this adhesion that was noted and thus the procedure was completed. All instruments were removed from patient. Light bleeding was noted at the tenaculum site on the left side which resolved with silver nitrite and Monsel solution as well as pressure. After hemostasis was documented, the procedure was deemed complete. All instrument counts were correct. Following the procedure, patient tolerated the procedure well and taken to the recovery room in stable condition. MD VIVIENNE Aguilera/[id number] SSI File#: [id number] CC: Sharmila Holden MD [facility] Progress Noteon 05-29-2017 Training Executive Authentication Interface Message Text Mariel Hong is a new patient who's primary care provider is NO PRIMARY CARE,MD Cindy here for evaluation of heart.Chief ComplaintPatient presents with ECHO Resolved cystic hygroma/ increased nuchal foldHistory of Presenting ProblemHPIThank you for consulting us regarding aMriel Hong. She [facility] fetalheart.I saw this patient in the echocardiogram clinic on 05/29/2017.Patient was referred to the echocardiographic clinic for a fetalechocardiogram since there was cystic hygroma, increased nuchal fold on OBultrasound.Cardiac ROSReview of Systemse the full notePast Medical HistoryPast Medical History:Diagnosis Date Cardiac abnormality Pt states she went to ER for heart palpitations a few years ago and wasinformed there was a heart valve issue; pt had a Echo was normal; no follow-up Recurrent loss in patient in first trimester, antepartum Seasonal allergiesHistory reviewed. No pertinent surgical history.Medications:Outpa tient Encounter Prescriptions as of 05/29/2017Medication Sig Dispense Refill ondansetron (ZOFRAN) 4 MG tablet Take 4 mg by mouth every 4 hours as needed Vit w/Fx-Zdekxemnf-BO (PNV PO) Take 1 Tab by mouth daily aspirin 81 MG chewable tablet Take 81 mg by mouth dailyNo facility-administered encounter medications on file as of 05/29/2017.Allergies:No Known AllergiesFamily Medical History:Family HistoryProblem Relation Age of Onset No known problems Mother No known problems Father No known problems Brother Cancer Paternal Grandmother Breast High Blood Pressure Paternal GrandmotherSocial History:Social HistorySocial History Marital status: Spouse name: Hari Lundberg Number of children: N/A Years of education: N/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 Atrioventricularand ventriculoarterial concordance seen.Atria:Normal left and right atrial size. There was a large patent foramen ovale bywoklec-mt-awhg shunt.Tricuspid valve:There was normal tricuspid valve. There was normal Doppler across the tricuspidvalve.Mitral valve:Normal mitral valve. There was normal Doppler across the mitral valve.Right ventricle:There was normal size and systolic function.Left ventricle:There was normal size and systolic function.Aortic valve:Normal aortic valve. There was normal Doppler across the aortic valve seen.Pulmonary valve:Normal pulmonary valve. There was normal Doppler across the pulmonary valveseen.Ventricular septum:There was no obvious ventricular septal defect seen.Main pulmonary artery:Normal main pulmonary artery.Pulmonary arteries:Good size branch pulmonary arteries.Pulmonary veins:There were at least 2/4 pulmonary veins seen entering into the left atrium.Systemic venous return:There was normal systemic venous return seen.Aortic arch:Aortic arch was not well seen, however normal 3-vessel view.Ductal arch:Patent Ductal arch.3-vessel view:There was normal 3-vessel view.Ductus venosus:There was normal flow pattern seen in the ductus venosus.Umbilical artery and umbilical vein.There was normal pulse Doppler in umbilical artery and umbilical vein.Rhythm:There was sinus rhythm. There was no arrhythmia noted.Impression and recommendations.1)Technic ally difficult study due to movements.2) Aortic arch was not well seen, however normal 3-vessel view. Otherwise normalfetal echocardiogram.3) I have discussed the limitations of echocardiographic examination, thatis likely to miss small ventricular septal defects as well as mild semilunarvalve stenosis. Patent foramen ovale and patent ductus arteriosus are normalfindings in utero. Coarctation of aorta is difficult to diagnose pre natally inthe presence of patent ductus arteriosus.4) I have also discussed echocardiographic findings in detail includingfetal circulation, pathophysiology of Patent foramen ovale and patent ductusarteriosus, prognosis, medical and surgical treatments, follow up fetalechocardiograms and follow ups.5) I would like to see in cardiology clinic here at [facility], 1-2 moths after the or earlier if cardiac condition/statuschanges in any way.Counseling and/or coordination of care was greater than 35 minutes which is morethan 50% of the total time of 60 minutes spent on the encounter. Normal [facility] Progress Noteon 04-16-2017 Training Executive Authentication Interface Message Text Met with patient and her Hari Cordero for cystic hygroma Medical, surgical and family hx reviewed. Pt has had 3 prior losses. APLSworkup done in early . Results requested from office. Pt declineshaving karyotyping done for self and husbandPsycho/Social risk:Support System: HusbandFinancial Stressors: deniesFamily Dynamics: lives with husbandBehavioral Health Issues: deniesWork History: full timeType of Work: Play[employer] Information on [facility] services given.Consent to share information with [facility] team, OB and wheel installer signed. Pt plans to deliver at [facility] with Dr. Calvin.Conference Translator is not yet decided. [facility] provider list given. Female fetus- name is yet to be decidedMethod of feeding: will provide pumped breast milk. Provided breastfeedingpamphletUltr asound findings today: See report in procedures for details.Pt will follow up in 1 month for reevaluation of anatomyReinforced continued OB care with AmparoThe total patient time of the visit was 10 minutes, of which greater than 50% ofthe time was spent counseling and coordinating care. Normal [facility] Training Executive Authentication Interface Message Text Patient was seen by [facility] for cystic hygroma. The total patient time of the visit was 15 minutes, of which greater than 50% of the time was spent counseling and coordinating care. Normal [facility] Progress Noteon 03-19-2017 Training Executive Authentication Interface Message Text [facility]- MEDICINE CONSULTReferring/Requesti jose Provider: Meg Calvin, MDPCP: NO PRIMARY CARE, 1, MDINDICATION FOR CONSULT: cystic hygromaHISTORY OF PRESENT ILLNESS:Patient is a 31 y.o. at 12w6d who was scheduled for NT today and wasdiagnosed with a cystic hygroma. US findings discussed with Dr. Calvin whorequested a MFM consult. Yesenia had 3 first trimester losses and isbeing evaluated for antiphospholipid antibody syndrome. She is taking a ASA 81mg daily while results are pending. She has no other known pregnancycomplications.OB HistoryGravida Para Term AB Living4 3SAB TAB Ectopic Multiple Live Births3# Outcome Date GA Lbr Tyrell/2nd Weight Sex Delivery Anes PTL Lv4 Current3 SAB 10/2016 7w0d2 2009 6w0d SAB1 2005 6w0d SABPast Medical History:Diagnosis Date Cardiac abnormality Pt states she went to ER for heart palpitations a few years ago and wasinformed there was a heart valve issue; pt had a Echo was normal; no follow-up Recurrent loss in patient in first trimester, antepartum Seasonal allergiesHistory reviewed. No pertinent surgical history.PERTINENT FAMILY HISTORY:Family HistoryProblem Relation Age of Onset No known problems Mother No known problems Father No known problems Brother Cancer Paternal Grandmother Breast High Blood Pressure Paternal GrandmotherMEDS:Outpatien t Prescriptions Marked as Taking for the 03/19/17 encounter (OfficeVisit) with Monalisa Villatoro, DOMedication Sig Dispense Refill ondansetron (ZOFRAN) 4 MG tablet Take 4 mg by mouth every 4 hours as needed aspirin 81 MG chewable tablet Take 81 mg by mouth daily Vit w/Hx-Wqkflfspk-FE (PNV PO) Take 1 Tab by mouth dailyALLERGY:No Known AllergiesREVIEW OF SYSTEMS:As mentioned above and in Subjective, all other Review of Systems reviewed andnegative.PHYSICAL EXAM:VITAL SIGNS: Ht 167.6 cm Wt 81.6 kg (180 lb) BMI 29.05 kg/m General Appearance: Alert, appropriate appearance for age.HEENT Exam: Grossly normal.Respiratory: breathing non-laboredMusculoskeleta l: fully ambulatory without limitationsIMAGING:Custic hygroma - see full reportIMPRESSION:Mariel is a 31 y.o. at 12w6d withPatient Active Problem ListDiagnosis Cystic hygroma of fetus in dimas Recurrent loss in patient in first trimester, antepartumSUMMARY OF CONSULT:I reviewed the ultrasound findings and implications with Mariel and her .She further discussed this with Katrin Villa, MS, [facility].We explained that a cystic hygroma is an accumulation of lymphatic fluid at thebase of the neck. The prognosis for a with a cystic hygroma istypically poor, but depends largely on the presence of other complications suchas a chromosome abnormality or generalized fluid accumulation (hydrops).Approximately 60% of pregnancies with a cystic hygroma will have a chromosomeabnormality, with the majority having Bland syndrome, Down syndrome, or [id number]. Cystic hygromas have also been seen in other genetic syndromes, along withvarious defects and/or intellectual disabilities. In addition, cystichygromas can be associated with cardiac abnormalities. We discussed theincreased risk for miscarriage or intrauterine demise.We reviewed screening and testing options including ultrasound, cell free fetalDNA screening, chorion villus sampling and amniocentesis.FOLLOW-UP:1 . Cell free DNA screening was ordered. We will discuss the results withMariel when the are available and we will forward a copy to your office.2. She is scheduled for [facility] in 2 weeks, including ultrasoundto asses the cystic hygroma.3. Continue antiphospholipid antibody testing with Dr. Calvin.4. Anatomic survey between 18-20 weeks and echo around 22 weeks.The total patient time of the visit was 15 minutes, of which greater than 50% ofthe time was spent counseling and coordinating care. Normal [facility] Lab Report: Miscellaneous La b Procedureon 02-26-2017 GE use only - for LinkLogic import when terms are not otherwise specified . Invalid Interpretation Code [facility] Lab Report: CT/NG WCH BY PCR on 02-23-2017 Chlamydia trachomatis DNA [Presence] in Urine by Probe and target amplification method Negative Invalid Interpretation Code Negative [facility] Neisseria gonorrhoeae presence Negative Invalid Interpretation Code Negative [facility] Lab Report: Follicle Stimula ting Hormoneon 02-23-2017 follicle stimulating hormone, serum < 0.2 mIU/mL Invalid Interpretation Code [facility] Lab Report: Prolactinon Prolactin 26.2 ng/mL Invalid Interpretation Code [facility] Lab Report: Thyroid Stim Hor andry (TSH)on 02-23-2017 Thyroid stimulating hormone (TSH) 1.59 u[iU]/mL Invalid Interpretation Code 0.358-3.74 [facility] Office Visit: miscarriage fo llow upon 11-01-2016 Documentation of current medications (procedure) Done Invalid Interpretation Code [facility] Documentation of current medications (procedure) T Invalid Interpretation Code [facility] Fall risk assessment No Invalid Interpretation Code [facility] Hemoglobin presence in stool not done Invalid Interpretation Code [facility] Tobacco smoking status NHIS Never Invalid Interpretation Code [facility] Tobacco smoking status [facility] Tobacco smoking status MOIS Invalid Interpretation Code [facility] Tobacco use CPHS Never smoker Invalid Interpretation Code [facility] Vital Signs Date Time Vital Sign Value Performing Clinician Faci litpaul 09-04-2024 17:27-0400 Body mass index (BMI) [Ratio] 29.12 kg/m2 Tom Jordan MAKE UP MAN.OBIEE CONSULTANT Work Phone: [facility] 09-04-2024 17:27-0400 Body temperature 98.6 [degF] Tom Jordan MAKE UP MAN.OBIEE CONSULTANT Work Phone: [facility] 09-04-2024 17:27-0400 Body weight 80.6 kg Tom Joradn MAKE UP MAN.OBIEE CONSULTANT Work Phone: [facility] 09-04-2024 17:27-0400 Diastolic blood pressure 82 mm[Hg] Tom Jordan MAKE UP MAN.OBIEE CONSULTANT Work Phone: [facility] 09-04-2024 17:27-0400 Heart rate 69 /min Tom Jordan MAKE UP MAN.OBIEE CONSULTANT Work Phone: [facility] 09-04-2024 17:27-0400 Respiratory rate 18 /min Tom Jordan MAKE UP MAN.OBIEE CONSULTANT Work Phone: [facility] 07-17-2025 17:27-0400 SaO2% (BldA) [Mass fraction] 96 % Tom Jordan MAKE UP MAN.OBIEE CONSULTANT Work Phone: [facility] 09-04-2024 17:27-0400 Systolic blood pressure 115 mm[Hg] Tom Jordan MAKE UP MAN.OBIEE CONSULTANT Work Phone: [facility] 01-19-2024 08:47-0500 Body mass index (BMI) [Ratio] 31.76 kg/m2 Sapphire Marsh MAKE UP MAN.OBIEE CONSULTANT Work Phone: [facility] 01-19-2024 08:47-0500 Body temperature 98.1 [degF] Sapphire Carolinak MAKE UP MAN.OBIEE CONSULTANT Work Phone: [facility] 01-19-2024 08:47-0500 Body weight 87.9 kg Sapphire Marsh MAKE UP MAN.OBIEE CONSULTANT Work Phone: [facility] 01-19-2024 08:47-0500 Diastolic blood pressure 68 mm[Hg] Sapphire Marsh MAKE UP MAN.OBIEE CONSULTANT Work Phone: [facility] 01-19-2024 08:47-0500 Heart rate 75 /min Sapphire Carolinak MAKE UP MAN.OBIEE CONSULTANT Work Phone: [facility] 01-19-2024 08:47-0500 Respiratory rate 16 /min Sapphire Marsh MAKE UP MAN.OBIEE CONSULTANT Work Phone: [facility] 01-19-2024 08:47-0500 SaO2% (BldA) [Mass fraction] 97 % Sapphire Marsh MAKE UP MAN.OBIEE CONSULTANT Work Phone: [facility] 01-19-2024 08:47-0500 Systolic blood pressure 102 mm[Hg] Sapphire Carolinak MAKE UP MAN.OBIEE CONSULTANT Work Phone: [facility] 06-22-2023 08:47-0400 Body mass index (BMI) [Ratio] 33.1 kg/m2 Franci Wing MAKE UP MAN.OBIEE CONSULTANT Work Phone: [facility] 06-22-2023 08:47-0400 Body weight 91.63 kg Franci Serranor MAKE UP MAN.OBIEE CONSULTANT Work Phone: [facility] 06-22-2023 08:47-0400 Diastolic blood pressure 80 mm[Hg] Franci Dylan MAKE UP MAN.OBIEE CONSULTANT Work Phone: [facility] 06-22-2023 08:47-0400 Heart rate 75 /min Franci Dylan MAKE UP MAN.OBIEE CONSULTANT Work Phone: [facility] 06-22-2023 08:47-0400 SaO2% (BldA) [Mass fraction] 98 % Franci Dylan MAKE UP MAN.OBIEE CONSULTANT Work Phone: [facility] 06-22-2023 08:47-0400 Systolic blood pressure 120 mm[Hg] Franci Dylan MAKE UP MAN.OBIEE CONSULTANT Work Phone: [facility] 01-10-2023 11:36-0500 Body weight 100.25 kg Franci Dylan MAKE UP MAN.OBIEE CONSULTANT Work Phone: [facility] 01-10-2023 11:36-0500 Diastolic blood pressure 70 mm[Hg] Franci Dylan MAKE UP MAN.OBIEE CONSULTANT Work Phone: [facility] 01-10-2023 11:36-0500 Heart rate 64 /min Franci Dylan MAKE UP MAN.OBIEE CONSULTANT Work Phone: [facility] 01-10-2023 11:36-0500 SaO2% (BldA) [Mass fraction] 98 % Franci Dylan MAKE UP MAN.OBIEE CONSULTANT Work Phone: [facility] 01-10-2023 11:36-0500 Systolic blood pressure 110 mm[Hg] Franci Dylan MAKE UP MAN.OBIEE CONSULTANT Work Phone: [facility] 12-19-2022 16:52-0400 Body temperature 98.6 [degF] Mayte Praisler-Wood MAKE UP MAN.OBIEE CONSULTANT Work Phone: [facility] 12-19-2022 16:52-0400 Body weight 99.34 kg Mayte Praisler-Wood MAKE UP MAN.OBIEE CONSULTANT Work Phone: [facility] 12-19-2022 16:52-0400 Diastolic blood pressure 82 mm[Hg] Mayte Praisler-Wood MAKE UP MAN.OBIEE CONSULTANT Work Phone: [facility] 12-19-2022 16:52-0400 Heart rate 74 /min Mayte Praisler-Wood MAKE UP MAN.OBIEE CONSULTANT Work Phone: [facility] 12-19-2022 16:52-0400 Respiratory rate 16 /min Mayte Praisler-Wood MAKE UP MAN.OBIEE CONSULTANT Work Phone: [facility] 12-19-2022 16:52-0400 SaO2% (BldA) [Mass fraction] 99 % Mayte Praisler-Wood MAKE UP MAN.OBIEE CONSULTANT Work Phone: [facility] 12-19-2022 16:52-0400 Systolic blood pressure 120 mm[Hg] Mayte Praisler-Wood MAKE UP MAN.OBIEE CONSULTANT Work Phone: [facility] 12-05-2022 11:26-0400 Body height 167.[address] Raz Solis Work Phone: [facility] 12-05-2022 11:14-0400 Body mass index (BMI) [Ratio] 35.8 kg/m2 Dr. Raz Solis Work Phone: [facility] 12-05-2022 11:14-0400 Body weight 100.[address] Raz Solis Work Phone: [facility] 12-05-2022 11:14-0400 Diastolic blood pressure 78 mm[Hg] Dr. Raz Solis Work Phone: [facility] 12-05-2022 11:14-0400 Systolic blood pressure 132 mm[Hg] Dr. Raz Solis Work Phone: [facility] 08-13-2022 10:53-0400 Body temperature 98.2 [degF] Mayte Praisler-Wood MAKE UP MAN.OBIEE CONSULTANT Work Phone: [facility] 08-13-2022 10:53-0400 Body weight 98.43 kg Mayte Praisler-Wood MAKE UP MAN.OBIEE CONSULTANT Work Phone: [facility] 08-13-2022 10:53-0400 Diastolic blood pressure 80 mm[Hg] Mayte Praisler-Wood MAKE UP MAN.OBIEE CONSULTANT Work Phone: [facility] 08-13-2022 10:53-0400 Heart rate 69 /min Mayte Praisler-Wood MAKE UP MAN.OBIEE CONSULTANT Work Phone: [facility] 08-13-2022 10:53-0400 Respiratory rate 16 /min Mayte Praisler-Wood MAKE UP MAN.OBIEE CONSULTANT Work Phone: [facility] 08-13-2022 10:53-0400 SaO2% (BldA) [Mass fraction] 98 % Mayte Praisler-Wood MAKE UP MAN.OBIEE CONSULTANT Work Phone: [facility] 08-13-2022 10:53-0400 Systolic blood pressure 128 mm[Hg] Mayte Praisler-Wood MAKE UP MAN.OBIEE CONSULTANT Work Phone: [facility] 07-24-2022 08:40-0400 Body weight 98.43 kg Franci Dylan MAKE UP MAN.OBIEE CONSULTANT Work Phone: [facility] 07-24-2022 08:40-0400 Diastolic blood pressure 70 mm[Hg] Franci Dylan MAKE UP MAN.OBIEE CONSULTANT Work Phone: [facility] 07-24-2022 08:40-0400 Heart rate 76 /min Franci Dylan MAKE UP MAN.OBIEE CONSULTANT Work Phone: [facility] 07-24-2022 08:40-0400 SaO2% (BldA) [Mass fraction] 98 % Franci Dylan MAKE UP MAN.OBIEE CONSULTANT Work Phone: [facility] 07-24-2022 08:40-0400 Systolic blood pressure 110 mm[Hg] Franci Dylan MAKE UP MAN.OBIEE CONSULTANT Work Phone: [facility] 07-04-2022 07:13-0400 Body height 166.4 cm Franci Dylan MAKE UP MAN.OBIEE CONSULTANT Work Phone: [facility] 07-04-2022 07:13-0400 Body weight 98.43 kg Franci Dylan MAKE UP MAN.OBIEE CONSULTANT Work Phone: [facility] 07-04-2022 07:13-0400 Diastolic blood pressure 80 mm[Hg] Franci Serranor MAKE UP MAN.OBIEE CONSULTANT Work Phone: [facility] 07-04-2022 07:13-0400 Heart rate 70 /min Franci Serranor MAKE UP MAN.OBIEE CONSULTANT Work Phone: [facility] 07-04-2022 07:13-0400 SaO2% (BldA) [Mass fraction] 98 % Franci Serranor MAKE UP MAN.OBIEE CONSULTANT Work Phone: [facility] 07-04-2022 07:13-0400 Systolic blood pressure 100 mm[Hg] Franci Serranor MAKE UP MAN.OBIEE CONSULTANT Work Phone: [facility] 11-01-2016 08:43-0400 BMI (Body Mass Index) 28.37 kg/m2 Meg Calvin MD [facility] 11-01-2016 08:43-0400 Body Temperature 97.3 [degF] Meg Calvin MD [facility] 11-01-2016 08:43-0400 BP Diastolic 72 mm[Hg] Meg Calvin MD [facility] 11-01-2016 08:43-0400 BP Systolic 110 mm[Hg] Meg Calvni MD [facility] 11-01-2016 08:43-0400 Height 167.64 cm Meg Calvin MD [facility] 11-01-2016 08:43-0400 Pulse (Heart Rate) 67 /min Meg Calvin MD [facility] 11-01-2016 08:43-0400 Respiratory Rate 16 /min Meg Calvin MD [facility] 11-01-2016 08:43-0400 Weight 79.74 kg Meg Calvin MD [facility] Encounters Encounter Date Encounter Type Care Provider Facility Start: 09-04-2024 End: 09-04-2024 Office outpatient visit 15 minutes Tom Jordan MAKE UP MAN.OBIEE CONSULTANT Work Phone: [facility] Comment on above: Chest pain, unspecif ied type (Primary Dx) Start: 09-04-2024 End: 09-04-2024 ambulatory FRANCI WING Facility:[facility] Start: 08-14-2024 End: 08-14-[address] Raz Solis MD Work Phone: [facility] Start: 08-14-2024 End: 08-14-[address] Raz Solis MD Work Phone: [facility] Start: 08-14-2024 End: 08-14-2024 ambulatory Raz Solis Facility:[facility] Start: 01-19-2024 End: 01-19-2024 ambulatory FRANCI WING Facility:[facility] Start: 01-19-2024 End: 01-19-2024 Patient encounter procedure Sapphire Marsh MAKE UP MAN.OBIEE CONSULTANT Work Phone: [facility] Comment on above: Sore throat (Primary Dx); Eustachian tube dysfunction, bilateral Start: 10-24-2023 End: 10-29-2023 ambulatory Franci Wing MAKE UP MAN.OBIEE CONSULTANT Work Phone: Internal [place] [phone] Start: 06-22-2023 End: 06-22-2023 Patient encounter procedure Franci Wing MAKE UP MAN.OBIEE CONSULTANT Work Phone: [facility] Comment on above: Easy bruising (Prima ry Dx); Anemia, unspecified type; DUB (dysfunctional uterine bleeding); Encounter for therapeutic drug monitoring Start: 01-30-2023 End: 01-30-2023 Patient encounter procedure [facility] Comment on above: No-show for appointm ent (Primary Dx) Start: 01-10-2023 End: 01-10-2023 Patient encounter procedure Franci Wing MAKE UP MAN.OBIEE CONSULTANT Work Phone: Internal [facility] Comment on above: Obesity, Class II, B RI 35-39.9 (Primary Dx); Attention deficit disorder (ADD) in adult Start: 12-28-2022 End: 12-28-2022 Patient encounter procedure [facility] Comment on above: No-show for appointm ent (Primary Dx) Start: 12-19-2022 End: 12-19-2022 Patient encounter procedure Mayte Mack MAKE UP MAN.OBIEE CONSULTANT Work Phone: [facility] Comment on above: Bacterial sinusitis (Primary Dx); Other acute nonsuppurative otitis media of both ears, recurrence not specified Start: 12-05-2022 End: 12-05-[address] Raz Solis Work Phone: [facility] Work Phone: Start: 12-05-2022 End: 12-05-[address] Raz Solis Work Phone: [facility] Work Phone: Start: 08-14-2022 Telephone encounter Liss MALAVE Work Phone: [facility] Comment on above: Results Start: 08-13-2022 ambulatory Basia Vergara RN [employer] Comment on above: Flank Pain (Fever, l eft flank pain, frequent pain) Start: 08-13-2022 End: 08-13-2022 Patient encounter procedure Mayte Mack MAKE UP MAN.OBIEE CONSULTANT Work Phone: [facility] Comment on above: Urinary frequency (P rimary Dx); Irregular menses Start: 08-10-2022 End: 08-11-2022 ambulatory CECE BUTTERFIELD APRN-OBIEE CONSULTANT Facility:B Start: 08-10-2022 End: 08-10-2022 Patient encounter procedure CECE BUTTERFIELD MAKE UP MAN-OBIEE CONSULTANT [facility] Start: 07-24-2022 End: 07-24-2022 Patient encounter procedure Franci Wing MAKE UP MAN.OBIEE CONSULTANT Work Phone: [facility] Comment on above: 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); Palpitations; Shortness of breath; Generalized edema Start: 07-04-2022 End: 07-04-2022 Patient encounter procedure Franci Wing MAKE UP MAN.OBIEE CONSULTANT Work Phone: [facility] Comment on above: Palpitations (Primar y Dx); Shortness of breath; Near syncope; Vitamin D deficiency; Onychomycosis; Obesity, Class II, BMI 35-39.9; Attention deficit disorder (ADD) in adult; Encounter to establish care; Screening for HIV (human immunodeficiency virus); Special screening examination for viral disease; Depression screen; Encounter for screening for diabetes mellitus; Screening for lipid disorders Start: 04-15-2021 End: 04-15-2021 Patient encounter procedure [facility] Start: 12-10-2020 End: 12-10-2020 ambulatory [facility] Start: 09-03-2017 Patient encounter VIRGIE CRAWFORD [facility] Start: 08-06-2017 Patient encounter MEG TOLENTINO CAROLINA [facility] Start: 07-09-2017 End: 07-09-2017 Patient encounter MONALISA WOLFE [facility] Start: 06-11-2017 End: 06-11-2017 Patient encounter ALEXIA Demetrius RUDOLPH [facility] Start: 05-29-2017 End: 05-29-2017 Patient encounter VIRGIE Jewell YVETTE [facility] Start: 05-15-2017 End: 05-15-2017 Patient encounter JANICE LEÓN [facility] Start: 04-16-2017 End: 04-16-2017 Patient encounter MONALISA VILLATORO [facility] Start: 03-19-2017 End: 03-19-2017 Patient encounter MONALISA [facility] Procedures Date Procedure Procedure Detail Performing Clinician Start: 08-14-[address] Sary Solis MD Work Phone: Start: 08-14-2024 Antibody to centrome re measurement Dr. Raz Solis MD Work Phone: Comment on above: Test not performed Start: 08-14-2024 Antibody to extracta ble nuclear antigen measurement Dr. Raz Solis MD Work Phone: Comment on above: Test not performed Start: 08-14-2024 Antibody to ROBEL-[address] Raz Solis MD Work Phone: Comment on above: Test not performed Start: 08-14-2024 Antibody to lupus La protein measurement Dr. Raz Solis MD Work Phone: Comment on above: Test not performed Start: 08-14-2024 Antibody to SS-A measurement Dr. Raz Solis MD Work Phone: Comment on above: Test not performed Start: 08-14-[address] Raz Solis MD Work Phone: Comment on above: Test not performed Start: 08-14-2024 Dehydroepiandrostero ne sulfate level Dr. Raz Solis MD Work Phone: Start: 08-14-2024 Follicle stimulating hormone measurement Dr. Raz Solis MD Work Phone: Comment on above: FEMALE:Follicular: 1 .4 - 18.1 mIU/mLMidcycle: 3.4 - 33.4 mIU/mLLuteal: 1.5 - 9.1 mIU/mLPost Menopause: 23.0 - 116.3 mIU/mLMALE: 1.4 - 18.1 mIU/mL Start: 08-14-[address] Rza Solis MD Work Phone: Comment on above: FEMALE:Follicular: 1 .9-12.5 mIU/mLMidcycle: 8.7-76.3 mIU/mLLuteal: 0.5-16.9 mIU/mLPost Menopause: 15.9-54.0 mIU/mLMALE:20-70 Years: 1.5-9.3 mIU/mL>70 Years: 3.1-34.6 mIU/mL Start: 08-14-2024 OR NURSE MANAGER antibody measurement Dr. Raz Solis MD Work Phone: Comment on above: Test not performed Start: 08-14-[address] Raz Solis MD Work Phone: Comment on above: Follicular phase 0.1 - 0.9 Luteal phase 1.8 - 23.9 Ovulation phase 0.1 - 12.0 First trimester 11.0 - 44.3 Second trimester 25.4 - 83.3 Third trimester 58.7 - 214.0 Postmenopausal 0.0 - 0.1Performed at: [facility] [id number] Director: De Calvin MD, Phone: [phone] at: [facility] - [facility] [address] [id number] Director: Sabas Nathan PhD, Phone: [phone] Start: 08-14-2024 Vitamin D, 25-hydrox y measurement Dr. Raz Solis MD Work Phone: Comment on above: Vitamin D StatusDefi ciency: <20 ng/mL (50nmol/L)Insufficiency: 20-30 ng/mL (50-75 nmol/L)Sufficiency: 30-100 ng/mL (75-250 nmol/L)Toxicity: >100 ng/mL (>250 nmol/L) Start: 01-19-2024 STREP A MOLECULAR (POC) Sapphire Marsh APRN.[employer]BIEE CONSULTANT Work Phone: Start: 08-13-2022 End: 08-13-2022 Urnls dip stick/tablet rgnt auto w/o microscopy Pina Buckley PALaithC Work Phone: Start: 07-04-2022 Ecg routine ecg w/le ast 12 lds i&r only [facility] Provider Start: 11-01-2016 End: 03-06-2017 *MISC - Miscellaneous Lab Test #1 Meg Calvin MD Work Phone: Start: 11-01-2016 End: 03-06-2017 Follitropin (FSH) Meg Calvin MD Work Phone: Start: 11-01-2016 End: 03-06-2017 Prolactin Meg Calvin MD Work Phone: Start: 11-01-2016 End: 03-06-2017 Thyroid stimulating hormone (TSH) Meg Calvin MD Work Phone: Echocardiography [employer]SULT[employer] Plan of Treatment Date Care Activity Detail Author Start: 07-04-2027 Urine microalbumin profile [facility] Start: 10-20-2024 Influenza vaccination Influenza Vacc ine (#1) [facility] Start: 08-14-2024 Measurement of C-maine ctive protein using high sensitivity technique [facility] Start: 08-14-2024 Procedure [facility] Start: 10-31-2023 End: 10-31-2023 Patient encounter procedure 10/31/2023 8:50 AM EDT Appointment Mammogram [address] [place] [id number] Mammogram Start: 10-21-2023 Covid-19 Vaccine ( season) Covid-19 Vaccine () [facility] Start: 10-21-2023 Covid-19 Vaccine () Covid-19 Vaccine () [facility] Start: 10-21-2023 Influenza vaccination [facility] Start: 2023 Screening for malign ant neoplasm of breast Mammogram Screening [facility] Start: 06-22-2023 End: 09-21-2023 Ascorbate [Mass/volume] in Serum or Plasma [facility] Comment on above: Expected: 06/22/2023 , Expires: 09/21/2023 Start: 06-22-2023 End: 09-21-2023 Cobalamin (Vitamin B12) [Mass/volume] in Serum or Plasma [facility] Comment on above: Expected: 06/22/2023 , Expires: 09/21/2023 Start: 06-22-2023 End: 09-21-2023 Comprehensive metabolic 2000 panel - Serum or Plasma [facility] Work Phone: Comment on above: Expected: 06/22/2023 , Expires: 09/21/2023 Start: 06-22-2023 End: 09-21-2023 Ferritin [Mass/volume] in Serum or Plasma [facility] Comment on above: Expected: 06/22/2023 , Expires: 09/21/2023 Start: 06-22-2023 End: 09-21-2023 Folate [Mass/volume] in Serum or Plasma [facility] Comment on above: Expected: 06/22/2023 , Expires: 09/21/2023 Start: 06-22-2023 End: 09-21-2023 Iron and Iron binding capacity panel - Serum or Plasma [facility] Comment on above: Expected: 06/22/2023 , Expires: 09/21/2023 Start: 06-22-2023 End: 09-21-2023 Magnesium [Mass/volume] in Serum or Plasma [facility] Comment on above: Expected: 06/22/2023 , Expires: 09/21/2023 Start: 06-22-2023 End: 09-21-2023 Thyrotropin [Units/volume] in Serum or Plasma [facility] Comment on above: Expected: 06/22/2023 , Expires: 09/21/2023 Start: 02-19-2023 Behavioral Health Screening Behavioral Health Screening [facility] Start: 10-20-2022 Covid-19 Vaccine () Covid-19 Vaccine () [facility] Start: 10-20-2022 Influenza vaccination C [facility] Start: 08-13-2022 End: 10-13-2022 Bacteria identified in Urine by Culture URINE CULTURE Microbiology Routine Urinary frequency Expected: 08/13/2022, Expires: 10/13/2022 [facility] Work Phone: Comment on above: Expected: 08/13/2022 , Expires: 10/13/2022 Start: 07-04-2022 End: 09-03-2022 25-hydroxyvitamin D3 [Mass/volume] in Serum or Plasma [facility] Work Phone: Comment on above: Expected: 07/04/2022 , Expires: 09/03/2022 Start: 07-04-2022 End: 09-03-2022 CBC W Auto Differential panel - Blood [facility] Work Phone: Comment on above: Expected: 07/04/2022 , Expires: 09/03/2022 Start: 07-04-2022 End: 09-03-2022 Comprehensive metabolic 2000 panel - Serum or Plasma [facility] Work Phone: Comment on above: Expected: 07/04/2022 , Expires: 09/03/2022 Start: 07-04-2022 End: 09-03-2022 Hepatitis C virus Ab [Presence] in Serum [facility] Work Phone: Comment on above: Expected: 07/04/2022 , Expires: 09/03/2022 Start: 07-04-2022 End: 09-03-2022 HIV 1+2 Ab [Presence] in Serum or Plasma by Immunoassay [facility] Work Phone: Comment on above: Expected: 07/04/2022 , Expires: 09/03/2022 Start: 07-04-2022 End: 09-03-2022 Lipid 1996 panel - Serum or Plasma [facility] Work Phone: Comment on above: Expected: 07/04/2022 , Expires: 09/03/2022 Start: 07-04-2022 End: 09-03-2022 Magnesium [Mass/volume] in Serum or Plasma [facility] Work Phone: Comment on above: Expected: 07/04/2022 , Expires: 09/03/2022 Start: 07-04-2022 End: 09-03-2022 Thyrotropin [Units/volume] in Serum or Plasma [facility] Work Phone: Comment on above: Expected: 07/04/2022 , Expires: 09/03/2022 Start: 07-04-2022 End: 09-03-2022 Thyroxine (T4) free [Mass/volume] in Serum or Plasma [facility] Work Phone: Comment on above: Expected: 07/04/2022 , Expires: 09/03/2022 Start: 07-04-2022 End: 09-03-2022 Triiodothyronine (T3) Free [Mass/volume] in Serum or Plasma [facility] Work Phone: Comment on above: Expected: 07/04/2022 , Expires: 09/03/2022 Start: 11-01-2016 End: 11-01-2016 Appointment Appointment [facility] Start: 11-01-2016 End: 03-06-2017 *MISC - Miscellaneous Lab Test #1 *MISC - Miscellaneous Lab Test #1 [facility] Start: 11-01-2016 End: 03-06-2017 Follitropin (FSH) *FSH Level [facility] Start: 11-01-2016 End: 03-06-2017 Prolactin *PROL Prolactin [facility] Start: 11-01-2016 End: 03-06-2017 Thyroid stimulating hormone (TSH) *TSH [facility] Start: 08-29-2013 HPV TESTING HPV TESTING [facility] Start: 08-29-2013 Screening for malign ant neoplasm of cervix HPV Testing [facility] Start: 08-29-2004 PAP TESTING PAP TESTING [facility] Start: 08-29-2004 Screening for malign ant neoplasm of cervix [facility] Start: 08-29-2002 Hepatitis B Vaccine (1 of 3 - 19+ 3-dose series) Hepatitis B Vaccine (1 of 3 - 19+ 3-dose series) [facility] Start: 08-29-2001 Anxiety Screening Anxiety Screening [facility] Start: 08-29-2001 Depression Screening Depression Scre ening [facility] Start: 08-29-2001 HEPATITIS C SCREENING HEPATITIS C SC REENING [facility] Start: 08-29-2001 HIV SCREENING HIV SCREENING [facility] Start: 03-01-1984 COVID-19 VACCINE (#1) COVID-19 VACCI NE (#1) [facility] Start: 1985 HEPATITIS B (1 of 3 - 3-dose series) HEPATITIS B (1 of 3 - 3-dose series) [facility] Start: 1985 Hepatitis B Vaccine (1 of 3 - 3-dose series) Hepatitis B Vaccine (1 of 3 - 3-dose series) [facility] End: 11-22-2024 DBT Breast - bilateral screening JAYLA SCREENING W BRADY Radiology Routine Encounter for screening mammogram for breast cancer 1 Occurrences starting 10/24/2023 until 11/22/2024 [facility] Work Phone: Comment on above: 1 Occurrences starti ng 10/24/2023 until 11/22/2024 End: 07-05-2023 ECG COMPLETE ECG COMPLETE ECG Routine Palpitations Shortness of breath Near syncope 1 Occurrences starting 07/04/2022 until 07/05/2023 [facility] Work Phone: Comment on above: 1 Occurrences starti ng 07/04/2022 until 07/05/2023 ECG COMPLETE ECG COMPLETE ECG 07/04/2022 7:51 AM EDT [facility] End: 07-05-2023 Echocardiography ECHO Cardiology Routine Palpitations Shortness of breath 1 Occurrences starting 07/04/2022 until 07/05/2023 [facility] Work Phone: Comment on above: 1 Occurrences starti ng 07/04/2022 until 07/05/2023 OUTSIDE VENDOR CARDI AC OUTPATIENT EXTENDED RHYTHM RECORDING (WITHOUT TELEMETRY) OUTSIDE VENDOR CARDIAC OUTPATIENT EXTENDED RHYTHM RECORDING (WITHOUT TELEMETRY) Holter Routine Palpitations Shortness of breath Near syncope Ordered: 07/04/2022 [facility] Work Phone: Comment on above: Ordered: 07/04/2022 Serum testosterone measurement [facility] Testosterone Free [Mass/volume] in Serum or Plasma [facility] Testosterone measurement [facility] Immunizations Immunization Date Immunization Notes Care Provider Fa cility 07-03-2017 diphtheria, tetanus toxoids and acellular pertussis vaccine, unspecified formulation [facility] Work Phone: 07-03-2017 tetanus toxoid, redu aicha diphtheria toxoid, and acellular pertussis vaccine, adsorbed [facility] Work Phone: 03-02-2004 TD(adult) unspecifie d formulation Franci Wing [employer] Work Phone: [facility] Work Phone: Payers Date Payer Category Payer Self-pay [id number] 2021 [employer] Blue [facility] BLUE CARD PPO OOS [id number] 2021 Unknown [employer] BLUE CARD PPO OOS [id number] 2021-Present [phone] [address] [place] [address] PPO [id number] 1983 Unknown [id number] 1983 Unknown [id number] 1959 Unknown [id number] Unknown [id number] Unknown [id number] Social History Date Type Detail Facility Start: 10-08-2020 End: 12-05-2022 Tobacco smoking status MOIS Unknown if ever smoked [facility] Start: 08-22-2019 None [facility] Start: 08-22-2019 Spouse/ Significant Other [facility] Start: 1985 Sex Assigned At Female [facility] Start: 07-04-2022 End: 12-05-2022 Tobacco smoking status MOIS Never smoked tobacco [facility] Work Phone: Start: 07-04-2022 Tobacco use and exposure Smokeless tobacco non-user [facility] Work Phone: Start: 07-04-2022 End: 09-04-2024 Alcohol intake Current drinker of alcohol (finding) [facility] Start: 07-03-2022 History SDOH Alcohol Frequency 3 [facility] Start: 07-03-2022 History SDOH Alcohol Std Drinks 1 [facility] Start: 07-03-2022 History SDOH Social Connections Phone 5 [facility] Start: 07-03-2022 History SDOH Physical Activity DPW 2 [facility] Start: 07-03-2022 History SDOH Financial 4 [facility] Start: 09-06-2012 Alcohol Comment occasional [facility] Start: 1985 Sex Assigned At Not on file [facility] Start: 07-03-2022 End: 07-04-2022 History of Social function [facility] Start: 07-03-2022 End: 07-04-2022 Social connection and isolation panel [facility] Do you belong to any clubs or organizations such as confucianism groups, unions, fraternal or athletic groups, or school groups? Yes [facility] Are you now , , , , never or living with a partner? [facility] How often to you hav e a drink containing alcohol? 2-4 times a month [facility] How many standard dr inks containing alcohol do you have on a typical day? 1 or 2 [facility] How often do you hav e 6 or more drinks on 1 occasion? Never [facility] How hard is it for y ou to pay for the very basics like food, housing, medical care, and heating Not very hard [facility] Adult Depression Screening Assessment 0 [facility] Work Phone: Do you feel stress - tense, restless, nervous, or anxious, or unable to sleep at night because your mind is troubled all the time - these days [OSQ] Only a little [facility] (I/We) worried wheth er (my/our) food would run out before (I/we) got money to buy more. Never true [facility] In the past 12 month s, was there a time when you were not able to pay the mortgage or rent on time? No [facility] Start: 01-05-2023 Gender identity Identifies as female gender (finding) [facility] Clinical Notes 07-04-2022 to 09-04-2024 Tom Jordan APRN.SHAINA - 09/04/2024 7:43 PM EDTPatient Sapphire Osullivan APRN.SHAINA - 01/19/2024 8:55 AM Franci Hillman APRN.CNP - 06/22/2023 8:52 AM EDTPatient Instructions Note Date & Type Note Facility 09-04-2024 Note HNO ID: [id number] Author: TOM JORDAN APRN.CNP Service: ? Author Type: Nurse Practitioner Type: Progress Notes Filed: 09/04/2024 19:44 Note Text: Subjective HPI Nontoxic-appearing 39-year-old female presents urgent care chief complaint shortness of breath chest pain. Patient states was ill earlier this week. Has been afebrile feeling better. Today she had new onset shortness of breath and chest tightness. States pain is worse with ambulation. States walking up stairs to be increasingly short of breath. History of PVCs. Worked up in 2022 by cardiology with no abnormal findings. Past medical history prescription medications allergies reviewed .Patient presents with: Shortness of Breath: Chest tightness, upper back pain x1 day, cough, bodyaches, chills, ST, fever x4 days PAST MEDICAL HISTORY Diagnosis Date NEGATIVE MEDICAL HISTORY PAST SURGICAL HISTORY Procedure Laterality Date DANDC, DIAG AND/OR THERAPEUTIC N/A 12/2021 PAST SURGICAL HISTORY OF ORIF right femur fracture ALLERGIES Phentermine MEDICATIONS WEGOVY 1.7 mg/0.75 mL pen injector INJECT ONE PEN OF 1.7MG ONCE WEEKLY SUBCUTANEOUSLY LIDOCAINE VISCOUS 2 % solution Take 15 mL by mouth three times a day as needed. Mix with one tablespoon liquid maalox (OTC) and one tablespoon benadryl liquid (OTC) and swish and swallow or spit out. (Patient not taking: Reported on 09/04/2024) naltrexone-bupropion (CONTRAVE) 8-90 mg ER tablet Take 2 tablets by mouth once daily. (Patient not taking: Reported on 09/04/2024) FAMILY HISTORY Problem Relation Age of Onset None Mother None Father other (tuberculosis [Other]) Brother Rectal Cancer Maternal Grandmother Breast Cancer Paternal Grandmother Brain Cancer Paternal Grandmother Social History Tobacco Use Smoking status: Never Smokeless tobacco: Never Substance Use Topics Alcohol use: Yes Comment: occasional Drug use: No BP 115/82 Pulse 69 Temp 37 ?C (98.6 ?F) Resp 18 Wt 80.6 kg (177 lb 11.1 oz) LMP 01/16/2024 (Approximate) SpO2 96% BMI 29.12 kg/m? Review of Systems Constitutional: Negative for chills, fever and malaise/fatigue. HENT: Negative for congestion, ear discharge, ear pain, sinus pain and sore throat. Eyes: Negative for blurred vision, pain, discharge and redness. Respiratory: Positive for shortness of breath. Negative for cough, hemoptysis, sputum production, wheezing and stridor. Cardiovascular: Positive for chest pain. Gastrointestinal: Negative for abdominal pain, diarrhea, nausea and vomiting. Musculoskeletal: Negative for myalgias. Skin: Negative for itching and rash. Neurological: Negative for dizziness and headaches. Objective Physical Exam Constitutional: General: She is not in acute distress. Appearance: She is not diaphoretic. HENT: Head: Normocephalic. Jaw: No trismus, tenderness, swelling or pain on movement. Mouth/Throat: Mouth: Mucous membranes are moist. Pharynx: Oropharynx is clear. Uvula midline. No pharyngeal swelling, oropharyngeal exudate, posterior oropharyngeal erythema or uvula swelling. Eyes: Conjunctiva/sclera: Conjunctivae normal. Pupils: Pupils are equal, round, and reactive to light. Cardiovascular: Rate and Rhythm: Normal rate and regular rhythm. Heart sounds: Normal heart sounds. Pulmonary: Effort: Pulmonary effort is normal. No tachypnea, accessory muscle usage or respiratory distress. Breath sounds: Normal breath sounds. No stridor. No wheezing, rhonchi or rales. Abdominal: General: There is no distension. Palpations: Abdomen is soft. Tenderness: There is no abdominal tenderness. There is no guarding or rebound. Musculoskeletal: Cervical back: Normal range of motion and neck supple. No edema, erythema, rigidity or tenderness. No pain with movement. Normal range of motion. Lymphadenopathy: Cervical: No cervical adenopathy. Skin: General: Skin is warm and dry. Neurological: Mental Status: She is alert and oriented to person, place, and time. ASSESSMENT/PLAN: 1. Chest pain, unspecified type - ICD9: 786.50, ICD10: R07.9 Diagnosis chest pain shortness of breath. With pain worse with exertion refer patient to ED for further workup. Verbalized understand agrees with plan of care Tom Jordan APRN.[facility] 09-04-2024 History of Present illness Narrative Subjective HPI Nontoxic-appearing 39-year-old female presents urgent care chief complaint shortness of breath chest pain. Patient states was ill earlier this week. Has been afebrile feeling better. Today she had new onset shortness of breath and chest tightness. States pain is worse with ambulation. States walking up stairs to be increasingly short of breath. History of PVCs. Worked up in 2022 by cardiology with no abnormal findings. Past medical history prescription medications allergies reviewed .Patient presents with: Shortness of Breath: Chest tightness, upper back pain x1 day, cough, bodyaches, chills, ST, fever x4 days PAST MEDICAL HISTORY Diagnosis Date NEGATIVE MEDICAL HISTORY PAST SURGICAL HISTORY Procedure Laterality Date D&C, DIAG AND/OR THERAPEUTIC N/A 12/2021 PAST SURGICAL HISTORY OF ORIF right femur fracture ALLERGIES Phentermine MEDICATIONS WEGOVY 1.7 mg/0.75 mL pen injector INJECT ONE PEN OF 1.7MG ONCE WEEKLY SUBCUTANEOUSLY LIDOCAINE VISCOUS 2 % solution Take 15 mL by mouth three times a day as needed. Mix with one tablespoon liquid maalox (OTC) and one tablespoon benadryl liquid (OTC) and swish and swallow or spit out. (Patient not taking: Reported on 09/04/2024) naltrexone-bupropion (CONTRAVE) 8-90 mg ER tablet Take 2 tablets by mouth once daily. (Patient not taking: Reported on 09/04/2024) FAMILY HISTORY Problem Relation Age of Onset None Mother None Father other (tuberculosis [Other]) Brother Rectal Cancer Maternal Grandmother Breast Cancer Paternal Grandmother Brain Cancer Paternal Grandmother Social History Tobacco Use Smoking status: Never Smokeless tobacco: Never Substance Use Topics Alcohol use: Yes Comment: occasional Drug use: No BP 115/82 Pulse 69 Temp 37 C (98.6 F) Resp 18 Wt 80.6 kg (177 lb 11.1 oz) LMP 01/16/2024 (Approximate) SpO2 96% BMI 29.12 kg/m Review of Systems Constitutional: Negative for chills, fever and malaise/fatigue. HENT: Negative for congestion, ear discharge, ear pain, sinus pain and sore throat. Eyes: Negative for blurred vision, pain, discharge and redness. Respiratory: Positive for shortness of breath. Negative for cough, hemoptysis, sputum production, wheezing and stridor. Cardiovascular: Positive for chest pain. Gastrointestinal: Negative for abdominal pain, diarrhea, nausea and vomiting. Musculoskeletal: Negative for myalgias. Skin: Negative for itching and rash. Neurological: Negative for dizziness and headaches. Objective Physical Exam Constitutional: General: She is not in acute distress. Appearance: She is not diaphoretic. HENT: Head: Normocephalic. Jaw: No trismus, tenderness, swelling or pain on movement. Mouth/Throat: Mouth: Mucous membranes are moist. Pharynx: Oropharynx is clear. Uvula midline. No pharyngeal swelling, oropharyngeal exudate, posterior oropharyngeal erythema or uvula swelling. Eyes: Conjunctiva/sclera: Conjunctivae normal. Pupils: Pupils are equal, round, and reactive to light. Cardiovascular: Rate and Rhythm: Normal rate and regular rhythm. Heart sounds: Normal heart sounds. Pulmonary: Effort: Pulmonary effort is normal. No tachypnea, accessory muscle usage or respiratory distress. Breath sounds: Normal breath sounds. No stridor. No wheezing, rhonchi or rales. Abdominal: General: There is no distension. Palpations: Abdomen is soft. Tenderness: There is no abdominal tenderness. There is no guarding or rebound. Musculoskeletal: Cervical back: Normal range of motion and neck supple. No edema, erythema, rigidity or tenderness. No pain with movement. Normal range of motion. Lymphadenopathy: Cervical: No cervical adenopathy. Skin: General: Skin is warm and dry. Neurological: Mental Status: She is alert and oriented to person, place, and time. ASSESSMENT/PLAN: 1. Chest pain, unspecified type - ICD9: 786.50, ICD10: R07.9 Diagnosis chest pain shortness of breath. With pain worse with exertion refer patient to ED for further workup. Verbalized understand agrees with plan of care Tom Jordan APRN.OBIEE CONSULTANT documented in this encounter [facility] 01-19-2024 Instructions Sapphire Marsh APRN.SHAINA - 01/19/2024 9:13 AM EST Rest, increase water intake Motrin or Tylenol as needed for fever or pain. Salt water gargles, chloraseptic spray or lozenges as needed for sore throat. Warm beverages, honey. Nasal saline spray as needed Cool mist humidifier at night A cold normally lasts 7-10 days. If your symptoms are lasting longer, develop fever, or worsening by that time instead of improving then return to clinic or follow up with PCP for re-evaluation. Tylenol (generic acetaminophen) 500 mg-2 tabs every 8 hrs. as needed for fever and aches Ibuprofen 600 mg (3-200mg tablets) every 6 hours Flonase or Nasonex 2 sprays in each nostril once a day Claritin - D or Zyrtec - D daily for 7-10 days to help with ears documented in this encounter [facility] 01-19-2024 Note HNO ID: [id number] Author: SAPPHIRE MARSH APRN.OBIEE CONSULTANT Service: ? Author Type: Nurse Practitioner Type: Progress Notes Filed: 01/19/2024 09:22 Note Text: Subjective The history is provided by the patient. No agency recruiter was used. REAGAN Hong is a 38 year old female who presents today for CC of sore throat and ear pain for 1 day. She denies any cough, congestion, runny nose, nausea, vomiting or diarrhea. She denies any known exposure. She has used ibuprofen/tylenol BP 102/68 Pulse 75 Temp 36.7 ?C (98.1 ?F) (Left Tympanic) Resp 16 Wt 87.9 kg (193 lb 12.6 oz) LMP 01/16/2024 (Approximate) SpO2 97% BMI 31.76 kg/m? Social History Tobacco Use Smoking status: Never Smokeless tobacco: Never Substance Use Topics Alcohol use: Yes Comment: occasional Drug use: No PAST MEDICAL HISTORY Diagnosis Date NEGATIVE MEDICAL HISTORY I have confirmed and edited as necessary, the [facility] Review of Systems Constitutional: Negative for chills and fever. HENT: Positive for ear pain and sore throat. Negative for congestion and sinus pain. Respiratory: Negative for cough, sputum production, shortness of breath and wheezing. Cardiovascular: Negative for chest pain. Musculoskeletal: Negative for myalgias. Neurological: Negative for headaches. Objective Physical Exam Vitals and nursing note reviewed. HENT: Head: Normocephalic and atraumatic. Right Ear: Ear canal and external ear normal. A middle ear effusion (clear) is present. Tympanic membrane is bulging. Left Ear: Ear canal and external ear normal. A middle ear effusion (clear) is present. Tympanic membrane is bulging. Nose: No mucosal edema, congestion or rhinorrhea. Right Sinus: No maxillary sinus tenderness or frontal sinus tenderness. Left Sinus: No maxillary sinus tenderness or frontal sinus tenderness. Mouth/Throat: Pharynx: Uvula midline. No oropharyngeal exudate or posterior oropharyngeal erythema. Cardiovascular: Rate and Rhythm: Normal rate and regular rhythm. Heart sounds: Normal heart sounds. Pulmonary: Effort: Pulmonary effort is normal. Breath sounds: Normal breath sounds. Lymphadenopathy: Head: Right side of head: No submental, submandibular or tonsillar adenopathy. Left side of head: No submental, submandibular or tonsillar adenopathy. Cervical: No cervical adenopathy. Skin: General: Skin is warm and dry. Neurological: Mental Status: She is alert. Psychiatric: Mood and Affect: Affect normal. ASSESSMENT/PLAN: 1. Sore throat - ICD9: 462, ICD10: J02.9 - suspect viral - Group A strep molecular testing negative - Discussed supportive care treatment with fluids, rest and analgesia. - The patient may also use warm salt water gargles, throat lozenges and/or OTC throat spray as needed. - Contagious dz precautions discussed- including considered contagious until on antibiotics for 24 hours - The patient should follow up in one week if symptoms persist or worsen - Call back if drooling, increased temperature, symptoms of dehydration and/or still sick in one week BMX solution as needed for throat pain - STREP A MOLECULAR (POC) 2. Eustachian tube dysfunction, bilateral - ICD9: 381.81, ICD10: H69.93 Zyrtec - D Flonase/nasocort as directed Diagnosis and treatment plan were discussed and questions were answered to the patient's satisfaction. Pt acknowledged understanding of concepts and follow up plan. Specific signs and symptoms that would indicate the need for higher level of care were discussed in detail warranting prompt ER evaluation. Sapphire Marsh APRN.[facility] 01-19-2024 History of Present illness Narrative Subjective The history is provided by the patient. No agency recruiter was used. HPI Mariel Hong is a 38 year old female who presents today for CC of sore throat and ear pain for 1 day. She denies any cough, congestion, runny nose, nausea, vomiting or diarrhea. She denies any known exposure. She has used ibuprofen/tylenol BP 102/68 Pulse 75 Temp 36.7 C (98.1 F) (Left Tympanic) Resp 16 Wt 87.9 kg (193 lb 12.6 oz) LMP 01/16/2024 (Approximate) SpO2 97% BMI 31.76 kg/m Social History Tobacco Use Smoking status: Never Smokeless tobacco: Never Substance Use Topics Alcohol use: Yes Comment: occasional Drug use: No PAST MEDICAL HISTORY Diagnosis Date NEGATIVE MEDICAL HISTORY I have confirmed and edited as necessary, the [facility] Review of Systems Constitutional: Negative for chills and fever. HENT: Positive for ear pain and sore throat. Negative for congestion and sinus pain. Respiratory: Negative for cough, sputum production, shortness of breath and wheezing. Cardiovascular: Negative for chest pain. Musculoskeletal: Negative for myalgias. Neurological: Negative for headaches. Objective Physical Exam Vitals and nursing note reviewed. HENT: Head: Normocephalic and atraumatic. Right Ear: Ear canal and external ear normal. A middle ear effusion (clear) is present. Tympanic membrane is bulging. Left Ear: Ear canal and external ear normal. A middle ear effusion (clear) is present. Tympanic membrane is bulging. Nose: No mucosal edema, congestion or rhinorrhea. Right Sinus: No maxillary sinus tenderness or frontal sinus tenderness. Left Sinus: No maxillary sinus tenderness or frontal sinus tenderness. Mouth/Throat: Pharynx: Uvula midline. No oropharyngeal exudate or posterior oropharyngeal erythema. Cardiovascular: Rate and Rhythm: Normal rate and regular rhythm. Heart sounds: Normal heart sounds. Pulmonary: Effort: Pulmonary effort is normal. Breath sounds: Normal breath sounds. Lymphadenopathy: Head: Right side of head: No submental, submandibular or tonsillar adenopathy. Left side of head: No submental, submandibular or tonsillar adenopathy. Cervical: No cervical adenopathy. Skin: General: Skin is warm and dry. Neurological: Mental Status: She is alert. Psychiatric: Mood and Affect: Affect normal. ASSESSMENT/PLAN: 1. Sore throat - ICD9: 462, ICD10: J02.9 - suspect viral - Group A strep molecular testing negative - Discussed supportive care treatment with fluids, rest and analgesia. - The patient may also use warm salt water gargles, throat lozenges and/or OTC throat spray as needed. - Contagious dz precautions discussed- including considered contagious until on antibiotics for 24 hours - The patient should follow up in one week if symptoms persist or worsen - Call back if drooling, increased temperature, symptoms of dehydration and/or still sick in one week BMX solution as needed for throat pain - STREP A MOLECULAR (POC) 2. Eustachian tube dysfunction, bilateral - ICD9: 381.81, ICD10: H69.93 Zyrtec - D Flonase/nasocort as directed Diagnosis and treatment plan were discussed and questions were answered to the patient's satisfaction. Pt acknowledged understanding of concepts and follow up plan. Specific signs and symptoms that would indicate the need for higher level of care were discussed in detail warranting prompt ER evaluation. Sapphire Marsh APRN.[employer] documented in this encounter [facility] 10-24-2023 Note Patient Outreach ([place] [facility]) MARIEL HONG ([id number]) 1985 F Date Time Provider Department 10/24/23 FRANCI WING During your visit today, we recorded the following information about you: Allergies As of Date: 10/24/2023 Noted Allergy Reaction PHENTERMINE 02/05/2023 1 - Mental Status Change 2 - Rash Comments: Depression and anxiety Date Reviewed: 06/22/2023 Reviewed by: Franci Wing APRN.CNP - Fully Assessed Visit Diagnosis:Encounter for screening mammogram for breast cancer [Z12.31] Order(s):JAYLA SCREENING W BRADY [[id number]] Order #: [id number] FUTURE Prescriptions as of 10/29/2023 - naltrexone-bupropion (CONTRAVE) 8-90 mg ER tablet Take 2 tablets by mouth once daily. Problem List As Of Date 10/24/2023 Noted Resolved Obesity, Class II, BMI 35-39.9 [E66.9] 07/04/2022 Attention deficit disorder (ADD) in adult [F98.*07/04/2022 Encounter Status:Closed by HERB CRUZUSER on 10/29/23 [facility] 06-22-2023 History of Present illness Narrative SUBJECTIVE Mariel Hong is a 37 year old female here today for a check up on her medical problems. Chief Complaint Patient presents with: Bleeding/Bruising Fatigue Headache HPI Mariel Hong is a 37 year old female. She presents today acutely for concerns of issues with bleeding/bruising, fatigue and headaches. Overall just not feeling great. Onset was about 2 months ago. Not improving. Headaches almost daily. Feeling more tired. Easy bruising and the brusing takes several weeks to resolve. Periods irregualr but heavy, might have menstrual bleeding for 20 days. 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 Calvin. Using tylenol, avoiding NSAIDs. Dizzy at times. Sleep is okay, not the greatest, she tends to stay up late. Getting adequate water, good nutrition. No family history of bleeding disorders. Her medications were reviewed today and her list is now up to date. Medications Current Outpatient Medications Medication Sig naltrexone-bupropion (CONTRAVE) 8-90 mg ER tablet Take 2 tablets by mouth once daily. No current facility-administered medications for this visit. ALLERGIES Allergen Reactions Phentermine Mental Status Change, Rash Depression and anxiety ACTIVE PROBLEM LIST Obesity, Class II, Bmi 35-39.9 - 07/04/2022 Attention Deficit Disorder (Add) in Adult - 07/04/2022 Social History Tobacco Use Smoking status: Never Smokeless tobacco: Never Substance Use Topics Alcohol use: Yes Comment: occasional Drug use: No Review of Systems Respiratory: Negative. Cardiovascular: Negative. Hematological: Bruises/bleeds easily. OBJECTIVE BP 120/80 Pulse 75 Wt 202 lb (91.6kg) SpO2 98% LMP 06/08/2023 Physical Exam Vitals and nursing note reviewed. Constitutional: General: She is awake. She is not in acute distress. Appearance: Normal appearance. She is well-developed and well-groomed. She is not ill-appearing, toxic-appearing or diaphoretic. HENT: Head: Normocephalic. Right Ear: External ear normal. Left Ear: External ear normal. Nose: Nose normal. Eyes: General: Vision grossly intact. Conjunctiva/sclera: Conjunctivae normal. Pupils: Pupils are equal, round, and reactive to light. Neck: Vascular: No JVD. Trachea: Trachea normal. Cardiovascular: Rate and Rhythm: Normal rate and regular rhythm. Pulses: Normal pulses. Heart sounds: Normal heart sounds. No murmur heard. Pulmonary: Effort: Pulmonary effort is normal. No accessory muscle usage, prolonged expiration or respiratory distress. Breath sounds: Normal breath sounds. Musculoskeletal: Cervical back: Neck supple. Skin: General: Skin is warm and dry. Capillary Refill: Capillary refill takes less than 2 seconds. Findings: Bruising present. Comments: Light purple, faded healing bruise to the left back of hand Neurological: General: No focal deficit present. Mental Status: She is alert and oriented to person, place, and time. Mental status is at baseline. Psychiatric: Attention and Perception: Attention and perception normal. Mood and Affect: Mood and affect normal. Speech: Speech normal. Behavior: Behavior normal. Behavior is cooperative. Thought Content: Thought content normal. Cognition and Memory: Cognition and memory normal. Judgment: Judgment normal. ASSESSMENT/PLAN: 1. Easy bruising - ICD9: 782.7, ICD10: R23.3 (primary diagnosis) Suspect anemia/iron def as a cause for her symptoms given her heavy menstrual bleeding. We will check labs and call results Sunday to decide next steps. Avoid NSAIDs. - COMPLETE BLOOD COUNT AND DIFFERENTIAL - COMPREHENSIVE METABOLIC PANEL - IRON AND TIBC - FERRITIN - VITAMIN B12 - MAGNESIUM - THYROID STIMULATING HORMONE - VITAMIN C - FOLATE, SERUM 2. Anemia, unspecified type - ICD9: 285.9, ICD10: D64.9 - COMPLETE BLOOD COUNT AND DIFFERENTIAL - COMPREHENSIVE METABOLIC PANEL - IRON AND TIBC - FERRITIN - VITAMIN B12 - MAGNESIUM - THYROID STIMULATING HORMONE - VITAMIN C - FOLATE, SERUM 3. DUB (dysfunctional uterine bleeding) - ICD9: 626.8, ICD10: N93.8 - COMPLETE BLOOD COUNT AND DIFFERENTIAL - COMPREHENSIVE METABOLIC PANEL - IRON AND TIBC - FERRITIN - VITAMIN B12 - MAGNESIUM - THYROID STIMULATING HORMONE - VITAMIN C - FOLATE, SERUM 4. Encounter for therapeutic drug monitoring - ICD9: V58.83, ICD10: Z51.81 - COMPLETE BLOOD COUNT AND DIFFERENTIAL - COMPREHENSIVE METABOLIC PANEL - IRON AND TIBC - FERRITIN - VITAMIN B12 - MAGNESIUM - THYROID STIMULATING HORMONE - VITAMIN C - FOLATE, SERUM Portions of this note have been entered by ancillary staff. I have reviewed and when necessary edited, so that they are an adequate record of my encounter with this patient Please note that parts of this document were created using voice recognition software and therefore may contain grammatical errors. Patient verbalizes understanding of instructions from today's visit and in agreement with treatment plan. Questions answered. Agrees to call the office if questions, concerns of issues with acute symptoms not improving or if they worsen. See diagnoses and orders for additional plan(s). Allergies and medications were reviewed, list was updated, and refills given if needed. Past medical, surgical, social, and family history reviewed and updated as appropriate. Encouraged proper diet & exercise as well as compliance with taking medications. Age-appropriate health preventative measures were discussed. Return if symptoms worsen or fail to improve, for Keep next scheduled appointment.. Franci Wing APRN-[employer] CONSULTANT documented in this encounter [facility] 01-30-2023 Note HNO ID: [id number] Author: Henrry Jha R Ac Service: ? Author Type: Diplomat of Acupuncture Type: Progress Notes Filed: 01/30/2023 1:51 PM Note Text: No show [facility] 01-30-2023 History of Present illness Narrative No show documented in this encounter [facility] 01-10-2023 History of Present illness Narrative SUBJECTIVE Mariel Hong is a 37 year old female here today for a check up on her medical problems. Chief Complaint Patient presents with: Weight Problem HPI Mariel Hong is a 37 year old female. Her today for concerns of weight. Weight 06/2022 was 217, 221 today. Has been working on improving diet. Feeling more like she is gaining weight or stagnant. Before her she was on contrave, no side effects with this and this was helpful. Right now is this highest weight has been, 140 lowest. For diet she has tried intermittent fasting, limiting calories, limiting processed food and fast food. Working out 2-3 days a week. Does cardio and light strength training/weight lifting. Feeling tired a lot of the time. Stress is manageable, life is busy. Sleeping okay. Not tracking heart rate or steps. No gestational diabetes. Gained around 25 pounds with . She does get food cravings often with her work schedule. Having irregular periods, has been since , checked for PCOS and no significant findings with that. On metformin before. Not really having issues with the dizziness, palpitations. Saw cardiology, no significant issues found. Her medications were reviewed today and her list is now up to date. Medications Current Outpatient Medications Medication Sig Phentermine HCl 37.5 mg tablet Take 1 tablet by mouth once daily for 30 days. Before breakfast No current facility-administered medications for this visit. ALLERGIES No Known Allergies ACTIVE PROBLEM LIST Obesity, Class II, Bmi 35-39.9 - 07/04/2022 Attention Deficit Disorder (Add) in Adult - 07/04/2022 Social History Tobacco Use Smoking status: Never Smokeless tobacco: Never Substance Use Topics Alcohol use: Yes Comment: occasional Drug use: No Review of Systems Constitutional: Positive for unexpected weight change. Respiratory: Negative. Cardiovascular: Negative. OBJECTIVE BP 110/70 Pulse 64 Wt 221 lb (100.2kg) SpO2 98% LMP 10/31/2022 Physical Exam Vitals and nursing note reviewed. Constitutional: General: She is awake. She is not in acute distress. Appearance: Normal appearance. She is well-developed and well-groomed. She is obese. She is not ill-appearing, toxic-appearing or diaphoretic. HENT: Head: Normocephalic. Right Ear: External ear normal. Left Ear: External ear normal. Nose: Nose normal. Eyes: General: Vision grossly intact. Conjunctiva/sclera: Conjunctivae normal. Pupils: Pupils are equal, round, and reactive to light. Neck: Vascular: No JVD. Trachea: Trachea normal. Pulmonary: Effort: Pulmonary effort is normal. No accessory muscle usage, prolonged expiration or respiratory distress. Musculoskeletal: Cervical back: Neck supple. Skin: General: Skin is warm and dry. Capillary Refill: Capillary refill takes less than 2 seconds. Neurological: General: No focal deficit present. Mental Status: She is alert and oriented to person, place, and time. Mental status is at baseline. Psychiatric: Attention and Perception: Attention and perception normal. Mood and Affect: Mood and affect normal. Speech: Speech normal. Behavior: Behavior normal. Behavior is cooperative. Thought Content: Thought content normal. Cognition and Memory: Cognition and memory normal. Judgment: Judgment normal. ASSESSMENT/PLAN: 1. Obesity, Class II, BMI 35-39.9 - ICD9: 278.00, ICD10: E66.9 (primary diagnosis) Discussed options, currently not taking her Vyvanse but has tolerated the medication well, we will have her trial phentermine along with continuing her other weight loss measures. Spent time discussing current weight loss activities including exercises and diet and ways to further modify this to help with weight loss. - PHENTERMINE 37.5 MG TABLET 2. Attention deficit disorder (ADD) in adult - ICD9: 314.00, ICD10: F98.8 - PHENTERMINE 37.5 MG TABLET PDMP website checked and validated. All prescriptions have been APPROPRIATELY filled. No suspicious activity was identified. 01/10/2023 by Franci Wing APRN.[employer] CONSULTANT I spent a total of 31 minutes on the date of the service which included preparing to see the patient, [id number] patient care, completing clinical documentation, obtaining and/or reviewing separately obtained history, performing a medically appropriate examination, counseling and educating the patient/family/caregiver, ordering medications, tests, or procedures, communicating with other HCPs (not separately reported), independently interpreting results (not separately reported), communicating results to the patient/family/caregiver, and care coordination (not separately reported). Portions of this note have been entered by ancillary staff. I have reviewed and when necessary edited, so that they are an adequate record of my encounter with this patient Please note that parts of this document were created using voice recognition software and therefore may contain grammatical errors. Patient verbalizes understanding of instructions from today's visit and in agreement with treatment plan. Questions answered. Agrees to call the office if questions, concerns of issues with acute symptoms not improving or if they worsen. See diagnoses and orders for additional plan(s). Allergies and medications were reviewed, list was updated, and refills given if needed. Past medical, surgical, social, and family history reviewed and updated as appropriate. Encouraged proper diet & exercise as well as compliance with taking medications. Age-appropriate health preventative measures were discussed. Return in about 4 weeks (around 02/07/2023) for recheck on new medication.. Franci Wing APRN-SHAINA documented in this encounter [facility] 12-28-2022 Note HNO ID: [id number] Author: Henrry Jha R Ac Service: ? Author Type: Diplomat of Acupuncture Type: Progress Notes Filed: 12/28/2022 1:40 PM Note Text: No show [facility] 12-28-2022 History of Present illness Narrative No show documented in this encounter [facility] 12-19-2022 History of Present illness Narrative Subjective Ear Pain Associated symptoms include congestion and coughing. Pertinent negatives include no chills, fever, myalgias or sore throat. Mariel Hong is a 37 year old female who presents with sinus congestion and drainage, cough for one week and left ear pain and feeling cloggedfor the past 3 days. She flew home from [place] yesterday and had excruciating pain during the flight. She hears popping in her left ear today. She had a fever the first 3 days of her illness but that has resolved. She has been taking OTC cold medication. Review of Systems Constitutional: Negative for chills and fever. HENT: Positive for congestion, ear pain, hearing loss and tinnitus. Negative for ear discharge and sore throat. Respiratory: Positive for cough. Cardiovascular: Negative. Musculoskeletal: Negative for myalgias. BP 120/82 Pulse 74 Temp 37 C (98.6 F) (Tympanic) Resp 16 Wt 99.3 kg (219 lb) LMP 06/22/2022 (Approximate) SpO2 99% BMI 35.89 kg/m PAST MEDICAL HISTORY Diagnosis Date NEGATIVE MEDICAL HISTORY PAST SURGICAL HISTORY Procedure Laterality Date D&C, DIAG AND/OR THERAPEUTIC N/A 12/2021 PAST SURGICAL HISTORY OF ORIF right femur fracture ALLERGIES Patient has no known allergies. MEDICATIONS amoxicillin-clavulanate potassium (AUGMENTIN) 875-125 mg per tablet Take 1 tablet by mouth two times a day for 7 days. metoprolol succinate ER (TOPROL XL) 25 mg 24 hr tablet Take 25 mg by mouth. (Patient not taking: Reported on 12/19/2022) VYVANSE 20 mg capsule Take 20 mg by mouth once daily. (Patient not taking: Reported on 12/19/2022) Ciclopirox (LOPROX) 8 % solution Apply to affected area daily at bedtime. (Patient not taking: No sig reported) FAMILY HISTORY Problem Relation Age of Onset None Mother None Father other (tuberculosis [Other]) Brother Rectal Cancer Maternal Grandmother Breast Cancer Paternal Grandmother Brain Cancer Paternal Grandmother Social History Tobacco Use Smoking status: Never Smokeless tobacco: Never Substance Use Topics Alcohol use: Yes Comment: occasional Drug use: No Objective Physical Exam Vitals and nursing note reviewed. Constitutional: General: She is not in acute distress. Appearance: Normal appearance. She is not ill-appearing. HENT: Right Ear: Ear canal and external ear normal. A middle ear effusion is present. Tympanic membrane is injected. Left Ear: Ear canal and external ear normal. A middle ear effusion is present. Tympanic membrane is injected and erythematous. Nose: Mucosal edema, congestion and rhinorrhea present. Mouth/Throat: Pharynx: Uvula midline. No oropharyngeal exudate or posterior oropharyngeal erythema. Cardiovascular: Rate and Rhythm: Normal rate and regular rhythm. Heart sounds: Normal heart sounds. Pulmonary: Effort: Pulmonary effort is normal. No respiratory distress. Breath sounds: Normal breath sounds. No wheezing or rales. Musculoskeletal: Cervical back: Neck supple. Lymphadenopathy: Cervical: No cervical adenopathy. Skin: General: Skin is warm and dry. Findings: No erythema or rash. Neurological: Mental Status: She is alert. ASSESSMENT/PLAN: 1. Bacterial sinusitis - ICD9: 473.9, 041.9, ICD10: J32.9, B96.89 (primary diagnosis) - Will begin treatment with as per antibiotic as written, see orders - Supportive care with plenty of fluids, rest, and analgesia prn. - AMOXICILLIN 875 MG-POTASSIUM CLAVULANATE 125 MG TABLET 2. Other acute nonsuppurative otitis media of both ears, recurrence not specified - ICD9: 381.00, ICD10: H65.193 - Will begin treatment with as per antibiotic as written, see orders - Supportive care with plenty of fluids, rest, and analgesia prn. - AMOXICILLIN 875 MG-POTASSIUM CLAVULANATE 125 MG TABLET - Follow-up with your PCP in 3-5 days if symptoms have not improved or sooner if symptoms worsen - Discussed red flags and need for immediate medical evaluation if any occur. - Discussed supportive care treatment with fluids, rest and analgesia. - Discussed expected course of illness Mayte Mack APRN.CNP documented in this encounter [facility] 12-19-2022 Instructions Mayte Mack APRN.CNP - 12/19/2022 5:01 PM EDT Images from the original note were not included. ASSESSMENT/PLAN: 1. Bacterial sinusitis - ICD9: 473.9, 041.9, ICD10: J32.9, B96.89 (primary diagnosis) - Will begin treatment with as per antibiotic as written, see orders - Supportive care with plenty of fluids, rest, and analgesia prn. - AMOXICILLIN 875 MG-POTASSIUM CLAVULANATE 125 MG TABLET 2. Other acute nonsuppurative otitis media of both ears, recurrence not specified - ICD9: 381.00, ICD10: H65.193 - Will begin treatment with as per antibiotic as written, see orders - Supportive care with plenty of fluids, rest, and analgesia prn. - AMOXICILLIN 875 MG-POTASSIUM CLAVULANATE 125 MG TABLET - Follow-up with your PCP in 3-5 days if symptoms have not improved or sooner if symptoms worsen - Discussed red flags and need for immediate medical evaluation if any occur. - Discussed supportive care treatment with fluids, rest and analgesia. - Discussed expected course of illness Mayte Mack APRN.CNP Adult Sinusitis Patient Education What is Sinusitis? Sinusitis [cojx-rgk-hykp-tis] is inflammation of the sinuses or swelling of the lining of the sinus cavity or nose. During an infection the sinuses become blocked with fluid causing swelling of the lining of the sinuses. Symptoms: (viral and bacterial infections) Stuffy nose Runny nose Postnasal drip Fever Toothache Headache Tiredness Cough Sore throat Face and head pressure and or pain Common causes: 98% of sinus infections are viral caused by viruses. Risk Factors of Sinusitis Include: Allergies, air pollution, indoor humidity and outdoor temperature changes, andstructural changes in the nose may contribute to sinus pain, pressure and congestion. When to get help? Temperature greater than 100.4 F Symptoms lasting more than 10 days or worsening symptoms greater than 7-10 days. If you do not improve or worsen after a course of antibiotics, you should be re-examined. Diagnosis and Treatment: Your healthcare provider will ask a number of questions about your symptoms and how long they have occurred. If symptoms of sinusitis persist greater than 10 days, it is possible you have a bacterial sinus infection and an antibiotic is prescribed. If it is viral, antibiotics will not help. You may be instructed to take llui-inm-cufyvlp medications for symptoms. including fever reducers acetaminophen or ibuprofen, nasal saline spray, cough and cold preparations and decongestants as prescribed by the physician, nurse practitioner or physician nurse assistant. Self-Care and Prevention: Rest Fluids for hydration Good hand washing Humidifier Avoid smoking and exposure to second hand smoke Avoid sick contacts OTITIS MEDIA GENERAL INFORMATION: Otitis media is an infection of the middle ear. The middle ear sits behind the eardrum. This infection may be caused by a virus or bacteria and often follows a cold. Children often have repeat ear infections. Otitis media is not contagious. INSTRUCTIONS: 1. An antibiotic has been prescribed. It should be taken exactly as prescribed. Do not stop the medicine even if the symptoms go away. 2. [id number] pain medication may be taken or other pain medication as prescribed by the doctor. 3. Nothing should be placed in the ear unless instructed by your doctor. 4. The patient may return to school/daycare or work when the temperature is normal (98.6 F or 37 C). 5. The patient should not swim while the ear is infected. CONTACT YOUR DOCTOR IF YOU OR YOUR CHILD: 1. Does not feel better within 36 hours. 2. Develops a temperature over 102E F (39E C). 3. Starts vomiting or has diarrhea. 4. Develops drainage from the affected ear. 5. Has any new problem that may be related to the medicine prescribed. RETURN TO THE ED IF: 1. You or your child has a severe headache or pain around the ear. 2. You or your child notice swelling around the ear. 3. You or your child has a seizure (convulsion), twitching of the facial muscles, or passes out. 4. You or your child is dizzy, has a stiff neck, or cannot walk or talk normally. 5. Your child becomes more irritable or listless (not interested in his or her surroundings, does not get soothed by you holding him or her). documented in this encounter [facility] 08-14-2022 Miscellaneous Notes Pt was notified of the results. Pt verbalized understanding. Marzena Steven MA Please call patient and let her know that urine culture did not reveal any significant bacterial growth, revealed Possible contamination. May continue Macrobid if symptoms are improving. If symptoms not improving, follow-up with PCP. documented in this encounter [facility] 08-13-2022 Karla Mack APRN.SHAINA - 08/13/2022 11:17 AM EDT ASSESSMENT/PLAN: 1. Urinary frequency - ICD9: 788.41, ICD10: R35.0 acute - UA positive for casimiro esterase, hematuria, and proteinuria - Send urine for culture - Begin treatment with Macrobid 100 mg BID for 5 days - Patient education for prevention given - UA DIP, URINE (POC) - URINE CULTURE - NITROFURANTOIN MONOHYDRATE & MACROCRYSTAL 100 MG ORAL CAP 2. Irregular menses - ICD9: 626.4, ICD10: N92.6 - HCG QUAL UR B/O- negative in office. - Follow-up with your PCP in 3-5 days if symptoms have not improved or sooner if symptoms worsen - Discussed red flags and need for immediate medical evaluation if any occur. - Discussed supportive care treatment with fluids, rest and analgesia. - Discussed expected course of illness Mayte Mack APRN.[facility] PATIENT INFO BLADDER INFECTION OVERVIEW Bladder infections are one of the most common infections, causing symptoms of burning with urination and needing to urinate frequently. A bladder infection is a type of urinary tract infection (UTI). Bladder infections are more common is women than men. Most women have an uncomplicated bladder infection that is easily treated with a short course of antibiotics. In men, bladder infections may also affect the prostate gland, and a longer course of treatment may be needed. BLADDER INFECTION CAUSES The urinary tract includes the kidneys (which filter urine), ureters (the tube that carries urine from the kidneys to the bladder), the bladder (which stores urine), and urethra (the tube that carries urine out of the bladder). Bacteria do not normally live in these areas. However, bacteria normally live close to the urethra in women and men who are not circumcised. Bladder infections occur when bacteria travel up the urethra into the bladder. Factors that increase the risk of developing a bladder infection include: Vaginal sex Use of spermicides History of past bladder infections Diabetes In men, not being circumcised or having anal sex increase the risk of bladder infections. BLADDER INFECTION SYMPTOMS The typical symptoms of a bladder infection include: Pain or burning when urinating Frequent need to urinate Urgent need to urinate Blood in the urine Fever, back pain, nausea, or vomiting are not common symptoms of a bladder infection, but can occur in people with a kidney infection (pyelonephritis). If you have these symptoms, you should call your doctor or nurse immediately. Is it a bladder infection or something else? -- Burning with urination can also occur in people with vaginitis (eg, yeast infection) or urethritis (inflammation of the urethra). For this reason, it is important to call your healthcare provider before assuming you have a bladder infection. BLADDER INFECTION DIAGNOSIS Simple bladder infections are usually diagnosed based upon your symptoms alone. However, most patients, especially those who have bladder infection symptoms for the first time, should see a healthcare provider for urine testing. Urine culture -- A urine culture is a test that uses a sample of urine to try and grow bacteria in a laboratory. It usually requires about 48 hours to get results. However, a urine culture is not always required to diagnose a bladder infection. Urine culture is often recommended if: You have never had a bladder infection before You have symptoms that are not typical for bladder infection You have had resistant bladder infections before You have frequent bladder infections You do not begin to feel better within 24 to 48 hours after starting antibiotics You are BLADDER INFECTION TREATMENT Bladder infection -- In young, healthy adolescents and adults with a bladder infection, the usual treatment includes a three to seven day course of antibiotics. The typical drugs chosen are: trimethoprim-sulfamethoxazole (Bactrim ), nitrofurantoin (Macrobid ), ciprofloxacin (Cipro ) or levofloxacin (Levaquin ). In men, the infection may involve your prostate gland and treatment is usually given for at least 7 days. Your symptoms should begin to resolve within one day after starting treatment. It is important to take the full course of antibiotics to completely eliminate the infection. If your symptoms persist for more than two or three days after starting treatment, call your healthcare provider. If needed, you can take a prescription medication that numbs the bladder and urethra (phenazopyridine [Pyridium ]) to reduce the burning pain of some UTIs. A similar medication is available without a prescription (eg, Uristat). Both medications change the color of the urine (usually blue or orange) and can interfere with laboratory testing. You should not take these medications for more than 48 hours due to the risk of side effects. These medications do not treat the infection and must be taken along with an antibiotic. Some providers recommend drinking more fluids while treating bladder infections to help flush bacteria from the bladder. Others believe that drinking more fluids may dilute the antibiotic in the bladder and make the medication less effective. No studies have been performed to address this issue. There are also no good studies on the effectiveness of cranberry juice for treating a bladder infection; we do not recommend using cranberry juice to treat bladder infections. Follow-up care -- Follow-up testing is not needed in healthy, young men or women with a bladder infection if symptoms resolve. women are usually asked to have a repeat urine culture one to two weeks after treatment has ended to make sure the bacteria are no longer in the urine. RECURRENT BLADDER INFECTIONS Bladder infections versus other causes -- Some adults, especially women, develop bladder infections frequently. In this case, it is important to confirm that your symptoms (eg, pain or burning, frequency, and urgency) are caused by a bladder infection. Symptoms are usually similar from one infection to another. The best way to confirm an infection is to have a urine culture. If your urine culture is negative for infection, other causes of pain, burning, and frequency should be investigated. There is no reason to take antibiotics if your urine culture is negative. Need for further testing -- If you continue to develop bladder infections, you may require further testing. If you continue to notice blood in your urine after your bladder infection has cleared, you should have further testing. Preventing recurrent UTIs -- Women with recurrent urinary tract infections may be advised to take steps to prevent bladder infections, including one or more of the following: Changes in control -- Women who develop frequent bladder infections and use spermicides, particularly those who also use a diaphragm, may be encouraged to use an alternate method of control. Cranberry products -- Taking cranberry juice or cranberry tablets has been promoted as one way to help prevent frequent bladder infections. However, this has not been proven. Drinking more fluid and urinating after intercourse -- Although studies have not proven that drinking more fluids or urinating soon after intercourse can prevent infection, some healthcare providers recommend these measures since they are not harmful. Drinking more fluid may help to wash out bacteria that enter the bladder. Postmenopausal women -- Postmenopausal women who develop recurrent bladder infections may benefit from using vaginal estrogen. Vaginal estrogen is available in a flexible ring that is worn in the vagina for three months (eg, Estring ), a small tablet (Vagifem ), or a cream (eg, Premarin or Estrace ). Vaginal estrogen is discussed in more detail in a separate topic review. Antibiotics -- A preventive antibiotic treatment may be recommended if you repeatedly develop bladder infections and have not responded to other preventive measures. Antibiotics are highly effective in preventing recurrent bladder infections and can be taken in several different ways. Preventive antibiotic -- You can take a low dose of an antibiotic once per day or three times per week for six months to several years. Antibiotics following intercourse -- In women who develop urinary tract infections after sex, taking a single low dose antibiotic after intercourse can help to prevent bladder infections. Self-treatment -- A plan to begin antibiotics at the first sign of a bladder infection may be recommended in some situations. Before starting this regimen, it is important that you have had testing (urine cultures) to confirm that your symptoms are caused by a bladder infection; some people have symptoms of a bladder infection but do not actually have an infection. documented in this encounter [facility] 08-13-2022 History of Present illness Narrative Subjective HPI Mariel Hong is a 36 year old female who presents with left lower back pain, left flank pain, urinary frequency and she had a slight fever last night. States temp at home was 100.2 degrees F. She did not take any medication for the pain. She has had UTI and kidney stone in the past. LMP was 07/26/22, periods are irregular. She denies concern for . Review of Systems Constitutional: Positive for fever. Respiratory: Negative. Cardiovascular: Negative. Gastrointestinal: Positive for nausea. Negative for abdominal pain, diarrhea and vomiting. Genitourinary: Positive for dysuria, flank pain and frequency. Musculoskeletal: Positive for back pain. BP 128/80 Pulse 69 Temp 36.8 C (98.2 F) Resp 16 Wt 98.4 kg (217 lb) LMP 06/22/2022 (Approximate) SpO2 98% BMI 35.56 kg/m PAST MEDICAL HISTORY Diagnosis Date NEGATIVE MEDICAL HISTORY PAST SURGICAL HISTORY Procedure Laterality Date D&C, DIAG AND/OR THERAPEUTIC N/A 12/2021 PAST SURGICAL HISTORY OF ORIF right femur fracture ALLERGIES Patient has no known allergies. MEDICATIONS metoprolol succinate ER (TOPROL XL) 25 mg 24 hr tablet Take 25 mg by mouth. VYVANSE 20 mg capsule Take 20 mg by mouth once daily. Ciclopirox (LOPROX) 8 % solution Apply to affected area daily at bedtime. (Patient not taking: No sig reported) FAMILY HISTORY Problem Relation Age of Onset None Mother None Father other (tuberculosis [Other]) Brother Rectal Cancer Maternal Grandmother Breast Cancer Paternal Grandmother Brain Cancer Paternal Grandmother Social History Tobacco Use Smoking status: Never Smokeless tobacco: Never Substance Use Topics Alcohol use: Yes Comment: occasional Drug use: No Objective Physical Exam Vitals and nursing note reviewed. Constitutional: Appearance: Normal appearance. Cardiovascular: Rate and Rhythm: Normal rate and regular rhythm. Heart sounds: Normal heart sounds. Pulmonary: Effort: Pulmonary effort is normal. No respiratory distress. Breath sounds: Normal breath sounds. No wheezing or rales. Abdominal: General: There is no distension. Palpations: Abdomen is soft. There is no mass. Tenderness: There is no abdominal tenderness. There is no right CVA tenderness, left CVA tenderness or guarding. Skin: General: Skin is warm and dry. Neurological: Mental Status: She is alert. ASSESSMENT/PLAN: 1. Urinary frequency - ICD9: 788.41, ICD10: R35.0 acute - UA positive for casimiro esterase, hematuria, and proteinuria - Send urine for culture - Begin treatment with Macrobid 100 mg BID for 5 days - Patient education for prevention given - UA DIP, URINE (POC) - URINE CULTURE - NITROFURANTOIN MONOHYDRATE & MACROCRYSTAL 100 MG ORAL CAP 2. Irregular menses - ICD9: 626.4, ICD10: N92.6 - HCG QUAL UR B/O- negative in office. - Follow-up with your PCP in 3-5 days if symptoms have not improved or sooner if symptoms worsen - Discussed red flags and need for immediate medical evaluation if any occur. - Discussed supportive care treatment with fluids, rest and analgesia. - Discussed expected course of illness Mayte Mack APRN.SHAINA documented in this encounter [facility] 08-13-2022 Miscellaneous Notes Reason for call: Left flank pain with low grade fever and increased urinary frequency Outcome: 4 hour recommendation advised, patient agreeable. Patient states she will report [facility] for evaluation within recommended timeframe. Reason for Disposition Pain or burning with passing urine (urination) Answer Assessment - Initial Assessment Questions 1. LOCATION: Left flank and left lower abdomen 2. ONSET: 08/11/21 3. SEVERITY: Patient was woken from sleep in severe pain, but was able to distract herself and use a heating pad to work through it. States it is now more of a dull 4/10 pain. Patient has not taken any OTC medications, continues to use KPad for relief 4. PATTERN: Dull constant pain 5. CAUSE: Possible kidney stone vs infection. Reports she has had a kidney stone in the past, 4 years ago. 6. OTHER SYMPTOMS: Fever last night 100.3. Resolved without treatment. Frequent urination, slight discomfort with urination 7. : Denies Protocols used: Flank [id number] documented in this encounter [facility] 07-24-2022 History of Present illness Narrative SUBJECTIVE Mariel Hong is a 36 year old female here today for a check up on her medical problems. Chief Complaint Patient presents with: Recheck HPI Mariel Hong is a 36 year old female established patient who presents today for follow up on palpitations, dizziness, shortness of breath. Seen 07/04 see HPI from that visit. [facility], she has had dizziness and heart fluttering along with SOB the last 3-4 months. No associated chest pain or chest tightness. Prior work up included a cardiac work up in her 20's that was without significant findings that we know of. She did labs since last visit and they are overall stable. Finished ZIO today. Completed an echo, no valve issues. Normal right ventricle. EF is 71%. Left ventricle noted as small. Some edema generalized, trouble putting on rings at times. Drinks a lot of water, about 2-3 32 ounce containers daily. No excess thirst. Urinating appropriate amounts for the amount of fluid she drinks. Her medications were reviewed today and her list is now up to date. Medications Current Outpatient Medications Medication Sig VYVANSE 20 mg capsule Take 20 mg by mouth once daily. Ciclopirox (LOPROX) 8 % solution Apply to affected area daily at bedtime. (Patient not taking: Reported on 07/24/2022) No current facility-administered medications for this visit. ALLERGIES No Known Allergies ACTIVE PROBLEM LIST Obesity, Class II, Bmi 35-39.9 - 07/04/2022 Attention Deficit Disorder (Add) in Adult - 07/04/2022 Social History Tobacco Use Smoking status: Never Smokeless tobacco: Never Substance Use Topics Alcohol use: Yes Comment: occasional Drug use: No Review of Systems Respiratory: Positive for shortness of breath. Negative for apnea, cough, choking, chest tightness, wheezing and stridor. Cardiovascular: Positive for palpitations. Negative for chest pain. Neurological: Positive for dizziness. Negative for syncope, facial asymmetry, speech difficulty, weakness, numbness and headaches. OBJECTIVE BP 110/70 Pulse 76 Wt 217 lb (98.4kg) SpO2 98% LMP 06/22/2022 Physical Exam Vitals and nursing note reviewed. Constitutional: General: She is awake. She is not in acute distress. Appearance: Normal appearance. She is well-developed and well-groomed. She is obese. She is not ill-appearing, toxic-appearing or diaphoretic. HENT: Head: Normocephalic. Right Ear: External ear normal. Left Ear: External ear normal. Nose: Nose normal. Eyes: General: Vision grossly intact. Conjunctiva/sclera: Conjunctivae normal. Pupils: Pupils are equal, round, and reactive to light. Neck: Vascular: No JVD. Trachea: Trachea normal. Cardiovascular: Rate and Rhythm: Normal rate and regular rhythm. Pulses: Normal pulses. Heart sounds: Normal heart sounds. No murmur heard. Pulmonary: Effort: Pulmonary effort is normal. No accessory muscle usage, prolonged expiration or respiratory distress. Breath sounds: Normal breath sounds. Musculoskeletal: Cervical back: Neck supple. Skin: General: Skin is warm and dry. Capillary Refill: Capillary refill takes less than 2 seconds. Neurological: General: No focal deficit present. Mental Status: She is alert and oriented to person, place, and time. Mental status is at baseline. Psychiatric: Attention and Perception: Attention and perception normal. Mood and Affect: Mood and affect normal. Speech: Speech normal. Behavior: Behavior normal. Behavior is cooperative. Thought Content: Thought content normal. Cognition and Memory: Cognition and memory normal. Judgment: Judgment normal. ASSESSMENT/PLAN: 1. 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 In the mean time her ECHO did show a small left ventricle but normal EF so questionable if this would be of significance or a cause of her symptoms. We will check with cardiology via econsult to get their opinion on the finding and then once the ZIO report is back decide on further needed work up/next steps. 2. Palpitations - ICD9: 785.1, ICD10: R00.2 See above. 3. Shortness of breath - ICD9: 786.05, ICD10: R06.02 See above. 4. Generalized edema - ICD9: 782.3, ICD10: R60.1 See above. Portions of this note have been entered by ancillary staff. I have reviewed and when necessary edited, so that they are an adequate record of my encounter with this patient Please note that parts of this document were created using voice recognition software and therefore may contain grammatical errors. Patient verbalizes understanding of instructions from today's visit and in agreement with treatment plan. Questions answered. Agrees to call the office if questions, concerns of issues with acute symptoms not improving or if they worsen. Return if symptoms worsen or fail to improve. Franci Wing APRN-SHAINA documented in this encounter [facility] 07-04-2022 History of Present illness Narrative SUBJECTIVE Mariel Hong is a 36 year old female here today for a check up on her medical problems. Chief Complaint Patient presents with: Establish Care HPI Mariel Hong is a 36 year old female who presents today to establish care. Prior PCP was Dr. Solis. Medical history significant for infertility, has a 4 year old. On Vyvanse for ADD, taking as needed. Other providers include mental health, Ashley Morris APRN. She has concerns of the last 3-4 months where she has some dizziness, heart feels like it flutters. Had this last week, thought she might pass out. Has not actually passed out or blacked out. Associated shortness of breath but no chest pain or chest tightness. Sometimes some swelling in her feet or legs. History of clotting issues, found with a . No cough. Occurs 2-4 times a week. She did have a cardiac work up in her 20's. Had an EKG, noticed something but not sure what, valve issues maybe. Feeling anxious but because of symptoms, not before symptoms. Exercises twice a week. Walks 30 minutes. Gym sometimes. No recent labs. Some issues with sleep. No concerns for apnea. Weight gain over the last 2 years. No reported family history of cardiac issues. Nail fungus on the left hand. [employer] removed artifical nail yesterday. Has not applied any topicals. Her medications were reviewed today and her list is now up to date. Medications Current Outpatient Medications Medication Sig VYVANSE 20 mg capsule Take 20 mg by mouth once daily. Ciclopirox (LOPROX) 8 % solution Apply to affected area daily at bedtime. Current Facility-Administered Medications Medication Dose Route Frequency perflutren lipid microspheres 1.3 mL in NaCl (PF) 0.9% 10 mL injection (DEFINITY) INTRAVENOUS DIRECTED PRN sodium chloride 0.9 % (flush) 10 mL (BD POSIFLUSH) 10 mL INTRAVENOUS DIRECTED PRN ALLERGIES No Known Allergies ACTIVE PROBLEM LIST Obesity, Class II, Bmi 35-39.9 - 07/04/2022 Attention Deficit Disorder (Add) in Adult - 07/04/2022 Social History Tobacco Use Smoking status: Never Smokeless tobacco: Never Substance Use Topics Alcohol use: Yes Comment: occasional Drug use: No Review of Systems Respiratory: Positive for shortness of breath. Negative for apnea, cough, choking, chest tightness, wheezing and stridor. Cardiovascular: Positive for palpitations and leg swelling. Negative for chest pain. Neurological: Positive for dizziness and light-headedness. Negative for tremors, seizures, syncope, facial asymmetry, speech difficulty, weakness and headaches. OBJECTIVE BP 100/80 Pulse 70 Ht 5' 5.5 (1.66m) Wt 217 lb (98.4kg) SpO2 98% LMP 06/22/2022 BMI 35.55 kg/(m^2). Physical Exam Vitals and nursing note reviewed. Constitutional: General: She is awake. She is not in acute distress. Appearance: Normal appearance. She is well-developed and well-groomed. She is not ill-appearing, toxic-appearing or diaphoretic. HENT: Head: Normocephalic. Right Ear: External ear normal. Left Ear: External ear normal. Nose: Nose normal. Eyes: General: Vision grossly intact. Conjunctiva/sclera: Conjunctivae normal. Pupils: Pupils are equal, round, and reactive to light. Neck: Thyroid: No thyroid mass, thyromegaly or thyroid tenderness. Vascular: No carotid bruit or JVD. Trachea: Trachea normal. Cardiovascular: Rate and Rhythm: Normal rate and regular rhythm. Pulses: Normal pulses. Heart sounds: Normal heart sounds. No murmur heard. Pulmonary: Effort: Pulmonary effort is normal. No accessory muscle usage, prolonged expiration or respiratory distress. Breath sounds: Normal breath sounds. Musculoskeletal: Cervical back: Neck supple. Lymphadenopathy: Cervical: No cervical adenopathy. Skin: General: Skin is warm and dry. Capillary Refill: Capillary refill takes less than 2 seconds. Neurological: General: No focal deficit present. Mental Status: She is alert and oriented to person, place, and time. Mental status is at baseline. Cranial Nerves: Cranial nerves 2-12 are intact. Sensory: Sensation is intact. Motor: Motor function is intact. Coordination: Coordination is intact. Gait: Gait is intact. Psychiatric: Attention and Perception: Attention and perception normal. Mood and Affect: Mood and affect normal. Speech: Speech normal. Behavior: Behavior normal. Behavior is cooperative. Thought Content: Thought content normal. Cognition and Memory: Cognition and memory normal. Judgment: Judgment normal. ASSESSMENT/PLAN: 1. Palpitations - ICD9: 785.1, ICD10: R00.2 (primary diagnosis) Issues with intermittent palpitations, EKG in office shows sinus verónica, no signs of ectopy or arrhythmia. Plan for 14 day ZIO monitor to determine etiology. Check labs today, set up for ECHO due to her other associated symptoms. - MAGNESIUM BLD - TSH BLD - T3 FREE BLD - T4 FREE/FREE THYROX - ECG COMPLETE - ECHO - PERFLUTREN LIPID MICROSPHERES 1.1 MG/ML INJECTION IN NS 10 ML - SODIUM CHLORIDE 0.9 % (FLUSH) INJECTION SYRINGE - OUTSIDE VENDOR CARDIAC OUTPATIENT EXTENDED RHYTHM RECORDING (WITHOUT TELEMETRY) - CBC - CMP 2. Shortness of breath - ICD9: 786.05, ICD10: R06.02 See above, consider chest xray and further pulmonary work up if cardiac testing shows no issues. - ECG COMPLETE - ECHO - PERFLUTREN LIPID MICROSPHERES 1.1 MG/ML INJECTION IN NS 10 ML - SODIUM CHLORIDE 0.9 % (FLUSH) INJECTION SYRINGE - OUTSIDE VENDOR CARDIAC OUTPATIENT EXTENDED RHYTHM RECORDING (WITHOUT TELEMETRY) - CBC - CMP 3. Near syncope - ICD9: 780.2, ICD10: R55 See above plans. Neuro exam without red flags. Could consider carotid ultrasound if other testing normal. - MAGNESIUM BLD - TSH BLD - T3 FREE BLD - T4 FREE/FREE THYROX - ECG COMPLETE - OUTSIDE VENDOR CARDIAC OUTPATIENT EXTENDED RHYTHM RECORDING (WITHOUT TELEMETRY) - CBC - CMP 4. Vitamin D deficiency - ICD9: 268.9, ICD10: E55.9 - VITAMIN D 25 HYDROXY 5. Onychomycosis - ICD9: 110.1, ICD10: B35.1 - CICLOPIROX 8 % TOPICAL SOLUTION 6. Obesity, Class II, BMI 35-39.9 - ICD9: 278.00, ICD10: E66.9 7. Attention deficit disorder (ADD) in adult - ICD9: 314.00, ICD10: F98.8 Following with mental health provider. 8. Encounter to establish care - ICD9: V65.8, ICD10: Z76.89 9. Screening for HIV (human immunodeficiency virus) - ICD9: V73.89, ICD10: Z11.4 - HIV 1 2 COMBO(AG/AB),WITH REFLEX TO DIFFERENTIATION 10. Special screening examination for viral disease - ICD9: V73.99, ICD10: Z11.59 - HEP C AB IA W/CONF SCRN 11. Depression screen - ICD9: V79.0, ICD10: Z13.31 Depression Screening 07/03/2022 07/04/2022 PHQ-2 Score 0 0 PHQ-9 Score 4 - Depression screening tool completed and reviewed. Based on score and interview, patient is not at risk for depression. Screening tool discussed with patient, and I recommended no further intervention at this time. - DEPRESSION SCREENING/ASSESSMENT 12. Encounter for screening for diabetes mellitus - ICD9: V77.1, ICD10: Z13.1 - COMP METABOLIC PANEL 13. Screening for lipid disorders - ICD9: V77.91, ICD10: Z13.220 - LIPID PANEL BASIC Portions of this note have been entered by ancillary staff. I have reviewed and when necessary edited, so that they are an adequate record of my encounter with this patient Please note that parts of this document were created using voice recognition software and therefore may contain grammatical errors. Patient verbalizes understanding of instructions from today's visit and in agreement with treatment plan. Questions answered. Agrees to call the office if questions, concerns of issues with acute symptoms not improving or if they worsen. See diagnoses and orders for additional plan(s). Allergies and medications were reviewed, list was updated, and refills given if needed. Past medical, surgical, social, and family history reviewed and updated as appropriate. Encouraged proper diet & exercise as well as compliance with taking medications. Age-appropriate health preventative measures were discussed. Return in about 3 weeks (around 07/25/2022), or if symptoms worsen or fail to improve. SJ Qureshi documented in this encounter [facility] Evaluation + Plan note Future Appointments Appointment Date:09/07/2022 11:00:00 AM Scheduled Provider:CECE BUTTERFIELD Location[facility] Appointment Type:CV OV Diagnostic Tests PendingAntinuclear Antibody Screen, Serum 08/10/22 [facility] Evaluation note No assessment inform ation available [facility] Work Phone: Evaluation note Diagnosis Palpitations- Primary Shortness of breath Near syncope Syncope and collapse Vitamin D deficiency Unspecified vitamin D deficiency Onychomycosis Dermatophytosis of nail Obesity, Class II, BMI 35-39.9 Obesity, unspecified Attention deficit disorder (ADD) in adult Encounter to establish care Other reasons for seeking consultation Screening for HIV (human immunodeficiency virus) Special screening examination for other specified viral diseases Special screening examination for viral disease Special screening examination for unspecified viral disease Depression screen Screening for depression Encounter for screening for diabetes mellitus Screening for diabetes mellitus Screening for lipid disorders [facility] Diagnosis Disorder of left ventricle of heart- Primary Palpitations Shortness of breath Generalized edema Edema [facility] Diagnosis Urinary frequency- Primary Irregular menses Irregular menstrual cycle [facility] Diagnosis Onset Date Resolution Status Abnormal uterine bleeding ac pankaj Routine gynecological examination noneactive [facility] Work Phone: Evaluation note* Diagnosis Bacterial sinusitis- Primary Unspecified sinusitis (chronic) Other acute nonsuppurative otitis media of both ears, recurrence not specified [facility] Diagnosis No-show for appointment- Primary [facility] Diagnosis Obesity, Class II, BMI 35-39.9- Primary Obesity, unspecified Attention deficit disorder (ADD) in adult [facility] Diagnosis No-show for appointment- Primary [facility] Diagnosis Easy bruising- Primary Other symptoms involving skin and integumentary tissues Anemia, unspecified type DUB (dysfunctional uterine bleeding) Other disorder of menstruation and other abnormal bleeding from female genital tract Encounter for therapeutic drug monitoring documented in this encounter [facility] note* Diagnosis Encounter for screening mammogram for breast cancer documented in this encounter [facility] note* Diagnosis Sore throat- Primary Acute pharyngitis Eustachian tube dysfunction, bilateral documented in this encounter [facility] note* Diagnosis Chest pain, unspecified type- Primary documented in this encounter [facility] course Narrative No data available for this section [facility] Hospital Discharge instructions No data available for this section [facility] Progress note No data available for this section [facility] Reason for referral (narrative)* Diagnostic Procedure Only (Routine) - Authorized Specialty Diagnoses / Procedures Referred By Navin jewell Referred To Contact [facility] Diagnoses Encounter for screening mammogram for breast cancer Procedures JAYLA SCREENING W BRADY SCREENING DIGITAL BREAST TOMOSYNTHESIS BI SCREENING MAMMOGRAPHY BI 2-VIEW BREAST INC Franci Goodwin APRN.CNP [address] [place] [address] [facility] [address] [place] [id number] Referral ID Status Reason Start Date Expiration Date Visits Requested Visits Authorized [id number] Authorized Auto-Generat ed Referral 10/24/2023 11/22/2024 1 1 [facility] ([facility]ative)No reason for referral [facility] Work Phone: Summary Purpose Family History No Family History Records Found Relationship Condition Age at Onset Recorded Date/T kelly grandmother Malignant neoplasm of breast Unknown Advance Directives No Advanced Directives Records Found Advance Directive Response Recorded Date/ Time Living Will No Hester 4th, 2021 11:28am Power of Hand Silvering Supervisor No September 22 11:28am Reason for Referral Specialty Diagnoses / Procedures Referred By Contac t Referred To Contact Diagnoses Onychomycosis Franci Wing APRN.OBIEE CONSULTANT [address] [place] [address] Referral ID Status Reason Start Date Expiration Date V isits Requested Visits Authorized [id number] Pending Review 1 1 Specialty Diagnoses / Procedures Referred By Contac t Referred To Contact [facility] Diagnoses Palpitations Shortness of breath Procedures ECHO ECHO TTHRC R-T 2D W/WOM-MODE COMPL SPEC&COLR D Franci Wing APRN.OBIEE CONSULTANT [address] [place] [address] [facility] [address] [address] Referral ID Status Reason Start Date Expiration Date V isits Requested Visits Authorized [id number] Open Auto-Generate d Referral 07/04/2022 07/04/2023 1 1 Specialty Diagnoses / Procedures Referred By Contac t Referred To Contact [facility] Diagnoses Palpitations Shortness of breath Near syncope Procedures ECG COMPLETE ECG ROUTINE ECG W/LEAST 12 LDS W/I&R Franci Wing APRN.OBIEE CONSULTANT [address] [place] [address] [address] Referral ID Status Reason Start Date Expiration Date V isits Requested Visits Authorized [id number] Closed Auto-Generate d Referral 07/04/2022 07/04/2023 1 1 Specialty Diagnoses / Procedures Referred By Contac t Referred To Contact Diagnoses Obesity, Class II, BMI 35-39.9 Attention deficit disorder (ADD) in adult Franci Wing APRN.OBIEE CONSULTANT [address] [place] [address] Referral ID Status Reason Start Date Expiration Date V isits Requested Visits Authorized [id number] Authorized 01/10/2023 04/12/2023 1 1 Chief Complaint and Reason for Visit 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) , 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 Reason for Visit Abnormal uterine ble eding Routine gynecological examination Additional Source Comments INFORMATION SOURCE (unrecogn ized section and content) DATE CREATED AUTHOR 09/06/2017 [facility] DATE CREATED AUTHOR AUTHOR'S ORGANIZ ATION 12/23/2020 [facility] DATE CREATED AUTHOR AUTHOR'S ORGANIZ ATION 08/12/2022 [facility] DATE CREATED AUTHOR AUTHOR'S ORGANIZ ATION 02/01/2023 [facility] DATE CREATED AUTHOR AUTHOR'S ORGANIZ ATION 08/27/2024 [facility] DATE CREATED AUTHOR AUTHOR'S ORGANIZ ATION 09/08/2024 [facility] Goals (unrecognized section and content) Goals may be documented in a n alternate section No data available for this sectionGoals may be documented in an alternate sectionGoals may be documented in an alternate section Source Comments (unrecognize d section and content) In the event this informatio n is protected by the Federal Confidentiality of Alcohol and Drug Abuse Patient Records regulations: The Federal rules restrict any use of the information to criminally investigate or prosecute any alcohol or drug abuse patient.[facility] the event this information is protected by the Federal Confidentiality of Alcohol and Drug Abuse Patient Records regulations: The Federal rules restrict any use of the information to criminally investigate or prosecute any alcohol or drug abuse patient.[facility] Institute[facility] the event this information is protected by the Federal Confidentiality of Alcohol and Drug Abuse Patient Records regulations: The Federal rules restrict any use of the information to criminally investigate or prosecute any alcohol or drug abuse patient.[facility] Institute[facility] the event this information is protected by the Federal Confidentiality of Alcohol and Drug Abuse Patient Records regulations: The Federal rules restrict any use of the information to criminally investigate or prosecute any alcohol or drug abuse patient.[facility] Institute[facility] the event this information is protected by the Federal Confidentiality of Alcohol and Drug Abuse Patient Records regulations: The Federal rules restrict any use of the information to criminally investigate or prosecute any alcohol or drug abuse patient.[facility] Institute[facility] the event this information is protected by the Federal Confidentiality of Alcohol and Drug Abuse Patient Records regulations: The Federal rules restrict any use of the information to criminally investigate or prosecute any alcohol or drug abuse patient.[facility] Institute[facility] the event this information is protected by the Federal Confidentiality of Alcohol and Drug Abuse Patient Records regulations: The Federal rules restrict any use of the information to criminally investigate or prosecute any alcohol or drug abuse patient.[facility] Institute[facility] the event this information is protected by the Federal Confidentiality of Alcohol and Drug Abuse Patient Records regulations: The Federal rules restrict any use of the information to criminally investigate or prosecute any alcohol or drug abuse patient.[facility] Institute[facility] the event this information is protected by the Federal Confidentiality of Alcohol and Drug Abuse Patient Records regulations: The Federal rules restrict any use of the information to criminally investigate or prosecute any alcohol or drug abuse patient.[facility] Institute[facility] the event this information is protected by the Federal Confidentiality of Alcohol and Drug Abuse Patient Records regulations: The Federal rules restrict any use of the information to criminally investigate or prosecute any alcohol or drug abuse patient.[facility] Institute[facility] the event this information is protected by the Federal Confidentiality of Alcohol and Drug Abuse Patient Records regulations: The Federal rules restrict any use of the information to criminally investigate or prosecute any alcohol or drug abuse patient.[facility] Institute[facility] the event this information is protected by the Federal Confidentiality of Alcohol and Drug Abuse Patient Records regulations: The Federal rules restrict any use of the information to criminally investigate or prosecute any alcohol or drug abuse patient.[facility] Institute[facility] the event this information is protected by the Federal Confidentiality of Alcohol and Drug Abuse Patient Records regulations: The Federal rules restrict any use of the information to criminally investigate or prosecute any alcohol or drug abuse patient.[facility] Reason for Visit (unrecogniz ed section and content) Reason Comments Establish Care Reason Comments Recheck Reason Comments Flank Pain Fever, left flank pa in, frequent pain Reason Comments Pain Left side lower back with fever, possible kidney infection (has had before) Reason Comments Results Reason Comments Ear Pain Left ear pain, fever , cough, drainage and sinus x 1 week Reason Comments No Show Specialty Diagnoses / Procedures Referred By Contac t Referred To Contact [facility] Diagnoses JUNSIK Procedures NEW [place] [address] Referral ID Status Reason Start Date Expiration Date Visits Requested Visits Authorized [id number] Pending Review Do Not Bill Insurance - SP patient 12/28/2022 12/28/2022 1 0 Reason Comments Weight Problem Reason Comments Bleeding/Bruising Fatigue Headache Reason Comments Sore Throat With intermittent fe kelly & BERNIE ear pressure x 1 day Reason Comments Shortness of Breath Chest tightness, upp er back pain x1 day, cough, bodyaches, chills, ST, fever x4 days Care Teams (unrecognized sec tion and content) Political Science Instructor Relationship Specialty Start Date End Date Franci Wing APRN.OBIEE CONSULTANT [address] [place] [id number] PCP - General Internal Medicine 07/04/22 Political Science Instructor Relationship Specialty Start Date End Date Franci Wing APRN.OBIEE CONSULTANT [address] [place] [phone] PCP - General Internal Medicine 07/04/22 Political Science Instructor Relationship Specialty Start Date End Date Franci Wing APRN.OBIEE CONSULTANT [address] [place] [id number] PCP - General Internal Medicine 07/04/22 Political Science Instructor Relationship Specialty Start Date End Date Franci Wing APRN.OBIEE CONSULTANT [address] [place] [id number] PCP - General Internal Medicine 07/04/22 Political Science Instructor Relationship Specialty Start Date End Date Franci Wing APRN.OBIEE CONSULTANT [address] [place] [phone] PCP - General Internal Medicine 07/04/22 Team Status: Active Member Role Status Dates Dr. Raz Solis MD Family Provider Active Dr. Raz Solis MD Primary Care Provider Active Team Status: Inactive Member Role Status Dates Dr. Raz Solis MD Primary Care Provider, Referring Provider Active Sulema Gonzalez SEAM STAYER, SEAM STAYER-C Attending Provider Active Team Status: Inactive Member Role Status Dates Dr. Raz Solis MD Primary Care Provider Active Sulema Gonzalez NP, SEAM STAYER-C Attending Provider, Referring Provider Active Political Science Instructor Relationship Specialty Start Date End Date Franci Wing, MAKE UP MAN.OBIEE CONSULTANT [address] [place] [id number] PCP - General Internal Medicine 07/04/22 Political Science Instructor Relationship Specialty Start Date End Date Franci Wing, MAKE UP MAN.OBIEE CONSULTANT [address] [place] [phone] PCP - General Internal Medicine 07/04/22 Political Science Instructor Relationship Specialty Start Date End Date Franci Wing, MAKE UP MAN.OBIEE CONSULTANT [address] [place] [id number] PCP - General Internal Medicine 07/04/22 Political Science Instructor Relationship Specialty Start Date End Date Franci Wing, MAKE UP MAN.OBIEE CONSULTANT [address] [place] [phone] PCP - General Internal Medicine 07/04/22 Political Science Instructor Relationship Specialty Start Date End Date Franci Wing, MAKE UP MAN.OBIEE CONSULTANT [address] [place] [id number] PCP - General Internal Medicine 07/04/22 Political Science Instructor Relationship Specialty Start Date End Date Franci Wing, MAKE UP MAN.OBIEE CONSULTANT [address] [place] [phone] PCP - General Internal Medicine 07/04/22 Team Status: Active Member Role/Relationship Status Dates Dr. Raz Solis MD Family Provider Active Dr. Raz Solis MD Primary Care Provider Active Team Status: Inactive Member Role/Relationship Status Dates Dr. Raz Solis MD Primary Care Provider Active Start: August 14, 2024 End: August 14, 2024 DANNIE WADE Attending Provider Active Start: J fozia 2024 End: August 14, 2024 DANNIE WADE Referring Provider Active Start: J fozia 2024 End: August 14, 2024 Political Science Instructor Relationship Specialty Start Date End Date Franci Wing APRN.[facility] [address] [place] [address] PCP - General Internal Medicine 07/04/22 FOR RECORDS PERTAINING TO PATIENTS WHO ARE OR HAVE BEEN ENROLLED IN A CHEMICAL DEPENDENCY/SUBSTANCEABUSE PROGRAM, SOME INFORMATION MAY BE OMITTED. This clinical summary was aggregated from multiple sources. Caution should be exercised in using it in the provision of clinical care. This summary normalizes information from multiple sources, and as a consequence, information in this document may materially change the coding, format and clinical context of patient data. In addition, data may be omitted in some cases. CLINICAL DECISIONS SHOULD BE BASED ON THE PRIMARY CLINICAL RECORDS. [employer] provides no warranty or guarantee of the accuracy or completeness of information in this document.
[2024-09-13 05:07] LABS: CRP, High Sensitivity 5.14 mg/L (0.00-3.00); PROGESTERONE 0.2 ng/mL (.)
== END | disposition home or self-care (01) ==
LOC: LAB 11:49
PROVIDERS: PCP Family Medicine
DX: N92.6 Irregular menstruation, unspecified (principal); N97.9 Female infertility, unspecified; D68.61 Antiphospholipid syndrome; R79.82 Elevated C-reactive protein (CRP)
CPT/HCPCS: 36415; 82024; 82088; 82533; 82627; 83001; 83002; 84144; 84244; 84402; 84403; 85027; 86141; 82626

== ENCOUNTER → 2024-09-22 | Outpatient (CLI) | payer BC, SELFPAY | END | disposition home or self-care (01) | LOC: LAB 12:32 | PROVIDERS: PCP Family Medicine | DX: N92.6 Irregular menstruation, unspecified (principal); N97.9 Female infertility, unspecified; D68.61 Antiphospholipid syndrome; R79.82 Elevated C-reactive protein (CRP) | CPT/HCPCS: 82024 ==